=== PATIENT | male | born 1945 ===

== ENCOUNTER 2017-02-06 11:20 | Inpatient (IN) ==
[2017-02-06 11:56] LABS: Basophils % 0.5 % (0.0-0.8); Eosinophils # 0.1 10*3/uL (0.0-0.87); Eosinophils % 1.9 % (0.00-10.9); Hematocrit 33.3 VOL% (42.0-52.0); Hemoglobin 11.8 GM/DL (14.0-18.0); Immature Granulocytes % 0.1 %; Immature Granulocytes Absolute 0.01 #; Lymphocytes # 2.6 10*3/uL (1.4-4.0); Lymphocytes % 35.4 % (21.2-54.2); Mean Corpuscular HGB Conc 35.4 GM/DL (32-36); Mean Corpuscular Hemoglobin 35 PG (27-34); Mean Corpuscular Volume 99.4 FL (87-102); Mean Platelet Volume 9.5 FL (9.6-12.0); Monocytes # 0.9 10*3/uL (0.11-0.8); Monocytes % 11.7 % (1.7-12.7); Neutrophils # 3.8 10*3/uL (1.4-7.4); Neutrophils % 50.4 % (38.7-73.9); Platelet Count 101 T/CUMM (130-400); Red Blood Count 3.35 MC/CUMM (3.8-5.5); Red Cell Distribution Width 15.4 % (9.3-17.3); White Blood Count 7.5 T/CUMM (4-12)
[2017-02-06 12:04] LABS: Apearance,Urine CLEAR (Clear); Bacteria,Urine Occasional /HPF (Few); Bilirubin,Urine Negative (Negative); Blood, Urine Negative (Negative); Glucose,Urine (UA) Negative (Negative); Ketones,Urine Negative (Negative); Nitrite,Urine Negative (Negative); Protein,Urine 100 MG/DL; RBC,Urine 4 /HPF (0-4); Squamous Epithelial Cell,Urine Occasional /HPF (0-10); Urine Color Yellow (Yellow); Urine Specific Gravity 1.009 (1.001-1.035); WBC,Urine 1 /HPF (0-6)
[2017-02-06 12:10] LABS: Albumin 2.2 G/DL (3.4-5.0); Bilirubin,Total 1.5 MG/DL (0.2-1.0); Calcium 8.8 MG/DL (8.5-10.1); Osmolality,Calculated 288.7 MOS/KG (273-304); Total Protein 6.9 G/DL (6.4-8.3)
--- NOTE | 2017-02-06 12:13 | XRay Report ---
XR chest 1V portable Indication: Altered mental status. Comparison: Chest x-ray 01/03/2017 Technique: Portable AP chest was performed. Findings: Elevation of the left hemidiaphragm is demonstrated with stranding opacities overlying the left hemidiaphragm have changed little since comparison study and likely in part chronic. Left upper lung and right lung otherwise clear for degree of inspiration and technique utilized. The heart size is borderline. Mediastinal contours stable. Bones and soft tissues demonstrate no significant abnormalities. Impression: 1. Little change in the chest. No active process is suggested. Stranding within the left lung base is favored to represent a combination of chronic scarring and atelectasis. 02/06/2017 12:10 PM PROCEDURE INTERPRETED AT [facility] DEPARTMENT OF RADIOLOGY Final Report Signed by: Dr. Evens Langston
[2017-02-06 12:14] LABS: Barbiturates Screen,Urine Negative (Negative); Benzodiazepines Screen,Urine Negative (Negative); Cannabinoid Screen,Urine Negative (Negative); Opiate Screen,Urine Negative (Negative); Phencyclidine Screen,Urine Negative (Negative)
--- NOTE | 2017-02-06 12:17 | CT Report ---
CT head/brain wo con Indication: Altered mental status. Comparison: CT head 01/03/2017. Technique: CT of the brain was performed without administration of intravenous contrast. The CT examination was performed using one or more of the following dose reduction techniques: Automatic exposure control, adjustment of the mA and kV according to patient size, use of acute or iterative reconstruction techniques. Findings: There is no evidence of acute intracranial mass, hemorrhage, or infarction. Generalized cerebral atrophy is present. Areas of decreased attenuation within the periventricular white matter and cerebral white matter are present which could be compatible with microvascular ischemia. Moderate vertebral artery atherosclerotic calcification is present. Small focus of low-attenuation within the anterior cortex and white matter of the left frontal lobe may reflect sequelae of watershed infarction. Small focus of low attenuation within the anterior aspect of the right centrum semiovale is stable. The basal cisterns are patent. No significant abnormality is demonstrated to involve the posterior fossa or cerebellum. Left globe is not well visualized but is deformed and small in size. Orbits otherwise demonstrate no significant abnormalities. The paranasal sinuses are clear. No significant abnormality is demonstrated to involve the mastoid air cells. The calvarium and overlying soft tissues demonstrate no evidence of acute pathology. Impression: 1. No CT evidence of acute intracranial pathology. Linear focus of hypoattenuation involving cortex and white matter of the anterior left frontal lobe in a watershed distribution is demonstrated. MRI without intravenous contrast is recommended for further characterization of the brain and exclusion of acute ischemia. 2. Abnormal appearance of the left globe. 02/06/2017 12:12 PM PROCEDURE INTERPRETED AT [facility] DEPARTMENT OF RADIOLOGY Final Report Signed by: Dr. Evens Langston
--- NOTE | 2017-02-06 13:50 | Hospitalist History & Physical ---
<Javier Chang - Last Filed: 02/06/17 13:35> Assessment and Plan (1) Chronic alcohol abuse Status: Acute Assessment and plan: The family adamantly denies that the patient is a current drinker. Although I do not feel that this is the case. His ammonia levels were noted at 85 at the time of admission. We will start alcohol withdrawal protocol and lactulose. We will recheck labs in the a.m. Current Visit: Yes (2) Acute exacerbation of chronic obstructive airways disease Status: Acute Assessment and plan: We will resume home meds as previously ordered and adjust as needed. Current Visit: No (3) Diabetes Status: Acute Assessment and plan: We will start Accu-Cheks with sliding scale coverage, obtain hemoglobin A1c, and monitor. Current Visit: No (4) HTN (hypertension) Status: Acute Assessment and plan: We will resume home medications and adjust as needed. Current Visit: No History of Present Illness Chief complaint: altered mental status/found on floor History of present illness: This is a poor and unfortunate chronically ill 71-year-old male that presented to the ED at [facility] this afternoon via EMS for evaluation of altered mental status. The patient has a very complex medical history significant for diabetes, alcohol addiction and abuse, liver cirrhosis, congestive heart failure, chronic obstructive pulmonary disease, hypertension, and obstructive sleep apnea. The patient has a surgical history significant for heart catheterization with the placement of 2 stents. At the time of presentation, the patient was grossly altered. His family is at bedside they will serve as historians. The daughter reports that the patient was found in the floor and not aware of his surroundings. She reported that he was found this morning. She attempted to assist him off the floor but was not unable to. She then in turn called 911 for emergency assistance. He was evaluated and transported to [facility] for continuation of care. At the time of presentation the patient was altered, combative, and cursing loudly. He was not aware of his surroundings and unable to follow any commands. When questioned he only replied with vulgar language. The daughter reports that the patient no longer drinks in normally sees a doctor at the [facility] who manages his liver disease. The patient was assessed and labs were obtained, his hemoglobin was noted at 11.8, hematocrit of 33.3, platelet count of 101, chloride of 112, BUN of 11, creatinine of 0.80, and magnesium of 2.0. His hepatic panel was obtained, which reported a total bilirubin of 1.50, AST of 42, ALT of 37, alkaline phosphatase of 264, albumin of 2.2, globulin of 4.7, and total protein at 6.9. His ammonia level was noted at 84. Urinalysis was obtained which was significant urobilinogen of 4.0. Urine urine toxicology was essentially unremarkable. His serum alcohol level was noted at less than 15. Chest x-ray was obtained which was significant for stranding within the left lung base and is suggested to represent a combination of chronic scarring and atelectasis. CT of the head was obtained which reported no evidence of acute intracranial pathology however there was a noted abnormal appearance in the left globe. In addition a linear focus of hypoattenuation involving the cortex and white matter of the anterior left frontal lobe in a watershed distribution was demonstrated. After brief discussion with both Dr. Khan and Dr. Lazar, the patient will be admitted to the hospitalist services for continuation of care. Home Medications Medication Instructions Recorded Confirmed Type Aspirin [Children's Aspirin] 81 mg PO DAILY 12/06/14 02/06/17 History Atorvastatin [Lipitor] 20 mg PO BEDTIME #30 tablet 12/11/14 02/06/17 Rx Clopidogrel [Plavix] 75 mg PO DAILY #30 tablet 12/11/14 02/06/17 Rx Lactulose Liquid [Chronulac] 30 gm PO TID #100 udcup 02/26/15 02/06/17 Rx Atropine 1 % Oph Soln [Isopto 1 drop LEFT EYE QID 02/06/17 02/06/17 History Atropine 1%] Calcium Citrate/Vitamin D3 1 each PO BID 02/06/17 02/06/17 History [Calcium Cit-Vit D 315-200 Tab] Carvedilol [Coreg] 12.5 mg PO BID W/MEALS 02/06/17 02/06/17 History Insulin Detemir [Levemir] 5 unit SUBCUT BEDTIME 02/06/17 02/06/17 History Tamsulosin [Flomax] 0.4 mg PO QPM 02/06/17 02/06/17 History hydroCHLOROthiazide 12.5 mg PO QAM 02/06/17 02/06/17 History [Hydrochlorothiazide] Allergies Allergy/AdvReac Type Severity Reaction Status Date / Time No Known Allergies Allergy Verified 02/06/17 11:35 Medical,Surgical,& Family Hx - Medical History Cardio: History of: CHF, Hypertension, AR (2) Endocrine: History of: Diabetes Mellitus (NIDDM), Dyslipidemia Respiratory: History of: COPD, Obstructive Sleep Apnea, Respiratory Problems ( chf) Gastrointestinal: History of: Liver Problems - Surgical History Cardiac Surgeries: Sugical HX of: Cardiac Catheterization (X 2 STENTS) Orthopedic Surgeries: Surgical HX of;: Orthopedic Surgery - Family History Family History: Reports;: Family Diabetes, Family Heart Disease - Social History Smoking Status: Current every day smoker ROS unobtainable: due to mental status Exam - Constitutional Vitals: Period Temp Pulse Resp BP Sys/Stephens Pulse Ox Last 24 Hr 98.3 F-98.3 F 70-70 16-16 177-177/89-89 100 General appearance: normal weight, over weight - Head Head exam: Present: normal inspection, normocephalic, atraumatic - Eye Eye exam: Present: EOMI. Absent: conjunctival injection, nystagmus Pupils: Present: CHARLES, unequal (vision loss to left eye) - ENT ENT exam: Present: normal exam, normal external ear exam, normal oropharynx - Neck Neck exam: Present: normal inspection. Absent: lymphadenopathy, meningismus, thyromegaly - Respiratory Respiratory exam: Present: clear to auscultation bilaterally. Absent: rales, rhonchi, stridor, wheezes - Cardiovascular Cardiovascular exam: Present: regular rate and rhythm. Absent: carotid bruit, diastolic murmur, gallop, JVD, rubs, systolic murmur - GI/Abdominal GI/Abdominal exam: Present: normal bowel sounds, soft. Absent: mass, tenderness , rebound - Extremities Exam Extremities exam: Present: normal inspection, normal capillary refill, full ROM. Absent: edema - Back Exam Back exam: Present: normal inspection - Neurological Exam Neurological exam: Present: altered - Psychiatric Psychiatric exam: Present: agitated, other - Skin Skin exam: Present: normal color, warm, dry Results - Labs CBC & BMP: 02/06/17 11:30 02/06/17 11:30 Lab Results: I have reviewed the past 24 hour labs <Zeferino Lazar - Last Filed: 02/06/17 15:24> History of Present Illness History of present illness: Patient seen and examined independently of ORNAMENTAL MACHINE OPERATOR Bernardo, agree with history, assessment and plan as documented. 71 y/o male with multiple medical problems including cirrhosis being admitted with altered mental status. No family present at time of my exam. Patient is lethargic and confused. CT with an abnormality noted, recommend MRI brain. No overt signs of infection. Afebrile with no leukocytosis. Does have a history of ascites, will obtain abdominal ultrasound. Ammonia is elevated, will treat with lactulose. Patient also has hx of stents, htn, dld and dm. Will hold his home medications for today, hopefully will be more awake tomorrow. Metoprolol IV prn for blood pressure and SSI for DM. Exam - Constitutional Vitals: Period Temp Pulse Resp BP Sys/Stephens Pulse Ox Last 24 Hr 98.3 F-98.3 F 70-70 16-16 177-177/89-89 100 Results - Labs CBC & BMP: 02/06/17 11:30 02/06/17 11:30
[2017-02-06] MEDS: SODIUM CHLORIDE 0.9% 1,000 ML IV SCH (14:43)
[2017-02-06] MEDS ORDERED: LORazepam 2 MG/1 ML VIAL IV PRN (14:43)
[2017-02-06] MEDS ORDERED: METOPROLOL TARTRATE 5 MG/5 ML VIAL IV PRN (15:10)
[2017-02-06 16:02] LABS: Folate 14.3 NG/ML (5.4-24.0)
--- NOTE | 2017-02-06 17:09 | Ultrasound Report ---
US abdomen Indication: AMS, possible ascites Comparison: CT chest abdomen pelvis dated January 03, 2017 Technique: Multiple longitudinal and transverse real-time sonographic images of the abdomen are obtained. Findings: The liver measures 15 cm and demonstrates nodular contour consistent with cirrhosis. There is gallbladder wall thickening. The gallbladder is mildly distended without evidence of cholelithiasis. The common bile duct measures 0.5 cm in diameter. There is no evidence of intrahepatic ductal dilatation. The right and left kidneys measure 10.1 cm and 11.7 cm, respectively. No evidence of hydronephrosis. The spleen measures 11.0 cm without focal abnormality. Evaluation of the pancreas limited secondary to bowel gas.. IVC and aorta: Obscured secondary to bowel gas. Portal vein thrombosis suggested. Small perisplenic and perihepatic ascites present. IMPRESSION: Findings consistent with cirrhosis. Portal vein thrombosis suggested. There is small perihepatic and perisplenic ascites. The gallbladder wall is thickened which can be seen with liver disease but is nonspecific. The gallbladder is mildly distended without evidence of cholelithiasis. If there is clinical concern for cholecystitis, nuclear medicine hepatobiliary imaging study could be obtained for further evaluation. PROCEDURE INTERPRETED AT [facility] DEPARTMENT OF RADIOLOGY Final Report Signed by: Dr Dmitriy Lantigua
[2017-02-06] MEDS: ATROPINE 1 % OPH SOLN 5 ML BOTTLE LEFT EYE SCH ×2 (17:26→22:20)
[2017-02-06] MEDS: LACTULOSE 20 GM/30 ML UDCUP PO SCH ×2 (18:30→22:20)
[2017-02-07] MEDS ORDERED: LACTULOSE 160 GM/240 ML BOTTLE RECTAL PRN (00:27)
[2017-02-07] MEDS: LACTULOSE 160 GM/240 ML BOTTLE RECTAL SCH ×4 (03:10→22:48)
[2017-02-07] MEDS: SODIUM CHLORIDE 0.9% 1,000 ML IV SCH ×2 (04:07→17:46)
[2017-02-07 06:00] LABS: Basophils % 0.6 % (0.0-0.8); Eosinophils # 0.2 10*3/uL (0.0-0.87); Eosinophils % 2.8 % (0.00-10.9); Hematocrit 30.9 VOL% (42.0-52.0); Hemoglobin 10.9 GM/DL (14.0-18.0); Immature Granulocytes % 0.3 %; Immature Granulocytes Absolute 0.02 #; Lymphocytes # 1.9 10*3/uL (1.4-4.0); Lymphocytes % 29.4 % (21.2-54.2); Mean Corpuscular HGB Conc 35.3 GM/DL (32-36); Mean Corpuscular Hemoglobin 35 PG (27-34); Mean Corpuscular Volume 98.7 FL (87-102); Monocytes # 0.9 10*3/uL (0.11-0.8); Monocytes % 13.5 % (1.7-12.7); Neutrophils # 3.5 10*3/uL (1.4-7.4); Neutrophils % 53.4 % (38.7-73.9); Red Blood Count 3.13 MC/CUMM (3.8-5.5); Red Cell Distribution Width 15.2 % (9.3-17.3); White Blood Count 6.5 T/CUMM (4-12)
[2017-02-07 06:01] LABS: Platelet Count 90 T/CUMM (130-400)
[2017-02-07 06:16] LABS: Burr Cells Slight; Hypochromasia 1+; Platelet Estimate Decreased
[2017-02-07 06:17] LABS: Ovalocytes Slight
[2017-02-07 06:39] LABS: Albumin 1.9 G/DL (3.4-5.0); Calcium 8.6 MG/DL (8.5-10.1); Magnesium 1.8 MG/DL (1.8-2.4); Osmolality,Calculated 287.6 MOS/KG (273-304); Phosphorous 2.8 MG/DL (2.5-4.9); Potassium 3.4 MMOL/L (3.5-5.1); Total Protein 5.9 G/DL (6.4-8.3)
[2017-02-07 07:28] LABS: INR 1.1; Partial Thromboplastin Time 34.5 SECS (0-40)
--- NOTE | 2017-02-07 09:00 | Hospitalist Progress Note ---
<Gillian Changda - Last Filed: 02/07/17 08:57> Assessment and Plan (1) Chronic alcohol abuse Status: Acute Assessment and plan: The family adamantly denies that the patient is a current drinker. Although I do not feel that this is the case. His ammonia levels were noted at 85 at the time of admission. We will start alcohol withdrawal protocol and lactulose. We will recheck labs in the a.m. /-Ammonia levels remain elevated, ammonia level noted at 86 this morning. We will continue lactulose per enema as previously ordered. Will recheck ammonia level in a.m. Current Visit: Yes (2) Acute exacerbation of chronic obstructive airways disease Status: Acute Assessment and plan: We will resume home meds as previously ordered and adjust as needed. Current Visit: No (3) Diabetes Status: Acute Assessment and plan: We will start Accu-Cheks with sliding scale coverage, obtain hemoglobin A1c, and monitor. Current Visit: No (4) HTN (hypertension) Status: Acute Assessment and plan: We will resume home medications and adjust as needed. Current Visit: No (5) Hypokalemia Status: Resolved Assessment and plan: Potassium noted at 3.4 this morning, we will start the potassium replacement protocol. We will recheck CMP in a.m. Current Visit: No Hospitalist: Subjective Interval history: Patient seen and examined, chart reviewed. No significant overnight events. Noted increase in ammonia level today ammonia level noted at 86 up from 84 yesterday. Exam - Constitutional Vitals: Period Temp Pulse Resp BP Sys/Stephens Pulse Ox Last 24 Hr 97.7 F-98.3 F 70-113 16-22 131-177/66-91 93-100 General appearance: normal weight, no acute distress - Head Head exam: Present: normal inspection, normocephalic, atraumatic - Eye Eye exam: Present: EOMI. Absent: conjunctival injection Pupils: Present: CHARLES, normal accommodation - ENT ENT exam: Present: normal exam, normal external ear exam - Neck Neck exam: Present: normal inspection. Absent: lymphadenopathy, meningismus, thyromegaly - Respiratory Respiratory exam: Present: clear to auscultation bilaterally. Absent: rales, rhonchi, stridor, wheezes - Cardiovascular Cardiovascular exam: Present: regular rate and rhythm. Absent: carotid bruit, diastolic murmur, gallop, JVD, rubs, systolic murmur - GI/Abdominal GI/Abdominal exam: Present: normal bowel sounds, soft - Extremities Exam Extremities exam: Present: normal inspection, normal capillary refill. Absent: edema - Back Exam Back exam: Present: normal inspection - Neurological Exam Neurological exam: Present: alert, altered - Psychiatric Psychiatric exam: Present: normal affect, normal mood - Skin Skin exam: Present: normal color, warm, dry Results - Labs CBC & BMP: 02/07/17 05:41 02/07/17 05:41 Lab Results: I have reviewed the past 24 hour labs <Ky Rosal - Last Filed: 02/07/17 14:12> Exam - Constitutional Vitals: Period Temp Pulse Resp BP Sys/Stephens Pulse Ox Last 24 Hr 97.7 F-99.0 F 71-113 18-22 131-163/66-91 93-98 Results - Labs CBC & BMP: 02/07/17 05:41 02/07/17 05:41
--- NOTE | 2017-02-07 10:18 | XRay Report ---
XR skull <4V AP/LAT Indication: MRI clearance. Comparison: None. Technique: Puentes, modified Puentes, and lateral images of the orbits. Findings: No metallic foreign bodies are demonstrated within the orbits. Impression: 1. No metallic bodies are noted. 02/07/2017 10:15 AM PROCEDURE INTERPRETED AT [facility] DEPARTMENT OF RADIOLOGY Final Report Signed by: Dr. Evens Langston
--- NOTE | 2017-02-07 10:19 | XRay Report ---
XR chest 1V Indication: MRI clearance. Comparison: AP chest 02/06/2017. Technique: Portable AP chest was performed. Findings: A new punctate density in the region of the left hemidiaphragm is demonstrated that may be artifactual. Metallic foreign body is not excluded. No additional views were provided. Stranding in the left mid to lower lung additionally is noted. Lungs otherwise are grossly clear heart size is normal. Atherosclerotic changes of the aortic knob are present. Bones and soft tissues demonstrate no significant abnormalities. Impression: 1. Appearance of the left lung base has differential considerations including atelectasis, scarring, and infection. 2. Punctate density projecting in the lower left chest has differential considerations including artifact as well as metallic foreign body. PA/lateral chest x-ray is recommended for further evaluation. 02/07/2017 10:15 AM PROCEDURE INTERPRETED AT [facility] DEPARTMENT OF RADIOLOGY Final Report Signed by: Dr. Evens Langston
--- NOTE | 2017-02-07 10:21 | XRay Report ---
XR abdomen 1V Indication: MRI clearance Comparison: None. Technique: Supine AP image of the abdomen was obtained. Findings: Punctate metal density left upper abdomen is seen only on one view and may represent an article of clothing or snap. Elevation left hemidiaphragm is present. No organomegaly is suggested. The bowel gas pattern is unremarkable. Expansile deformity of the anterior left 10th rib is demonstrated and may in part reflect fibrous dysplasia or sequelae of trauma. Intimal calcification of the iliac arteries is demonstrated. Impression: 1. No active process. Small metallic density left upper abdomen is seen only on one image and may represent articles of clothing or other artifact. 2. Expansile lesion of the anterior left 10th rib may reflect sequelae of prior injury, fibrous dysplasia, bone cyst, exact etiology is uncertain. 02/07/2017 10:17 AM PROCEDURE INTERPRETED AT [facility] DEPARTMENT OF RADIOLOGY Final Report Signed by: Dr. Evens Langston
[2017-02-07] MEDS: ATROPINE 1 % OPH SOLN 5 ML BOTTLE LEFT EYE SCH ×4 (10:37→22:48)
[2017-02-07] MEDS ORDERED: GLUCAGON 1 MG VIAL IM PRN (11:54)
[2017-02-07] MEDS ORDERED: DEXTROSE 50% 25 GM/50 ML VIAL IV PRN (11:54)
--- NOTE | 2017-02-07 12:57 | XRay Report ---
XR chest 2V Date: 02/07/2017 11:47 AM History: MRI clearance Comparison: 02/07/2017 Technique: PA and lateral chest Findings: The heart is borderline in size with calcification in the wall of the thoracic aorta. Persistent relative elevation of the left hemidiaphragm with persistent diffuse parenchymal findings at the lung bases, especially the left. Small left pleural effusion. Previously noted metallic density is no longer identified and apparently represented artifactual finding. Degenerative changes are noted. Impression: No metallic foreign body identified. Persistent relative elevation of the left hemidiaphragm with persistent atelectasis/infiltration/scarring at the lung bases, especially the left with small left pleural effusion. PROCEDURE INTERPRETED AT [facility] DEPARTMENT OF RADIOLOGY Final Report Signed by: Dr. Bria Candelaria
--- NOTE | 2017-02-07 16:22 | Magnetic Resonance Report ---
Exam: MR head/brain wo con Date: 02/07/2017 3:09 PM Comparison: CT brain 02/06/2017 Indication: Alteration of consciousness Technique:[Multiple acquisitions were obtained including sagittal T1, coronal T2, and axial ADC, diffusion, FLAIR, T2, GRE, and T1 scans without contrast only. Scans were obtained on a 1.5 Kenzie magnet.] Findings: The scans are degraded by motion artifact. The ventricles are normal in size with no midline displacement. The pituitary has a normal appearance and the cerebellar tonsils are normal in location. No acute infarction is identified on the diffusion scans. There is no evidence of hemorrhage, intracranial mass, or extracerebral collection. Diffuse atrophy and FLAIR/T2 hyperintensities. Minimal mucosal thickening/fluid in the paranasal sinuses. Persistent very deformed left globe with inhomogeneous signal intensity. No acute findings in the temporal bones, or [place] of [place]. Impression: Motion artifact. No definite acute infarction. Diffuse atrophy and moderate microvascular disease. T2 hyperintensities can also be associated with demyelinating disease, vasculitis, viral illness, etc. Persistent very deformed left globe with history of reported prior surgery. Correlation with prior surgical procedure may be helpful for further evaluation of this finding. Minimal sinusitis. PROCEDURE INTERPRETED AT [facility] DEPARTMENT OF RADIOLOGY Final Report Signed by: Dr. Bria Candelaria
[2017-02-08] MEDS: LACTULOSE 160 GM/240 ML BOTTLE RECTAL SCH ×2 (05:09→11:09)
[2017-02-08] MEDS: SODIUM CHLORIDE 0.9% 1,000 ML IV SCH (05:11)
[2017-02-08 05:36] LABS: Basophils % 0.4 % (0.0-0.8); Eosinophils # 0.2 10*3/uL (0.0-0.87); Eosinophils % 2.9 % (0.00-10.9); Hematocrit 30.3 VOL% (42.0-52.0); Hemoglobin 10.5 GM/DL (14.0-18.0); Immature Granulocytes % 0.3 %; Immature Granulocytes Absolute 0.02 #; Lymphocytes # 2.4 10*3/uL (1.4-4.0); Lymphocytes % 35.6 % (21.2-54.2); Mean Corpuscular HGB Conc 34.7 GM/DL (32-36); Mean Corpuscular Hemoglobin 35 PG (27-34); Mean Platelet Volume 9.9 FL (9.6-12.0); Monocytes # 0.8 10*3/uL (0.11-0.8); Monocytes % 12.4 % (1.7-12.7); Neutrophils # 3.3 10*3/uL (1.4-7.4); Neutrophils % 48.4 % (38.7-73.9); Red Blood Count 3.03 MC/CUMM (3.8-5.5); Red Cell Distribution Width 15.2 % (9.3-17.3); White Blood Count 6.8 T/CUMM (4-12)
[2017-02-08 05:40] LABS: Platelet Count 90 T/CUMM (130-400)
[2017-02-08 06:14] LABS: Burr Cells Slight; Hypochromasia Slight; Platelet Estimate Decreased
[2017-02-08 06:21] LABS: Albumin 1.7 G/DL (3.4-5.0); Bilirubin,Total 1.6 MG/DL (0.2-1.0); Calcium 8.3 MG/DL (8.5-10.1); Magnesium 1.9 MG/DL (1.8-2.4); Osmolality,Calculated 289.4 MOS/KG (273-304); Phosphorous 3.1 MG/DL (2.5-4.9); Potassium 3.2 MMOL/L (3.5-5.1); Total Protein 5.8 G/DL (6.4-8.3)
[2017-02-08] MEDS: ATROPINE 1 % OPH SOLN 5 ML BOTTLE LEFT EYE SCH ×4 (09:44→21:44)
[2017-02-08] MEDS: LACTULOSE 20 GM/30 ML UDCUP PO SCH ×2 (12:33→17:13)
--- NOTE | 2017-02-08 12:52 | Hospitalist Progress Note ---
Assessment and Plan - Time spent with patient Time spent with patient: Greater than 30 minutes (1) clinical cirrhosis Status: Acute Current Visit: No (2) Chronic alcohol abuse Status: Acute Current Visit: Yes (3) Hepatomegaly Status: Acute Current Visit: No (4) Hepatic encephalopathy Status: Resolved Current Visit: No (5) CKD (chronic kidney disease) stage 2, GFR 60-89 ml/min Status: Acute Assessment and plan: We will change lactulose to p.o 20mg q8h, monitor ammonia levels. May switch to Librium in a.m and taper as needed Out of bed to chair Watch for withdrawal DC rosado DVT ppx Current Visit: No Hospitalist: Subjective Interval history: More alert and less combative today I met with family, inquiring on when he will be discharged Has not been ambulating No fever Ammonia levels still elevated even though mental status is better Exam - Constitutional Vitals: Period Temp Pulse Resp BP Sys/Stephens Pulse Ox Last 24 Hr 97.9 F-98.9 F 65-77 18-20 143-159/69-82 91-97 Exam: General appearance: normal weight, no acute distress - Head Head exam: Present: normal inspection, normocephalic, atraumatic - Eye Eye exam: Present: EOMI. Absent: conjunctival injection Pupils: Present: CHARLES, normal accommodation - ENT ENT exam: Present: normal exam, normal external ear exam - Neck Neck exam: Present: normal inspection. Absent: lymphadenopathy, meningismus, thyromegaly - Respiratory Respiratory exam: Present: clear to auscultation bilaterally. Absent: rales, rhonchi, stridor, wheezes - Cardiovascular Cardiovascular exam: Present: regular rate and rhythm. Absent: carotid bruit, diastolic murmur, gallop, JVD, rubs, systolic murmur - GI/Abdominal GI/Abdominal exam: Present: normal bowel sounds, soft - Extremities Exam Extremities exam: Present: normal inspection, normal capillary refill. Absent: edema - Back Exam Back exam: Present: normal inspection - Neurological Exam Neurological exam: Present: alert, now oriented - Psychiatric Psychiatric exam: Present: normal affect, normal mood - Skin Skin exam: Present: normal color, warm, dry Results - Labs CBC & BMP: 02/08/17 04:53 02/08/17 04:53 Lab Results: I have reviewed the past 24 hour labs
[2017-02-08] MEDS: ENOXAPARIN 40 MG/0.4 ML SYRINGE SUBCUT SCH (14:29)
[2017-02-09] MEDS: LACTULOSE 20 GM/30 ML UDCUP PO SCH ×4 (00:17→17:11)
[2017-02-09] MEDS: ATROPINE 1 % OPH SOLN 5 ML BOTTLE LEFT EYE SCH ×4 (08:39→22:06)
--- NOTE | 2017-02-09 09:15 | Hospitalist Progress Note ---
Assessment and Plan - Time spent with patient Time spent with patient: Greater than 30 minutes (1) clinical cirrhosis Status: Acute Current Visit: No (2) Chronic alcohol abuse Status: Acute Current Visit: Yes (3) Hepatomegaly Status: Acute Current Visit: No (4) Hepatic encephalopathy Status: Resolved Current Visit: No (5) CKD (chronic kidney disease) stage 2, GFR 60-89 ml/min Status: Acute Assessment and plan: Continue lactulose as p.o 20mg q8h, monitor ammonia levels. May switch to Librium and gradually taper as needed Out of bed to chair and ambulate Obtain ABG Watch for withdrawal, initiate alcohol withdrawal protocol if any withdrawal symptoms are noted. DAVON BURTON ppx Current Visit: No Hospitalist: Subjective Interval history: 71-year-old with alcohol abuse patient was admitted for altered mental status suspected to be due to hepatic encephalopathy, treated with rectal lactulose, mental status has now improved and almost at baseline. Ammonia level still slightly elevated despite improved sensorium. We will only started letting him out of bed to chair yesterday. I understand he now ambulates around the room and to the bathroom. No withdrawal symptoms, more calm. Hemodynamically stable but however has marked hypoxemia on O2 saturation this morning. Will obtain an ABG. No fever Exam - Constitutional Vitals: Period Temp Pulse Resp BP Sys/Stephens Pulse Ox Last 24 Hr 98.4 F-99.7 F 76-90 16-28 118-159/59-100 90-99 Exam: General appearance: normal weight, no acute distress - Head Head exam: Present: normal inspection, normocephalic, atraumatic - Eye Eye exam: Present: EOMI. Absent: conjunctival injection Pupils: Present: CHARLES, normal accommodation - ENT ENT exam: Present: normal exam, normal external ear exam - Neck Neck exam: Present: normal inspection. Absent: lymphadenopathy, meningismus, thyromegaly - Respiratory Respiratory exam: Present: clear to auscultation bilaterally. Absent: rales, rhonchi, stridor, wheezes - Cardiovascular Cardiovascular exam: Present: regular rate and rhythm. Absent: carotid bruit, diastolic murmur, gallop, JVD, rubs, systolic murmur - GI/Abdominal GI/Abdominal exam: Present: normal bowel sounds, soft - Extremities Exam Extremities exam: Present: normal inspection, normal capillary refill. Absent: edema - Back Exam Back exam: Present: normal inspection - Neurological Exam Neurological exam: Present: alert, now oriented - Psychiatric Psychiatric exam: Present: normal affect, normal mood - Skin Skin exam: Present: normal color, warm, dry Results - Labs CBC & BMP: 02/08/17 04:53 02/08/17 04:53 Lab Results: I have reviewed the past 24 hour labs
[2017-02-09 09:37] LABS: Allen Test Positive; Pt O2 Delivery Device Room Air
[2017-02-09 09:39] LABS: ABG Base Excess -3.9 MMOL/L (-2.5-2.5); ABG HCO3 21.1 MMOL/L (20-26); ABG Oxygen Saturation 96.4 % (95-100); ABG PCO2 31.4 MM HG (35-48); ABG PH 7.409 (7.35-7.45); ABG PO2 81.4 MM HG (80-95)
[2017-02-09] MEDS: ENOXAPARIN 40 MG/0.4 ML SYRINGE SUBCUT SCH (12:54)
[2017-02-10] MEDS: LACTULOSE 20 GM/30 ML UDCUP PO SCH ×4 (00:07→18:03)
[2017-02-10 08:23] LABS: Basophils % 0.7 % (0.0-0.8); Eosinophils # 0.3 10*3/uL (0.0-0.87); Eosinophils % 4.7 % (0.00-10.9); Hematocrit 30.5 VOL% (42.0-52.0); Hemoglobin 10.8 GM/DL (14.0-18.0); Immature Granulocytes % 0.2 %; Immature Granulocytes Absolute 0.01 #; Lymphocytes # 2.2 10*3/uL (1.4-4.0); Lymphocytes % 37.5 % (21.2-54.2); Mean Corpuscular HGB Conc 35.4 GM/DL (32-36); Mean Corpuscular Hemoglobin 35 PG (27-34); Mean Platelet Volume 9.7 FL (9.6-12.0); Monocytes # 0.7 10*3/uL (0.11-0.8); Monocytes % 12.5 % (1.7-12.7); Neutrophils # 2.6 10*3/uL (1.4-7.4); Neutrophils % 44.4 % (38.7-73.9); Red Blood Count 3.05 MC/CUMM (3.8-5.5); Red Cell Distribution Width 15.1 % (9.3-17.3); White Blood Count 5.9 T/CUMM (4-12)
[2017-02-10 08:26] LABS: Platelet Count 86 T/CUMM (130-400)
[2017-02-10 09:02] LABS: Albumin 1.7 G/DL (3.4-5.0); Bilirubin,Total 1.3 MG/DL (0.2-1.0); Magnesium 1.8 MG/DL (1.8-2.4); Osmolality,Calculated 286.8 MOS/KG (273-304); Potassium 3.5 MMOL/L (3.5-5.1); Total Protein 5.8 G/DL (6.4-8.3)
[2017-02-10 09:19] LABS: Platelet Estimate Decreased
[2017-02-10] MEDS: ATROPINE 1 % OPH SOLN 5 ML BOTTLE LEFT EYE SCH ×4 (09:20→21:15)
--- NOTE | 2017-02-10 10:29 | Hospitalist Progress Note ---
Assessment and Plan (1) Chronic alcohol abuse Status: Acute Assessment and plan: The family adamantly denies that the patient is a current drinker. Although I do not feel that this is the case. His ammonia levels were noted at 85 at the time of admission. We will start alcohol withdrawal protocol and lactulose. We will recheck labs in the a.m. /-Ammonia levels remain elevated, ammonia level noted at 86 this morning. We will continue lactulose per enema as previously ordered. Will recheck ammonia level in a.m. /-ammonia level noted at is an 82. The patient experienced a slight drop since admission with the lowest being at 74. His mental status has improved greatly. His speech is clear and appropriate, he reports verbalizes desire to go home. We will monitor him tonight, hopefully his ammonia level will decrease. We will continue lactulose as previously ordered and recheck in a.m. Current Visit: Yes (2) Acute exacerbation of chronic obstructive airways disease Status: Acute Assessment and plan: We will resume home meds as previously ordered and adjust as needed. Current Visit: No (3) Diabetes Status: Acute Assessment and plan: We will start Accu-Cheks with sliding scale coverage, obtain hemoglobin A1c, and monitor. Current Visit: No (4) HTN (hypertension) Status: Acute Assessment and plan: We will resume home medications and adjust as needed. Current Visit: No Hospitalist: Subjective Interval history: Patient seen and examined, chart reviewed. No significant overnight events reported per staff. Patient is sitting at bedside states he is ready to go home. Exam - Constitutional Vitals: Period Temp Pulse Resp BP Sys/Stephens Pulse Ox Last 24 Hr 98.2 F-99.2 F 75-83 16-20 114-125/56-67 93-96 General appearance: normal weight, no acute distress - Head Head exam: Present: normal inspection, normocephalic, atraumatic - Eye Eye exam: Present: EOMI. Absent: conjunctival injection Pupils: Present: CHARLES, normal accommodation - ENT ENT exam: Present: normal exam, normal external ear exam, normal oropharynx - Neck Neck exam: Present: normal inspection. Absent: lymphadenopathy, meningismus, tenderness, thyromegaly - Respiratory Respiratory exam: Present: clear to auscultation bilaterally. Absent: rales, rhonchi, stridor, wheezes - Cardiovascular Cardiovascular exam: Present: regular rate and rhythm. Absent: carotid bruit, diastolic murmur, gallop, JVD, rubs, systolic murmur - GI/Abdominal GI/Abdominal exam: Present: normal bowel sounds, soft - Extremities Exam Extremities exam: Present: normal inspection, normal capillary refill, full ROM. Absent: edema - Back Exam Back exam: Present: normal inspection - Neurological Exam Neurological exam: Present: alert, oriented X3, CN II-XII intact - Psychiatric Psychiatric exam: Present: normal affect - Skin Skin exam: Present: normal color, warm, dry Results - Labs CBC & BMP: 02/10/17 08:13 02/10/17 08:13
[2017-02-10] MEDS: ENOXAPARIN 40 MG/0.4 ML SYRINGE SUBCUT SCH (12:52)
[2017-02-11] MEDS: LACTULOSE 20 GM/30 ML UDCUP PO SCH ×5 (00:17→20:46)
[2017-02-11 07:26] LABS: Basophils % 0.6 % (0.0-0.8); Eosinophils # 0.2 10*3/uL (0.0-0.87); Eosinophils % 3.2 % (0.00-10.9); Hematocrit 30.7 VOL% (42.0-52.0); Hemoglobin 10.7 GM/DL (14.0-18.0); Immature Granulocytes % 0.4 %; Immature Granulocytes Absolute 0.03 #; Lymphocytes # 2.9 10*3/uL (1.4-4.0); Lymphocytes % 39.7 % (21.2-54.2); Mean Corpuscular HGB Conc 34.9 GM/DL (32-36); Mean Corpuscular Hemoglobin 35 PG (27-34); Mean Corpuscular Volume 100.7 FL (87-102); Monocytes # 0.8 10*3/uL (0.11-0.8); Monocytes % 11.3 % (1.7-12.7); Neutrophils # 3.3 10*3/uL (1.4-7.4); Neutrophils % 44.8 % (38.7-73.9); Red Blood Count 3.05 MC/CUMM (3.8-5.5); Red Cell Distribution Width 15.3 % (9.3-17.3); White Blood Count 7.3 T/CUMM (4-12)
[2017-02-11 07:29] LABS: Platelet Count 94 T/CUMM (130-400)
[2017-02-11 07:56] LABS: Albumin 1.6 G/DL (3.4-5.0); Bilirubin,Total 1.4 MG/DL (0.2-1.0); Calcium 8.1 MG/DL (8.5-10.1); Magnesium 2.1 MG/DL (1.8-2.4); Osmolality,Calculated 289.7 MOS/KG (273-304); Phosphorous 2.4 MG/DL (2.5-4.9); Potassium 3.7 MMOL/L (3.5-5.1); Total Protein 5.9 G/DL (6.4-8.3)
[2017-02-11 07:56] LABS: Platelet Estimate Decreased
--- NOTE | 2017-02-11 08:35 | Hospitalist Progress Note ---
Assessment and Plan (1) Chronic alcohol abuse Status: Chronic Assessment and plan: Family reports no active use at this time. He does appear to have established cirrhosis and has elevated ammonia levels associated with encephalopathic features. Current Visit: Yes (2) Obstructive sleep apnea Status: Suspected Assessment and plan: Does not appear followed up on 2015 sleep consult. Current Visit: No (3) Diabetes Status: Chronic Current Visit: No Qualifiers: Diabetes mellitus type: type 2 Hospitalist: Subjective Interval history: 71-year-old male with alcoholic liver disease who had presented with altered mental status elevated ammonia level. Documented elevated ammonia level during admission in 2014 with MRI at this time showing diffuse atrophy with microvascular changes. The patient has evidence of portal hypertension. He is mildly confused this morning but does not have any asterixis. His initially elevated ammonia level has continued to rise. He reports 2 loose to liquid bowel movements daily. He was taking 90 g of lactulose at home (supposedly) and on 80 g in hospital his ammonia level is currently risen to 131. His vital signs are stable he is afebrile no evidence of GI bleeding etc. He does not appear to have significant abdominal ascites. Exam - Constitutional Vitals: Period Temp Pulse Resp BP Sys/Stephens Pulse Ox Last 24 Hr 98.8 F-99.4 F 79-90 16-21 103-136/54-68 94-96 General appearance: normal weight - Respiratory Respiratory exam: Present: clear to auscultation bilaterally. Absent: rales, rhonchi, wheezes - Cardiovascular Cardiovascular exam: Present: regular rate and rhythm - GI/Abdominal GI/Abdominal exam: Present: normal bowel sounds. Absent: ascites, tenderness, rebound - Extremities Exam Extremities exam: Absent: edema - Neurological Exam Neurological exam: Absent: alert Results - Labs CBC & BMP: 02/11/17 06:07 02/11/17 06:06 Labs: Total bilirubin 1.4 AST 84 Albumin 1.6 Ammonia 131
[2017-02-11] MEDS: RIFAXIMIN 550 MG TABLET PO SCH ×2 (08:50→20:46)
[2017-02-11] MEDS: ATROPINE 1 % OPH SOLN 5 ML BOTTLE LEFT EYE SCH ×4 (08:50→20:46)
[2017-02-11] MEDS: ENOXAPARIN 40 MG/0.4 ML SYRINGE SUBCUT SCH (13:03)
[2017-02-12] MEDS: LACTULOSE 20 GM/30 ML UDCUP PO SCH ×4 (01:53→20:56)
--- NOTE | 2017-02-12 08:00 | Hospitalist Progress Note ---
Assessment and Plan (1) Chronic alcohol abuse Status: Chronic Assessment and plan: Family reports no active use at this time. He does appear to have established cirrhosis and has elevated ammonia levels associated with encephalopathic features. Current Visit: Yes (2) Obstructive sleep apnea Status: Suspected Assessment and plan: Does not appear followed up on 2015 sleep consult. Current Visit: No (3) Diabetes Status: Chronic Current Visit: No Qualifiers: Diabetes mellitus type: type 2 Hospitalist: Subjective Interval history: 71-year-old male with alcoholic liver disease had presented with altered mental status and elevated ammonia level. He has had documented elevated ammonia levels dating back to 2014 here with an MRI on this occasion showing only diffuse atrophy and microvascular changes while in hospital his ammonia level actually krystyna. Today's ammonia level is fallen to 67 down from 131 yesterday. His vital signs are stable he is afebrile. His mental status is somewhat difficult to assess. Exam - Constitutional Vitals: Period Temp Pulse Resp BP Sys/Stephens Pulse Ox Last 24 Hr 98.1 F-99.1 F 77-102 16-20 104-140/60-70 94-97 General appearance: normal weight - Respiratory Respiratory exam: Present: clear to auscultation bilaterally. Absent: rales, rhonchi, wheezes - Cardiovascular Cardiovascular exam: Present: regular rate and rhythm - GI/Abdominal GI/Abdominal exam: Present: normal bowel sounds. Absent: ascites, tenderness, rebound - Extremities Exam Extremities exam: Absent: edema - Neurological Exam Neurological exam: Present: alert, oriented X3 Results - Labs CBC & BMP: 02/11/17 06:07 02/11/17 06:06 Labs: Ammonia level 67
[2017-02-12] MEDS: RIFAXIMIN 550 MG TABLET PO SCH ×2 (08:42→20:58)
[2017-02-12] MEDS: ATROPINE 1 % OPH SOLN 5 ML BOTTLE LEFT EYE SCH ×4 (08:43→20:58)
[2017-02-12] MEDS: ENOXAPARIN 40 MG/0.4 ML SYRINGE SUBCUT SCH (13:05)
[2017-02-13] MEDS: LACTULOSE 20 GM/30 ML UDCUP PO SCH ×4 (02:28→21:03)
[2017-02-13 06:54] LABS: Osmolality,Calculated 286.8 MOS/KG (273-304); Potassium 3.3 MMOL/L (3.5-5.1)
--- NOTE | 2017-02-13 07:41 | Hospitalist Progress Note ---
Assessment and Plan (1) Chronic alcohol abuse Status: Chronic Assessment and plan: Family reports no active use at this time. He has established cirrhosis and has elevated ammonia levels associated with encephalopathic features. Current Visit: Yes (2) Obstructive sleep apnea Status: Suspected Assessment and plan: Does not appear followed up on 2014 sleep consult. Current Visit: No (3) Diabetes Status: Chronic Current Visit: No Qualifiers: Diabetes mellitus type: type 2 Hospitalist: Subjective Interval history: 71-year-old male alcoholic liver disease presenting with altered mental status and elevated ammonia level. He has had long-term intermittent elevations in his ammonia level with previous MRI this admission showing diffuse atrophy only with microvascular changes. In addition abdominal ultrasound this admission shows no significant ascites. Rifaximin was added to his regimen and his lactulose was increased. Initial fall and ammonia level with improvement in sensorium was noted. His ammonia level today is gone up slightly and once again his mental status is less clear. The patient reports only a single bowel movement yesterday however it is not clear if this is reliable. We do note that his potassium has dropped compared to previous level. Exam - Constitutional Vitals: Period Temp Pulse Resp BP Sys/Stephens Pulse Ox Last 24 Hr 98.4 F-99 F 73-83 20-20 111-141/59-98 95-98 General appearance: normal weight - Respiratory Respiratory exam: Present: clear to auscultation bilaterally. Absent: rales, rhonchi, wheezes - Cardiovascular Cardiovascular exam: Present: regular rate and rhythm - GI/Abdominal GI/Abdominal exam: Present: normal bowel sounds. Absent: ascites, tenderness - Extremities Exam Extremities exam: Absent: edema - Neurological Exam Neurological exam: Absent: alert Results - Labs CBC & BMP: 02/11/17 06:07 02/13/17 05:31 Labs: Ammonia level 79
[2017-02-13] MEDS: RIFAXIMIN 550 MG TABLET PO SCH ×2 (08:38→21:04)
[2017-02-13] MEDS: POTASSIUM CHLORIDE 20 MEQ/15 ML UDCUP PO SCH ×3 (08:39→16:57)
[2017-02-13] MEDS: ATROPINE 1 % OPH SOLN 5 ML BOTTLE LEFT EYE SCH ×4 (08:41→21:04)
[2017-02-13] MEDS: ENOXAPARIN 40 MG/0.4 ML SYRINGE SUBCUT SCH (13:33)
[2017-02-14] MEDS: LACTULOSE 20 GM/30 ML UDCUP PO SCH ×4 (02:33→22:53)
[2017-02-14 06:37] LABS: Calcium 7.8 MG/DL (8.5-10.1); Osmolality,Calculated 285.8 MOS/KG (273-304); Potassium 4.2 MMOL/L (3.5-5.1)
[2017-02-14] MEDS: ATROPINE 1 % OPH SOLN 5 ML BOTTLE LEFT EYE SCH ×4 (10:50→22:54)
[2017-02-14] MEDS: RIFAXIMIN 550 MG TABLET PO SCH ×2 (10:50→22:53)
[2017-02-14] MEDS: ENOXAPARIN 40 MG/0.4 ML SYRINGE SUBCUT SCH (15:34)
--- NOTE | 2017-02-14 16:03 | Hospitalist Progress Note ---
Assessment and Plan (1) Chronic alcohol abuse Status: Chronic Current Visit: Yes (2) Hepatic encephalopathy Status: Resolved Current Visit: No (3) Diabetes Status: Chronic Current Visit: No Qualifiers: Diabetes mellitus type: type 2 Hospitalist: Subjective Interval history: No acute events overnight. Only reports that he is sleepy. Appears to be more awake today. Exam - Constitutional Vitals: Period Temp Pulse Resp BP Sys/Stephens Pulse Ox Last 24 Hr 98.1 F-99 F 78-85 18-20 112-140/60-70 94-98 General appearance: over weight - Head Head exam: Present: normocephalic, atraumatic - Eye Eye exam: Present: EOMI Pupils: Present: CHARLES - ENT ENT exam: Present: normal exam - Neck Neck exam: Present: normal inspection - Respiratory Respiratory exam: Present: clear to auscultation bilaterally. Absent: wheezes - Cardiovascular Cardiovascular exam: Present: regular rate and rhythm - GI/Abdominal GI/Abdominal exam: Present: normal bowel sounds, soft. Absent: tenderness, rebound - Extremities Exam Extremities exam: Present: normal inspection - Back Exam Back exam: Present: normal inspection - Neurological Exam Neurological exam: Present: alert - Psychiatric Psychiatric exam: Present: normal affect, normal mood - Skin Skin exam: Present: warm, intact Results - Labs CBC & BMP: 02/11/17 06:07 02/14/17 04:51
[2017-02-15] MEDS: LACTULOSE 20 GM/30 ML UDCUP PO SCH ×4 (04:55→21:15)
[2017-02-15] MEDS: ATROPINE 1 % OPH SOLN 5 ML BOTTLE LEFT EYE SCH ×4 (08:20→21:17)
[2017-02-15] MEDS: RIFAXIMIN 550 MG TABLET PO SCH ×2 (10:47→21:14)
[2017-02-15] MEDS ORDERED: DEXTROSE 50% 25 GM/50 ML VIAL IV PRN (13:51)
[2017-02-15] MEDS ORDERED: GLUCAGON 1 MG VIAL IM PRN (13:51)
--- NOTE | 2017-02-15 13:55 | Hospitalist Progress Note ---
Assessment and Plan (1) Chronic alcohol abuse Status: Chronic Current Visit: Yes (2) Hepatic encephalopathy Status: Resolved Assessment and plan: Improving Possible discharge soon Current Visit: No (3) Diabetes Status: Chronic Assessment and plan: SSI Current Visit: No Qualifiers: Diabetes mellitus type: type 2 Hospitalist: Subjective Interval history: No acute events overnight. Patient more awake today. Oriented x3. Exam - Constitutional Vitals: Period Temp Pulse Resp BP Sys/Stephens Pulse Ox Last 24 Hr 98.2 F-99.2 F 80-92 18-21 107-125/58-70 90-96 General appearance: over weight - Head Head exam: Present: normocephalic, atraumatic - Eye Eye exam: Present: EOMI Pupils: Present: CHARLES - ENT ENT exam: Present: normal exam - Neck Neck exam: Present: normal inspection - Respiratory Respiratory exam: Present: clear to auscultation bilaterally. Absent: rhonchi, wheezes - Cardiovascular Cardiovascular exam: Present: regular rate and rhythm - GI/Abdominal GI/Abdominal exam: Present: normal bowel sounds, soft. Absent: tenderness, rebound - Extremities Exam Extremities exam: Present: normal inspection - Back Exam Back exam: Present: normal inspection - Neurological Exam Neurological exam: Present: alert, oriented X3 - Psychiatric Psychiatric exam: Present: normal affect, normal mood - Skin Skin exam: Present: warm, intact Results - Labs CBC & BMP: 02/11/17 06:07 02/14/17 04:51
[2017-02-15] MEDS ORDERED: TAMSULOSIN 0.4 MG CAPSULE PO SCH (19:00)
[2017-02-15] MEDS: ENOXAPARIN 40 MG/0.4 ML SYRINGE SUBCUT SCH (19:17)
[2017-02-15] MEDS: INSULIN LISPRO 100 UNIT/ML SUBCUT SCH ×2 (19:18→21:13)
[2017-02-15] MEDS: CLOPIDOGREL 75 MG TABLET PO SCH (19:19)
[2017-02-15] MEDS: CARVEDILOL 12.5 MG TABLET PO SCH (19:20)
[2017-02-15] MEDS ORDERED: ATORVASTATIN 20 MG TABLET PO SCH (21:00)
[2017-02-16] MEDS: LACTULOSE 20 GM/30 ML UDCUP PO SCH ×2 (04:30→10:58)
[2017-02-16] MEDS ORDERED: ASPIRIN CHEW 81 MG TABLET PO SCH (09:00)
--- NOTE | 2017-02-16 10:05 | Hospitalist Progress Note ---
Assessment and Plan (1) Chronic alcohol abuse Status: Chronic Current Visit: Yes (2) Hepatic encephalopathy Status: Resolved Assessment and plan: Improving Possible discharge soon Current Visit: No (3) Diabetes Status: Chronic Assessment and plan: SSI Current Visit: No Qualifiers: Diabetes mellitus type: type 2 Hospitalist: Subjective Interval history: 71-year-old male that presented to the ED at [facility] via EMS for evaluation of altered mental status. The patient has a very complex medical history significant for diabetes, alcohol addiction and abuse, liver cirrhosis, congestive heart failure, chronic obstructive pulmonary disease, hypertension, and obstructive sleep apnea. At the time of presentation , the patient was grossly altered. His daughter reported that the patient was found on the floor and not aware of his surroundings. She attempted to assist him off the floor but was not unable to. She then in turn called 911 for emergency assistance. He was evaluated and transported to [facility] for continuation of care. He was found to have an elevated ammonia level. He has had long-term intermittent elevations in his ammonia level with previous MRI this admission showing diffuse atrophy only with microvascular changes. In addition abdominal ultrasound this admission showed no significant ascites. Rifaximin was added to his regimen and his lactulose was increased. His ammonia level was initially up and down, difficult to manage. He is now oriented x3 ambulating around his room. He has now reached maximal benefit of inpatient stay and will be discharged to home. Exam - Constitutional Vitals: Period Temp Pulse Resp BP Sys/Stephens Pulse Ox Last 24 Hr 98.0 F-99.3 F 64-80 16-20 118-150/59-73 90-93 Results - Labs CBC & BMP: 02/11/17 06:07 02/14/17 04:51
--- NOTE | 2017-02-16 10:10 | Discharge Summary ---
Hospital Course - Hospital Course Hospital Course: 71-year-old male that presented to the ED at [facility] via EMS for evaluation of altered mental status. The patient has a very complex medical history significant for diabetes, alcohol addiction and abuse, liver cirrhosis, congestive heart failure, chronic obstructive pulmonary disease, hypertension, and obstructive sleep apnea. At the time of presentation , the patient was grossly altered. His daughter reported that the patient was found on the floor and not aware of his surroundings. She attempted to assist him off the floor but was not unable to. She then in turn called 911 for emergency assistance. He was evaluated and transported to [facility] for continuation of care. He was found to have an elevated ammonia level. He has had long-term intermittent elevations in his ammonia level with previous MRI this admission showing diffuse atrophy only with microvascular changes. In addition abdominal ultrasound this admission showed no significant ascites. Rifaximin was added to his regimen and his lactulose was increased. His ammonia level was initially up and down, difficult to manage. He is now oriented x3 ambulating around his room. He has now reached maximal benefit of inpatient stay and will be discharged to home. Diagnosis - Discharge Diagnosis (1) Chronic alcohol abuse Status: Chronic (2) Hepatic encephalopathy Status: Resolved (3) Diabetes Status: Chronic Discharge Plan - Discharge Data Disposition: Disch To Home/Self Care Condition at Discharge: Stable Discharge Diet: advance to your usual diet Activity: resume usual activities as tolerated Hygiene: no restrictions Weight Bearing at Discharge: weight bear as tolerated Contact your physician if you experience:: fever over 101, Shortness of breath - Discharge Medications New Rifaximin [Xifaxan] 550 mg PO BID #60 tablet Continue Aspirin [Children's Aspirin] 81 mg PO DAILY Atorvastatin [Lipitor] 20 mg PO BEDTIME #30 tablet Clopidogrel [Plavix] 75 mg PO DAILY #30 tablet Lactulose Liquid [Chronulac] 30 gm PO TID #100 udcup Insulin Detemir [Levemir] 5 unit SUBCUT BEDTIME Carvedilol [Coreg] 12.5 mg PO BID W/MEALS Atropine 1 % Oph Soln [Isopto Atropine 1%] 1 drop LEFT EYE QID Tamsulosin [Flomax] 0.4 mg PO QPM Calcium Citrate/Vitamin D3 [Calcium Cit-Vit D 315-200 Tab] 1 each PO BID Discontinued hydroCHLOROthiazide [Hydrochlorothiazide] 12.5 mg PO QAM - Follow Up or Referral - Forms/Instructions Exam - Constitutional Vitals: Period Temp Pulse Resp BP Sys/Stephens Pulse Ox Last 24 Hr 98.0 F-99.3 F 64-80 16-20 118-150/59-73 90-93 General appearance: over weight - Head Head exam: Present: normocephalic, atraumatic - Eye Eye exam: Present: EOMI Pupils: Present: CHARLES - ENT ENT exam: Present: normal exam - Neck Neck exam: Present: normal inspection - Respiratory Respiratory exam: Present: clear to auscultation bilaterally. Absent: rhonchi, wheezes - Cardiovascular Cardiovascular exam: Present: regular rate and rhythm - GI/Abdominal GI/Abdominal exam: Present: normal bowel sounds, soft. Absent: tenderness, rebound - Extremities Exam Extremities exam: Present: normal inspection - Back Exam Back exam: Present: normal inspection - Neurological Exam Neurological exam: Present: alert, oriented X3 - Psychiatric Psychiatric exam: Present: normal affect, normal mood - Skin Skin exam: Present: warm, intact Discharge Results Labs on day of discharge: Labs from last 24 hours 02/16/17 02/15/17 02/15/17 07:37 20:00 16:39 POC Glucose 155 H 169 H 232 H 02/15/17 11:29 POC Glucose 217 H DS: Provider Date of admission: 02/06/17 13:11 Primary care physician: Mike Hull MD Attending physician on admission: Zeferino Lazar MD Consults: 02/06/17 15:03 Consult to Dietitian [CONS] Routine Reason for Dietitian: Dietary Consult Consult to Pastoral Services [CONS] Routine Comment: Pastoral Screen: Request Certified Forklift Operator Visit Pastoral Screen Source of Request: Family 02/15/17 13:48 Consult to Physical Therapy [CONS] Routine Reason for Physical Therapy: Evaluate and Treat Discharging clinician: Zeferino Lazar MD
[2017-02-16] MEDS: ATROPINE 1 % OPH SOLN 5 ML BOTTLE LEFT EYE SCH (10:56)
[2017-02-16] MEDS: RIFAXIMIN 550 MG TABLET PO SCH (10:57)
[2017-02-16] MEDS: INSULIN LISPRO 100 UNIT/ML SUBCUT SCH (10:57)
[2017-02-16] MEDS: CARVEDILOL 12.5 MG TABLET PO SCH (10:57)
[2017-02-16] MEDS: CLOPIDOGREL 75 MG TABLET PO SCH (10:58)
[2017-02-16 21:10] VITALS: BP 94/55
--- NOTE | 2017-02-17 15:20 | Physician Query Form ---
CLICK EDIT DOCUMENT TO SELECT QUERY ANSWER --> OK --> SIGN Cathleen Adkins RN Clinical [employer] Professor W) [phone] (f) [phone] [email or web address]: Make your selection(s) from the choices in EACH section by typing an "x" and enter comments in the comment section. Please use your independent medical judgment in providing your response. This request does not imply that any particular answer is desired or expected. CLINICAL INDICATORS: (Providers should not edit this section) Based on documentation of "Hepatic encephalopathy" "time of presentation, the patient was grossly altered. His daughter reported that the patient was found on the floor and not aware of his surroundings." US done, lactulose was increased, ammonia level was followed. Please clarify the acuity for the diagnosis of HEPATIC ENCEPHALOPATHY Clarify which of the following accurately represents the acuity of the above diagnosis. ( ) Acute ( x) Acute on chronic ( ) Chronic stable condition ( ) Remission ( ) Other, please specify: ( ) Clinically unable to determine COMMENTS: PLEASE ALSO DOCUMENT RESPONSE IN PROGRESS NOTES AND/OR DISCHARGE SUMMARY Use of terms such as suspected, likely, or probable (associated with a specific diagnosis that is being evaluated, monitored, or treated as if it exists) are acceptable and can be restated in the discharge summary if not ruled out. MTDD
== END 2017-02-16 12:00 | disposition home health service (06) | DRG 442 ==
LOC: EDBD → EDUNIT# → N.ED 11:20 → N.EDINP 13:11 → SUATTDRO 13:11 → N.2E 14:24
PROVIDERS: ADMIT Internal Medicine; ATTEND Internal Medicine

== ENCOUNTER 2017-05-29 23:30 | Inpatient (IN) ==
--- NOTE | 2017-05-30 00:55 | Emergency Department Note ---
Arrival - Arrival Chief Complaint: Altered Mental Status Stated Complaint: ams ED Nursing Triage Note: Patient is a transfer from [facility] ER for further evaluation of altered mental status. Mode of Arrival: Stretcher Time Seen by Provider: 05/30/17 00:16 - History of Present Illness HPI Narrative: This 71-year-old male of heritage with a history of type 2 diabetes, alcohol abuse, alcohol-related liver cirrhosis, congestive heart failure, COPD, hypertension, obstructive sleep apnea who presents for evaluation of altered mental status. His family member said that he appeared to be sleepy and she helped him walk to his bed but she was unable to wake him thereafter. She noticed that he was drooling and called an ambulance. At [facility] he was evaluated and his serum ammonia level was found to be 45. His urine tox screen did not demonstrate a source of a drug overdose to explain his mental status change in his laboratory tests were otherwise normal. The patient does respond to verbal stimuli but falls back to sleep easily. Because he has obstructive sleep apnea we will add an venous blood gas on the outside chance that the patient has CO2 retention as the cause of his altered mental status. Otherwise the patient will be admitted and the case was discussed with the hospitalist for admission. Allergies/Adverse Reactions: Allergies Allergy/AdvReac Type Severity Reaction Status Date / Time No Known Allergies Allergy Verified 02/06/17 11:35 Home Medications: Home Medications Medication Instructions Recorded Confirmed Type Aspirin [Children's Aspirin] 81 mg PO DAILY 12/06/14 02/06/17 History Atorvastatin [Lipitor] 20 mg PO BEDTIME #30 tablet 12/11/14 02/06/17 Rx Clopidogrel [Plavix] 75 mg PO DAILY #30 tablet 12/11/14 02/06/17 Rx Lactulose Liquid [Chronulac] 30 gm PO TID #100 udcup 02/26/15 02/06/17 Rx Atropine 1 % Oph Soln [Isopto 1 drop LEFT EYE QID 02/06/17 02/06/17 History Atropine 1%] Calcium Citrate/Vitamin D3 1 each PO BID 02/06/17 02/06/17 History [Calcium Cit-Vit D 315-200 Tab] Carvedilol [Coreg] 12.5 mg PO BID W/MEALS 02/06/17 02/06/17 History Insulin Detemir [Levemir] 5 unit SUBCUT BEDTIME 02/06/17 02/06/17 History Tamsulosin [Flomax] 0.4 mg PO QPM 02/06/17 02/06/17 History Rifaximin [Xifaxan] 550 mg PO BID #60 tablet 02/16/17 Rx Review of System - Review of System Constitutional: Absent: fever Eyes: Absent: vision change Head/Ears/Nose/Throat: Absent: epistaxis, nasal drainage Respiratory: Absent: respiratory distress, wheezing Cardiovascular: Absent: chest pain, edema Gastrointestinal: Absent: diarrhea, constipation, hematemesis Genitourinary male: Absent: urgency, dysuria Musculoskeletal: Absent: joint swelling, lower back pain Skin: Absent: change in color, change in hair/nails Neurological: Absent: headache, numbness Psychiatric: Absent: anxiety, depression Endocrine: Absent: polydipsia, polyuria Hematological/Lymphatic: Absent: easy bruising Allergic/Immunologic: Absent: urticaria, itchy eyes Medical,Surgical,& Family Hx - Medical History Cardio: History of: CHF, Hypertension, LA (2) Psychological: History of: Psychiatric/Substance Abuse Tx (alcohol abuse) Endocrine: History of: Diabetes Mellitus (NIDDM), Dyslipidemia Respiratory: History of: COPD, Obstructive Sleep Apnea, Respiratory Problems ( chf) Gastrointestinal: History of: Liver Problems - Surgical History Cardiac Surgeries: Sugical HX of: Cardiac Catheterization (X 2 STENTS) Orthopedic Surgeries: Surgical HX of;: Orthopedic Surgery - Family History Family History: Reports;: Family Diabetes, Family Heart Disease - Social History Smoking Status: Current every day smoker Frequency of Alcohol Use: Unknown Type of Drug Use: Unknown Exam Vital Signs: Vital Signs Temperature 97.6 F 05/29/17 23:30 Pulse Rate 60 05/29/17 23:30 Respiratory Rate 22 05/29/17 23:30 Blood Pressure 131/58 05/29/17 23:30 O2 Sat by Pulse Oximetry 95 05/29/17 23:30 - General General appearance: alert - Eye Eye exam: Present: PERRL, EOMI - ENT ENT exam: Present: normal exam - Neck Neck exam: Present: normal inspection, full ROM - Chest Chest inspection: Present: normal inspection - Respiratory Respiratory exam: Present: normal lung sounds bilaterally - Cardiovascular Cardiovascular exam: Present: regular rate, normal rhythm - Abdominal Exam Abdominal exam: Present: soft, normal bowel sounds - Extremities Exam Extremities exam: Present: normal inspection, full ROM - Back Exam Back exam: Present: normal inspection, full ROM - Neurological Exam Neurological exam: Present: alert, oriented X3, CN II-XII intact - Psychiatric Psychiatric exam: Present: normal affect, normal mood - Skin Skin exam: Present: warm, dry, intact Course Course Narrative: The case was discussed with the hospitalist who is aware of the patient's unexplained altered mental status and has agreed to admit the patient to the hospital for further evaluation and treatment. Disposition Clinical Impression: Altered mental status Disposition: Still a Patient Additional Instructions: The case was discussed with the hospitalist who is aware of the patient's unexplained altered mental status and has agreed to admit the patient to the hospital for further evaluation and treatment.
[2017-05-30] MEDS ORDERED: DEXTROSE 50% 25 GM/50 ML SYRINGE IV PRN (01:33)
[2017-05-30] MEDS ORDERED: GLUCAGON 1 MG VIAL IM PRN (01:33)
[2017-05-30] MEDS ORDERED: ONDANSETRON 4 MG/2 ML VIAL IV PRN (01:33)
[2017-05-30 01:35] LABS: VBG Base Excess -2.3 MEQ/L (0-4); VBG HCO3 21.9 MEQ/L (24-28); VBG Oxygen Saturation 93.5 %; VBG PCO2 35.7 MMHG (41-51); VBG PH 7.405; VBG PO2 70.4 MMHG (17-40)
[2017-05-30] MEDS ORDERED: LACTULOSE 160 GM/240 ML BOTTLE RECTAL PRN (01:44)
--- NOTE | 2017-05-30 02:11 | Hospitalist History & Physical ---
Assessment and Plan - Time spent with patient Time spent with patient: Greater than 30 minutes (1) Hepatic encephalopathy Status: Resolved Assessment and plan: Admit to hospitalist services. Consult GI. Ammonia 45, AlK Phos 165, Bili 1.7, Albumin 1.6. Hydrate with NS at 80 ml/hr. Albumin 25%, 50 grams IV BID, to be given before Lasix. Lasix 40 mg IV BID to be given after Albumin. Lactulose 200 grams per rectum Q 6 hours until mental status improves and he can tolerate PO administration; then 20 grams PO Q6 hours. Obtain CBC and CXR. Recheck CMP and ammonia in am. Current Visit: No (2) Altered mental status Status: Acute Assessment and plan: As above. Current Visit: Yes (3) HTN (hypertension) Status: Acute Assessment and plan: Patient was actually hypotensive on exam with SBPs in the 80s. Hold home medications for now. Continue to monitor; resume as indicated. Current Visit: No (4) Diabetes Status: Chronic Assessment and plan: Continue home medications. Diabetic diet. Accuchecks and SSI ACHS. Current Visit: No Qualifiers: Diabetes mellitus type: type 2 (5) DVT prophylaxis Status: Acute Assessment and plan: No CBC immediately available to look at platelets; previous values indicate some measure of thrombocytopenia. Creatinine at [facility] WNL. SCDs for now. CBC ordered for am. Current Visit: Yes History of Present Illness Chief complaint: Altered Mental Status History of present illness: Mr. Nascimento is a 71 year old male with a past medical history of IDDM, HTN, Liver cirrhosis, AL, CHF and sleep apnea who was transferred to the ED tonight from [facility] with complaints by his daughter of altered mental status. She reports that he was "okay" early in the day but by the evening, he was somnolent , difficult to arouse, and drooling. She reports that he takes Lactulose BID for liver cirrhosis, and may have missed one dose but usually takes it as prescribed. His work up in the ED at [facility] was significant for Ammonia 45, Albumin 1.6, Bilirubin 1.7, Alk Phos 165, and urobilinogen 4. CT head performed there was negative for any acute process. Urine drug screen and blood ETOH were negative. Currently, he is lying in bed sleeping heavily, daughter present at bedside to give history. Hospitalist services were consulted, and the patient will be admitted for further evaluation and treatment. Home medications were reviewed and reconciled. This patient is a full code. Home Medications Medication Instructions Recorded Confirmed Type Aspirin [Children's Aspirin] 81 mg PO DAILY 12/06/14 02/06/17 History Atorvastatin [Lipitor] 20 mg PO BEDTIME #30 tablet 12/11/14 02/06/17 Rx Clopidogrel [Plavix] 75 mg PO DAILY #30 tablet 12/11/14 02/06/17 Rx Lactulose Liquid [Chronulac] 30 gm PO TID #100 udcup 02/26/15 02/06/17 Rx Atropine 1 % Oph Soln [Isopto 1 drop LEFT EYE QID 02/06/17 02/06/17 History Atropine 1%] Calcium Citrate/Vitamin D3 1 each PO BID 02/06/17 02/06/17 History [Calcium Cit-Vit D 315-200 Tab] Carvedilol [Coreg] 12.5 mg PO BID W/MEALS 02/06/17 02/06/17 History Insulin Detemir [Levemir] 5 unit SUBCUT BEDTIME 02/06/17 02/06/17 History Tamsulosin [Flomax] 0.4 mg PO QPM 02/06/17 02/06/17 History Rifaximin [Xifaxan] 550 mg PO BID #60 tablet 02/16/17 Rx Allergies Allergy/AdvReac Type Severity Reaction Status Date / Time No Known Allergies Allergy Verified 02/06/17 11:35 Medical,Surgical,& Family Hx - Medical History Cardio: History of: CHF, Hypertension, AL (2) Psychological: History of: Psychiatric/Substance Abuse Tx (alcohol abuse) Endocrine: History of: Diabetes Mellitus (NIDDM), Dyslipidemia Respiratory: History of: COPD, Obstructive Sleep Apnea, Respiratory Problems ( chf) Gastrointestinal: History of: Liver Problems - Surgical History Cardiac Surgeries: Sugical HX of: Cardiac Catheterization (X 2 STENTS) Orthopedic Surgeries: Surgical HX of;: Orthopedic Surgery - Family History Family History: Reports;: Family Diabetes, Family Heart Disease - Social History Smoking Status: Current every day smoker Frequency of Alcohol Use: Unknown Type of Drug Use: Unknown ROS unobtainable: due to mental status, due to encephalopathy Exam - Constitutional Vitals: Period Temp Pulse Resp BP Sys/Stephens Pulse Ox Last 24 Hr 97.6 F-97.6 F 60-60 22-22 131-131/58-58 95-95 Exam: Constitutional System: Sleeping heavily; arouses slightly with mumbling to tactile and verbal stimulation. [No] acute distress. [No] tremulousness. Head: Normocephalic, atraumatic. Ears, Nose and Throat System: No pain or tenderness. No epistaxis or discharge Eyes System: Pupils equal, round, and reactive. Extraocular muscles intact. Neck: Supple, without adenopathy, [No] jugular venous distention. No thyromegaly , neck mass, or prior surgery apparent. Respiratory System: Diminished posterior sounds. Cardiovascular System: Heart with [regular] rate and rhythm. [Systolic] murmur. GI System: Abdomen [distened], [non]tender; pitting edema of abdomen noted. [ Normo]active bowel sounds present. Musculoskeletal System: BLEs with 4+ pitting edema. [Full] distal pulses. Normal capillary refill. Neurological System: Sleeping heavily; arouses slightly with mumbling to tactile and verbal stimulation. Psychiatric System: Sleeping heavily; arouses slightly with mumbling to tactile and verbal stimulation. Results - Labs Lab Results: I have reviewed the past 24 hour labs - EKG EKG shows: ventricular tachycardia - Diagnostic Findings Procedure: Chest x-ray: pending Quality Measures - VTE Contraindication to Pharmacological VTE Prophylaxis: Thrombocytopenia
[2017-05-30] MEDS ORDERED: FUROSEMIDE 40 MG/4 ML VIAL IV PRN (02:24)
[2017-05-30] MEDS: SODIUM CHLORIDE 0.9% 1,000 ML IV SCH (02:51)
[2017-05-30] MEDS: ALBUMIN 25% 50 GM in PREMIX 1 EACH IV SCH ×2 (02:56→21:26)
[2017-05-30] MEDS: FUROSEMIDE 40 MG/4 ML VIAL IV SCH ×2 (04:52→23:01)
[2017-05-30] MEDS: LACTULOSE 20 GM/30 ML UDCUP PO SCH ×5 (05:32→21:30)
[2017-05-30 05:45] LABS: Basophils % 0.8 % (0.0-0.8); Eosinophils # 0.2 10*3/uL (0.0-0.87); Eosinophils % 3.7 % (0.00-10.9); Hematocrit 26.1 VOL% (42.0-52.0); Hemoglobin 9.4 GM/DL (14.0-18.0); Immature Granulocytes % 0.2 %; Immature Granulocytes Absolute 0.01 #; Lymphocytes # 2.1 10*3/uL (1.4-4.0); Lymphocytes % 39.8 % (21.2-54.2); Mean Corpuscular Hemoglobin 35 PG (27-34); Mean Corpuscular Volume 96.3 FL (87-102); Mean Platelet Volume 9.5 FL (9.6-12.0); Monocytes # 0.8 10*3/uL (0.11-0.8); Monocytes % 14.4 % (1.7-12.7); Neutrophils # 2.1 10*3/uL (1.4-7.4); Neutrophils % 41.1 % (38.7-73.9); Platelet Count 102 T/CUMM (130-400); Red Blood Count 2.71 MC/CUMM (3.8-5.5); Red Cell Distribution Width 14.4 % (9.3-17.3); White Blood Count 5.2 T/CUMM (4-12)
[2017-05-30 06:14] LABS: Albumin 2.2 G/DL (3.4-5.0); Bilirubin,Total 1.5 MG/DL (0.2-1.0); Calcium 8.7 MG/DL (8.5-10.1); Osmolality,Calculated 276.5 MOS/KG (273-304)
--- NOTE | 2017-05-30 06:57 | XRay Report ---
XR chest 1V portable Indication: Altered mental status Comparison: To February 2017 Findings: The heart and mediastinum are normal in size and configuration. The pulmonary vascularity is normal in caliber. Left lower lung linear density and volume loss are present, similar findings were present on previous exams. No other pulmonary infiltrates, effusions, pneumothorax or other abnormality is demonstrated. Impression: No acute findings or significant changes. PROCEDURE INTERPRETED AT [facility] DEPARTMENT OF RADIOLOGY Final Report Signed by: Dr. Robe Mari
[2017-05-30] MEDS: LEVOTHYROXINE 50 MCG TABLET PO SCH (07:05)
[2017-05-30] MEDS: INSULIN LISPRO 100 UNIT/ML SUBCUT SCH ×7 (07:49→21:26)
[2017-05-30] MEDS: MULTIVITAMIN (BEROCCA) TABLET PO SCH (08:08)
[2017-05-30] MEDS: RIFAXIMIN 550 MG TABLET PO SCH ×2 (08:08→21:18)
[2017-05-30] MEDS: PANTOPRAZOLE 40 MG TABLET PO SCH (08:08)
[2017-05-30] MEDS: hydroCHLOROthiazide 25 MG TABLET PO SCH (08:08)
[2017-05-30] MEDS: CLOPIDOGREL 75 MG TABLET PO SCH (08:08)
[2017-05-30] MEDS: ATROPINE 1 % OPH SOLN 5 ML BOTTLE LEFT EYE SCH ×4 (08:08→21:29)
[2017-05-30] MEDS: ASPIRIN CHEW 81 MG TABLET PO SCH (08:08)
[2017-05-30] MEDS: CALCIUM (CITRATE)/VITAMIN D 200 MG-125 UNIT TABLET PO SCH ×2 (08:08→21:18)
[2017-05-30] MEDS: THIAMINE 100 MG TABLET PO SCH (08:08)
--- NOTE | 2017-05-30 09:12 | Gastrointestinal Consult Note ---
Assessment and Plan (1) Altered mental status Status: Acute Assessment and plan: 05/30-admitted status with history of cirrhosis with elevated ammonia levels noted as below. Long-term history of alcohol use with reported cessation months ago. Reported compliance of medications by daughter on admission. Mildly elevated bilirubin and alkaline phosphatase for ammonia at 64 today. Lactulose, Xifaxan initiated. Aldactone 50 mg daily, Lasix 40 mg twice daily noted. Also noted albumin twice daily. Continue to monitor at this time. Plan an addendum to followed by Dr. Dorsey. Current Visit: Yes History of Present Illness Chief complaint: Altered mental status History of present illness: Mr. Nascimento is a 71 year old male who was admitted to the hospital last night with reports of altered mental status. Patient is unable to provide historical information at this time therefore information obtained from chart review. Patient has a prior history of diabetes mellitus, hypertension, liver cirrhosis , ID, CHF. He was brought in by his daughter on last night after being evaluated [facility] emergency room with reports of patient sleeping all day and being difficult to arouse. Patient does have a prior history of cirrhosis and he is taking lactulose twice a day for the S. At time of admission, patient's daughter states he is compliant with his medication although he might have missed maybe 1 dose. He was noted as well on admission to have an ammonia level of 45 however this is risen today to 64. He has a mild elevation in his bilirubin at 1.5 as well as alkaline phosphatase at 132. He was noted to be recently hospitalized in March of this year with altered mental status as well as aggression. He is noted at that time to have reportedly been followed by a liver specialist at [facility]. He also was noted to have a history of alcohol use however reported to no longer be drinking as of that time. He is noted to be on Plavix with a history of heart catheterization with stents 2 however uncertain as to when these were placed. Since February, he is noted to have a 10 kg increase in his weight documented. There is no prior history of paracentesis in the past. Last admission in March of this year with ultrasound findings consistent with cirrhosis with questionable portal vein thrombosis at that time. He did have a CT of the head at [facility] with no acute process is found. Patient is difficult to arouse and becomes agitated and unable to answer questions during exam. Home Medications Medication Instructions Recorded Confirmed Type Carvedilol [Coreg] 3.125 mg PO BID W/MEALS 02/06/17 05/30/17 History Insulin Aspart [NovoLOG] 3 unit SUBCUT TID W/MEALS 05/30/17 05/30/17 History Latanoprost [Latanoprost 0.005 % 1 drop LEFT EYE BEDTIME 05/30/17 05/30/17 History Oph Soln] Levothyroxine Tab [Synthroid Tab] 25 mcg PO DAILY@0700 05/30/17 05/30/17 History Pantoprazole Tab [Protonix Tab] 40 mg PO DAILY 05/30/17 05/30/17 History Spironolactone [Aldactone] 50 mg PO BEDTIME 05/30/17 05/30/17 History Thiamine Tab [Vitamin B1 Tab] 100 mg PO DAILY 05/30/17 05/30/17 History hydroCHLOROthiazide 25 mg PO DAILY 05/30/17 05/30/17 History [Hydrochlorothiazide] Allergies Allergy/AdvReac Type Severity Reaction Status Date / Time No Known Allergies Allergy Verified 02/06/17 11:35 Medical,Surgical,& Family Hx - Medical History Cardio: History of: CHF, Hypertension, ID (2) Psychological: History of: Psychiatric/Substance Abuse Tx (alcohol abuse) Endocrine: History of: Diabetes Mellitus (NIDDM), Dyslipidemia Respiratory: History of: COPD, Obstructive Sleep Apnea, Respiratory Problems ( chf) Gastrointestinal: History of: Liver Problems - Surgical History Cardiac Surgeries: Sugical HX of: Cardiac Catheterization (X 2 STENTS) Orthopedic Surgeries: Surgical HX of;: Orthopedic Surgery - Family History Family History: Reports;: Family Diabetes, Family Heart Disease - Social History Smoking Status: Current every day smoker Frequency of Alcohol Use: Unknown Type of Drug Use: Unknown ROS unobtainable: due to mental status Exam - Constitutional Vitals: Period Temp Pulse Resp BP Sys/Stephens Pulse Ox Last 24 Hr 96.5 F-97.6 F 57-94 18-22 131-150/58-72 95-100 General appearance: no acute distress, over weight - Head Head exam: Present: normal inspection, normocephalic - Eye Eye exam: Present: other (Lids and conjunctive are unremarkable). Absent: scleral icterus - ENT ENT exam: Present: normal exam, normal oropharynx - Neck Neck exam: Present: normal inspection - Respiratory Respiratory exam: Present: clear to auscultation bilaterally. Absent: rales, rhonchi, wheezes - Cardiovascular Cardiovascular exam: Present: regular rate and rhythm. Absent: diastolic murmur , JVD, systolic murmur - GI/Abdominal GI/Abdominal exam: Present: normal bowel sounds, soft. Absent: ascites, distended, mass, organomegaly, tenderness - Extremities Exam Extremities exam: Present: normal inspection, full ROM - Back Exam Back exam: Present: normal inspection - Neurological Exam Neurological exam: Present: alert, altered - Psychiatric Psychiatric exam: Present: other - Skin Skin exam: Present: normal color, warm, dry Results - Labs CBC & BMP: 05/30/17 05:22 05/30/17 05:22 Lab Results: I have reviewed the past 24 hour labs Quality Measures - VTE Contraindication to Pharmacological VTE Prophylaxis: Thrombocytopenia
--- NOTE | 2017-05-30 10:48 | Hospitalist Progress Note ---
Assessment and Plan - Time spent with patient Time spent with patient: Greater than 30 minutes (1) clinical cirrhosis Status: Acute Assessment and plan: Continue lactulose and rifaximin. Monitor ammonia levels. Started on albumin and Lasix, he does not appear fluid overloaded, will monitor and likely discontinue tomorrow. Monitor mental status. Continue Protonix Continue antihypertensive Continue other supportive care Current Visit: No (2) Chronic alcohol abuse Status: Chronic Current Visit: No (3) Altered mental status Status: Acute Current Visit: Yes (4) Hepatomegaly Status: Acute Current Visit: No (5) Hepatic encephalopathy Status: Resolved Current Visit: No (6) HTN (hypertension) Status: Acute Current Visit: No (7) CKD (chronic kidney disease) stage 2, GFR 60-89 ml/min Status: Acute Current Visit: No Hospitalist: Subjective Interval history: 71-year-old man with history of alcohol abuse and liver cirrhosis who was admitted overnight with decreased mental status and suspected to be due to hepatic encephalopathy due to elevated ammonia levels and no signs of infection. I appropriately started on lactulose and rifaximin on admission. I am not sure what his baseline mental status was but he was awake and to give appropriate but short one-word answers. Being evaluated by gastroenterology, see final recommendations. No fever Has remained hemodynamically stable. Exam - Constitutional Vitals: Period Temp Pulse Resp BP Sys/Stephens Pulse Ox Last 24 Hr 96.5 F-97.6 F 57-94 18-22 131-150/58-72 95-100 Exam: Constitutional System: Sleeping heavily; arouses slightly with mumbling to tactile and verbal stimulation. [No] acute distress. [No] tremulousness. Head: Normocephalic, atraumatic. Ears, Nose and Throat System: No pain or tenderness. No epistaxis or discharge Eyes System: Pupils equal, round, and reactive. Extraocular muscles intact. Neck: Supple, without adenopathy, [No] jugular venous distention. No thyromegaly , neck mass, or prior surgery apparent. Respiratory System: Diminished posterior sounds. Cardiovascular System: Heart with [regular] rate and rhythm. [Systolic] murmur. GI System: Abdomen [distened], [non]tender; pitting edema of abdomen noted. [ Normo]active bowel sounds present. Musculoskeletal System: BLEs with 4+ pitting edema. [Full] distal pulses. Normal capillary refill. Neurological System: Sleeping heavily; arouses slightly with mumbling to tactile and verbal stimulation. Psychiatric System: Sleeping heavily; arouses slightly with mumbling to tactile and verbal stimulation. Results - Labs CBC & BMP: 05/30/17 05:22 05/30/17 05:22 Lab Results: I have reviewed the past 24 hour labs Quality Measures - VTE Contraindication to Pharmacological VTE Prophylaxis: Thrombocytopenia
[2017-05-30] MEDS ORDERED: SODIUM CHLORIDE 0.9% 50 ML IV ONE (14:56)
[2017-05-30] MEDS: cefTRIAXone 1,000 MG VIAL IM SCH (14:57)
[2017-05-30] MEDS: TAMSULOSIN 0.4 MG CAPSULE PO SCH (21:18)
[2017-05-30] MEDS: SPIRONOLACTONE 50 MG TABLET PO SCH (21:18)
[2017-05-30] MEDS: INSULIN GLARGINE 100 UNIT/ML SUBCUT SCH (21:25)
[2017-05-30] MEDS: LATANOPROST 0.005% OPH SOLN 2.5 ML BOTTLE LEFT EYE SCH (21:29)
[2017-05-31] MEDS: LACTULOSE 20 GM/30 ML UDCUP PO SCH ×6 (01:53→21:43)
[2017-05-31] MEDS: LEVOTHYROXINE 50 MCG TABLET PO SCH (06:26)
[2017-05-31] MEDS: INSULIN LISPRO 100 UNIT/ML SUBCUT SCH ×7 (07:39→21:44)
[2017-05-31] MEDS: ALBUMIN 25% 50 GM in PREMIX 1 EACH IV SCH ×2 (08:09→21:37)
[2017-05-31] MEDS: ASPIRIN CHEW 81 MG TABLET PO SCH (08:09)
[2017-05-31] MEDS: RIFAXIMIN 550 MG TABLET PO SCH ×2 (08:10→21:43)
[2017-05-31] MEDS: CALCIUM (CITRATE)/VITAMIN D 200 MG-125 UNIT TABLET PO SCH ×2 (08:10→21:43)
[2017-05-31] MEDS: hydroCHLOROthiazide 25 MG TABLET PO SCH (08:10)
[2017-05-31] MEDS: THIAMINE 100 MG TABLET PO SCH (08:10)
[2017-05-31] MEDS: ATROPINE 1 % OPH SOLN 5 ML BOTTLE LEFT EYE SCH ×4 (08:10→21:43)
[2017-05-31] MEDS: PANTOPRAZOLE 40 MG TABLET PO SCH (08:10)
[2017-05-31] MEDS: MULTIVITAMIN (BEROCCA) TABLET PO SCH (08:10)
[2017-05-31] MEDS: FUROSEMIDE 40 MG/4 ML VIAL IV SCH ×2 (10:32→23:50)
--- NOTE | 2017-05-31 11:22 | Gastrointestinal Progress Note ---
Assessment and Plan - Time spent with patient Time spent with patient: Greater than 30 minutes (1) Hepatic encephalopathy Status: Resolved Current Visit: No (2) clinical cirrhosis Status: Acute Current Visit: No (3) Anemia Status: Acute Current Visit: Yes (4) Other specified counseling Status: Acute Current Visit: Yes Exam (Progress Note) - Constitutional Vitals: Period Temp Pulse Resp BP Sys/Stephens Pulse Ox Last 24 Hr 97.2 F-99.1 F 61-78 18-20 125-152/61-77 93-97 Results - Labs CBC & BMP: 05/30/17 05:22 05/30/17 05:22 Note Addendum: PLEASE NOTE -- automatic citation of patient information is unavoidable in this electronic note. I have made a reasonable effort to review the information cited , but it is not a part of my evaluation, impression, or recommendation unless specifically discussed in the dictated text that follows. As well, voice recognition software was used in the creation of this clinical note. Reasonable effort was made to identify and correct gross errors. Despite proofreading, errors in clock assembler may be present, including nonsense verbiage at times. If you encounter such an error, please contact me at for discussion and correction. -- Augustin Chief complaint: altered mental status Subjective: the patient is a 71-year-old male seen for follow-up of hepatic encephalopathy in the setting of known diagnosis of alcoholic cirrhosis. The patient was admitted by transfer from [facility] yesterday and was started on empiric therapy against the possibility of spontaneous bacterial peritonitis. He was also treated specifically for hepatic encephalopathy with Rifaximin and lactulose. With this he has enjoyed some improvement in terms of his mental status but remains somnolent and somewhat confused. The nursing staff reports that he is able to follow commands, take medications, and tolerate food. They also reports he does better when his family is with him and can speak to him in [place]. He reports no pain at present. Medications: albumin, aspirin, Rocephin, Lasix, hydrochlorothiazide, Lantus, Synthroid, Zofran, Protonix, Rifaximin, Aldactone, Flomax, thiamine, multivitamin complex, normal saline infusion Review of Symptoms: 12 point review of symptoms was negative except as noted above Physical examination: Vital Signs: Current vital signs reviewed. General Appearance: lying in bed. Apparently comfortable. Sleeping. Arousable. Head: Normocephalic. Eyes: no scleral icterus. No scleral injection. 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 Oral Cavity: Odor of breath was normal. No drooling was observed. Lips showed no abnormalities. Lungs: Respiration rhythm and depth was normal. Cardiovascular: Heart rate and rhythm were normal. Abdomen: abdomen was equivically distended. Abdominal auscultation revealed no abnormalities. Ascites was discovered. Abdominal palpation revealed no tenderness and no hepatosplenomegaly. Musculoskeletal System: musculoskeletal system was grossly normal. Neurological: patient was somnolent but arousable. Speech was difficult to understand. No coordination/cerebellum abnormalities were noted. Asterix is was present. Skin: Gen. appearance was normal. Color and pigmentation were normal. No skin lesions were appreciated. Laboratory: yesterday hemoglobin 9.4, hematocrit 26.1, platelets 102, ALT 22, AST 35, total bilirubin 1.5, alkaline phosphatase 132, albumin 2.2, total protein 6.0, ammonia 64, no new labs today Radiology: reviewed with no pertinent changes noted. Impressions: #1. Hepatic encephalopathy -- this is at least grade II encephalopathy but the patient is improving per report. I recommend continued lactulose and Rifaximin. I also agree with Dr. Dorsey's recommendation for radiological he guided paracentesis with evaluation against Tony bacterial peritonitis. I recommend continued empirical therapy same for now #2. Alcoholic cirrhosis -- it is unclear from the record from speaking with the patient whether he continues alcohol use. If so, voice, the most important intervention. He will need outpatient follow-up for management of cirrhosis which should include direct therapy, endoscopic screening against esophageal varices if not already accomplished, vaccinations against viral hepatitis, flu, and pneumonia, and regular clinical visits. #3. Anemia -- patient has not shown over gastrointestinal bleeding but certainly is at risk for same. I recommend monitoring with transfusion as indicated. Urgent endoscopy is not indicated at present would need to be considered if overt bleeding develops. #4. Other specified counseling -- Patient seen for greater than 30 minutes. Greater than 50% of this time was spent counseling regarding differential diagnosis, likely diagnosis,, diagnostic and therapeutic options, risks, benefits, and alternatives to procedures and medications, informed consent, and plan of care generally. Patient has expressed understanding and wishes to proceed. Recommendations: -- continued lactulose and Rifaximin -- continued. Therapy against spontaneous bacterial peritonitis -- radiologic guided paracentesis with culture, history, and cellularity evaluation -- continued volume management -- continued monitoring of blood counts with transfusion as indicated -- alcohol abstinence, now and forever -- endoscopic evaluation with timing based on clinical progress, likely outpatient -- outpatient follow-up for management of cirrhosis -- we will continue to follow with you
--- NOTE | 2017-05-31 12:16 | Hospitalist Progress Note ---
Assessment and Plan - Time spent with patient Time spent with patient: Greater than 30 minutes (1) clinical cirrhosis Status: Acute Assessment and plan: Continue lactulose and rifaximin. Repeat morning ammonia levels. Monitor mental status. Continue Protonix Continue antihypertensive Continue other supportive care, gastroenterology follow-up. If mental status returned to baseline, may be able to go on Friday. Current Visit: No (2) Chronic alcohol abuse Status: Chronic Current Visit: No (3) Altered mental status Status: Acute Current Visit: Yes (4) Hepatomegaly Status: Acute Current Visit: No (5) HTN (hypertension) Status: Acute Current Visit: No (6) CKD (chronic kidney disease) stage 2, GFR 60-89 ml/min Status: Acute Current Visit: No Hospitalist: Subjective Interval history: He seems to have responded to lactulose, mental status nearing baseline. He has no new complaints today. No repeat labs Spoke with family member at bedside Exam - Constitutional Vitals: Period Temp Pulse Resp BP Sys/Stephens Pulse Ox Last 24 Hr 97.2 F-99.1 F 65-78 18-20 125-152/61-77 93-95 Exam: Constitutional System: S more awake today; arouses slightly with appropriate answer when prompted [No] acute distress. Head: Normocephalic, atraumatic. Ears, Nose and Throat System: No pain or tenderness. No epistaxis or discharge Eyes System: Pupils equal, round, and reactive. Extraocular muscles intact. Neck: Supple, without adenopathy, [No] jugular venous distention. No thyromegaly , neck mass, or prior surgery apparent. Respiratory System: Diminished posterior sounds. Cardiovascular System: Heart with [regular] rate and rhythm. [Systolic] murmur. GI System: Abdomen [distened], [non]tender; pitting edema of abdomen noted. [ Normo]active bowel sounds present. Musculoskeletal System: BLEs with 4+ pitting edema. [Full] distal pulses. Normal capillary refill. Neurological System: Sleeping heavily; arouses slightly with mumbling to tactile and verbal stimulation. Psychiatric System: More awake, verbal response. Results - Labs CBC & BMP: 05/30/17 05:22 05/30/17 05:22 Lab Results: I have reviewed the past 24 hour labs Quality Measures - VTE Contraindication to Pharmacological VTE Prophylaxis: Thrombocytopenia
[2017-05-31] MEDS ORDERED: SODIUM CHLORIDE 0.9% 50 ML IV ONE (14:07)
[2017-05-31] MEDS: cefTRIAXone 1,000 MG VIAL IM SCH (14:09)
[2017-05-31] MEDS: SODIUM CHLORIDE 0.9% 1,000 ML IV SCH (21:39)
[2017-05-31] MEDS: INSULIN GLARGINE 100 UNIT/ML SUBCUT SCH (21:42)
[2017-05-31] MEDS: SPIRONOLACTONE 50 MG TABLET PO SCH (21:43)
[2017-05-31] MEDS: LATANOPROST 0.005% OPH SOLN 2.5 ML BOTTLE LEFT EYE SCH (21:43)
[2017-05-31] MEDS: TAMSULOSIN 0.4 MG CAPSULE PO SCH (21:43)
[2017-06-01] MEDS: LACTULOSE 20 GM/30 ML UDCUP PO SCH ×6 (02:45→21:25)
[2017-06-01] MEDS: LEVOTHYROXINE 50 MCG TABLET PO SCH (06:44)
[2017-06-01 06:53] LABS: Basophils % 0.4 % (0.0-0.8); Eosinophils # 0.2 10*3/uL (0.0-0.87); Hematocrit 25.8 VOL% (42.0-52.0); Hemoglobin 9.5 GM/DL (14.0-18.0); Immature Granulocytes % 0.3 %; Immature Granulocytes Absolute 0.02 #; Lymphocytes # 1.8 10*3/uL (1.4-4.0); Lymphocytes % 27.5 % (21.2-54.2); Mean Corpuscular HGB Conc 36.8 GM/DL (32-36); Mean Corpuscular Hemoglobin 35 PG (27-34); Mean Corpuscular Volume 95.9 FL (87-102); Mean Platelet Volume 9.6 FL (9.6-12.0); Monocytes # 0.9 10*3/uL (0.11-0.8); Monocytes % 13.7 % (1.7-12.7); Neutrophils # 3.7 10*3/uL (1.4-7.4); Neutrophils % 55.1 % (38.7-73.9); Platelet Count 100 T/CUMM (130-400); Red Blood Count 2.69 MC/CUMM (3.8-5.5); Red Cell Distribution Width 14.4 % (9.3-17.3); White Blood Count 6.7 T/CUMM (4-12)
[2017-06-01 07:20] LABS: Albumin 2.5 G/DL (3.4-5.0); Calcium 8.5 MG/DL (8.5-10.1); Osmolality,Calculated 277.4 MOS/KG (273-304); Potassium 3.2 MMOL/L (3.5-5.1); Total Protein 6.3 G/DL (6.4-8.3)
[2017-06-01 07:25] LABS: Burr Cells Slight; Hypochromasia 1+; Ovalocytes Slight; Platelet Estimate Decreased
[2017-06-01] MEDS: INSULIN LISPRO 100 UNIT/ML SUBCUT SCH ×7 (07:52→21:26)
[2017-06-01] MEDS: ALBUMIN 25% 50 GM in PREMIX 1 EACH IV SCH ×2 (08:06→21:26)
[2017-06-01] MEDS: hydroCHLOROthiazide 25 MG TABLET PO SCH (08:07)
[2017-06-01] MEDS: ASPIRIN CHEW 81 MG TABLET PO SCH (08:07)
[2017-06-01] MEDS: MULTIVITAMIN (BEROCCA) TABLET PO SCH (08:07)
[2017-06-01] MEDS: SODIUM CHLORIDE 0.9% 1,000 ML IV SCH (08:07)
[2017-06-01] MEDS: ATROPINE 1 % OPH SOLN 5 ML BOTTLE LEFT EYE SCH ×4 (08:07→21:25)
[2017-06-01] MEDS: CALCIUM (CITRATE)/VITAMIN D 200 MG-125 UNIT TABLET PO SCH ×2 (08:07→21:25)
[2017-06-01] MEDS: RIFAXIMIN 550 MG TABLET PO SCH ×2 (08:07→21:25)
[2017-06-01] MEDS: THIAMINE 100 MG TABLET PO SCH (08:07)
[2017-06-01] MEDS: PANTOPRAZOLE 40 MG TABLET PO SCH (08:07)
[2017-06-01] MEDS: FUROSEMIDE 40 MG/4 ML VIAL IV SCH ×2 (10:27→23:01)
--- NOTE | 2017-06-01 11:52 | Hospitalist Progress Note ---
Assessment and Plan - Time spent with patient Time spent with patient: Greater than 30 minutes (1) clinical cirrhosis Status: Acute Assessment and plan: Continue lactulose and rifaximin. Monitor mental status. Continue Protonix Continue antihypertensive Supplement potassium. I agree with paracentesis as recommended by gastroenterology, keep empiric treatment for possible SBP Continue other supportive care, gastroenterology follow-up. Current Visit: No (2) Chronic alcohol abuse Status: Chronic Current Visit: No (3) Altered mental status Status: Acute Current Visit: Yes (4) Hepatomegaly Status: Acute Current Visit: No (5) HTN (hypertension) Status: Acute Current Visit: No (6) CKD (chronic kidney disease) stage 2, GFR 60-89 ml/min Status: Acute Current Visit: No Hospitalist: Subjective Interval history: I met with family members at bedside today, his mental status has improved from his admission state though he remains drowsy and sleeping most of the time. Ammonia levels however trended up despite treatment with lactulose and rifaximin. At this point we will go more with his clinical improvement. No fever Gastroenterology have recommended paracentesis for possible SBP. Exam - Constitutional Vitals: Period Temp Pulse Resp BP Sys/Stephens Pulse Ox Last 24 Hr 97.8 F-99.4 F 68-76 18-22 142-192/71-88 93-96 Exam: Constitutional System: Sleeping; arouses slowly [No] acute distress. Head: Normocephalic, atraumatic. Ears, Nose and Throat System: No pain or tenderness. No epistaxis or discharge Eyes System: Pupils equal, round, and reactive. Extraocular muscles intact. Neck: Supple, without adenopathy, [No] jugular venous distention. No thyromegaly , neck mass, or prior surgery apparent. Respiratory System: Diminished posterior sounds. Cardiovascular System: Heart with [regular] rate and rhythm. [Systolic] murmur. GI System: Abdomen [distened], appears to have mild tenderness with deep palpation; pitting edema of abdomen noted. [Normo]active bowel sounds present. Musculoskeletal System: BLEs with 4+ pitting edema. [Full] distal pulses. Normal capillary refill. Neurological System: Sleeping heavily; arouses slightly with mumbling to tactile and verbal stimulation. Psychiatric System: More awake, verbal response. Results - Labs CBC & BMP: 06/01/17 05:20 06/01/17 05:20 Lab Results: I have reviewed the past 24 hour labs Quality Measures - VTE Contraindication to Pharmacological VTE Prophylaxis: Thrombocytopenia
--- NOTE | 2017-06-01 12:32 | Gastrointestinal Progress Note ---
Assessment and Plan (1) Hepatic encephalopathy Status: Resolved Current Visit: No (2) clinical cirrhosis Status: Acute Current Visit: No (3) Anemia Status: Acute Current Visit: Yes (4) Other specified counseling Status: Acute Current Visit: Yes Exam (Progress Note) - Constitutional Vitals: Period Temp Pulse Resp BP Sys/Stephens Pulse Ox Last 24 Hr 97.8 F-99.4 F 67-75 18-22 142-192/71-88 93-96 Results - Labs CBC & BMP: 06/01/17 05:20 06/01/17 05:20 Note Addendum: PLEASE NOTE -- automatic citation of patient information is unavoidable in this electronic note. I have made a reasonable effort to review the information cited , but it is not a part of my evaluation, impression, or recommendation unless specifically discussed in the dictated text that follows. As well, voice recognition software was used in the creation of this clinical note. Reasonable effort was made to identify and correct gross errors. Despite proofreading, errors in fire department battalion chief may be present, including nonsense verbiage at times. If you encounter such an error, please contact me at for discussion and correction. -- Augustin Chief complaint: altered mental status Subjective: the patient is a 71-year-old male seen for follow-up of hepatic encephalopathy in the setting of known diagnosis of alcoholic cirrhosis. He remains somnolent and somewhat confused. He is able to answer questions appropriately. He is also able to take food per staff. Laboratory work is about the same. He has remained afebrile. Medications: albumin, aspirin, Rocephin, Lasix, hydrochlorothiazide, Lantus, Synthroid, Zofran, Protonix, Rifaximin, Aldactone, Flomax, thiamine, multivitamin complex, normal saline infusion Review of Symptoms: 12 point review of symptoms was negative except as noted above Physical examination: Vital Signs: Current vital signs reviewed. General Appearance: lying in bed. Apparently comfortable. Sleeping. Arousable. Head: Normocephalic. Eyes: no scleral icterus. No scleral injection. 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 Oral Cavity: Odor of breath was normal. No drooling was observed. Lips showed no abnormalities. Lungs: Respiration rhythm and depth was normal. Cardiovascular: Heart rate and rhythm were normal. Abdomen: abdomen was equivically distended. Abdominal auscultation revealed no abnormalities. Ascites was discovered. Abdominal palpation revealed no tenderness and no hepatosplenomegaly. Musculoskeletal System: musculoskeletal system was grossly normal. Neurological: patient was somnolent but arousable. Speech was difficult to understand. No coordination/cerebellum abnormalities were noted. Asterix is was present. Skin: Gen. appearance was normal. Color and pigmentation were normal. No skin lesions were appreciated. Laboratory: white blood count 6.7, hemoglobin 9.5, hematocrit 25.8, platelets 100, ALT 24, AST 36, total bilirubin 2.0, alkaline phosphatase 154, among 81, total protein 6.3, albumin 2.5 Radiology: reviewed with no pertinent changes noted. Impressions: #1. Hepatic encephalopathy -- he continues with grade I/II encephalopathy. I recommend continued lactulose and Rifaximin. I also agree with Dr. Dorsey's recommendation for radiological he guided paracentesis with evaluation against spontaneous bacterial peritonitis. I recommend continued empiric antibiotic therapy. #2. Alcoholic cirrhosis -- I recommend alcohol abstinence now and forever. He will need outpatient follow-up for management of cirrhosis which should include endoscopic screening against esophageal varices if not already accomplished, vaccinations against viral hepatitis, flu, and pneumonia, and regular clinical visits. #3. Anemia -- patient has not shown over gastrointestinal bleeding but remains at risk for same. I recommend monitoring with transfusion as indicated. Urgent endoscopy is not indicated at present would need to be considered if overt bleeding develops. #4. Other specified counseling -- Patient seen for greater than 30 minutes. Greater than 50% of this time was spent counseling regarding differential diagnosis, likely diagnosis,, diagnostic and therapeutic options, risks, benefits, and alternatives to procedures and medications, informed consent, and plan of care generally. Patient has expressed understanding and wishes to proceed. Recommendations: -- continued lactulose and Rifaximin -- continued emperic therapy against spontaneous bacterial peritonitis -- radiologic guided paracentesis with culture, chemistry, and cellularity evaluation -- continued volume management -- continued monitoring of blood counts with transfusion as indicated -- alcohol abstinence, now and forever -- endoscopic evaluation with timing based on clinical progress, likely outpatient -- outpatient follow-up for management of cirrhosis -- we will continue to follow with you
[2017-06-01] MEDS: cefTRIAXone 1,000 MG VIAL IM SCH (14:52)
[2017-06-01] MEDS: TAMSULOSIN 0.4 MG CAPSULE PO SCH (21:25)
[2017-06-01] MEDS: LATANOPROST 0.005% OPH SOLN 2.5 ML BOTTLE LEFT EYE SCH (21:25)
[2017-06-01] MEDS: SPIRONOLACTONE 50 MG TABLET PO SCH (21:25)
[2017-06-01] MEDS: INSULIN GLARGINE 100 UNIT/ML SUBCUT SCH (21:26)
[2017-06-02] MEDS: LACTULOSE 20 GM/30 ML UDCUP PO SCH ×6 (02:23→21:05)
[2017-06-02] MEDS: SODIUM CHLORIDE 0.9% 1,000 ML IV SCH ×3 (06:02→20:56)
[2017-06-02] MEDS: LEVOTHYROXINE 50 MCG TABLET PO SCH (06:06)
[2017-06-02] MEDS: INSULIN LISPRO 100 UNIT/ML SUBCUT SCH ×7 (09:22→21:05)
[2017-06-02] MEDS: MULTIVITAMIN (BEROCCA) TABLET PO SCH (09:23)
[2017-06-02] MEDS: RIFAXIMIN 550 MG TABLET PO SCH ×2 (09:24→20:52)
[2017-06-02] MEDS: PANTOPRAZOLE 40 MG TABLET PO SCH (09:24)
[2017-06-02] MEDS: THIAMINE 100 MG TABLET PO SCH (09:24)
[2017-06-02] MEDS: CALCIUM (CITRATE)/VITAMIN D 200 MG-125 UNIT TABLET PO SCH ×2 (09:24→20:52)
[2017-06-02] MEDS: ASPIRIN CHEW 81 MG TABLET PO SCH (09:25)
[2017-06-02] MEDS: ALBUMIN 25% 50 GM in PREMIX 1 EACH IV SCH ×2 (09:26→20:52)
[2017-06-02] MEDS: ATROPINE 1 % OPH SOLN 5 ML BOTTLE LEFT EYE SCH ×4 (09:27→20:52)
[2017-06-02] MEDS: hydroCHLOROthiazide 25 MG TABLET PO SCH (09:27)
--- NOTE | 2017-06-02 09:55 | Gastrointestinal Progress Note ---
Assessment and Plan (1) Altered mental status Status: Acute Assessment and plan: 06/02-patient more alert, ammonia 81. Patient had one bowel movement daily lactulose. No daily weights noted. Consult social media community manager for possible placement at discharge per family request. Low-grade fever noted last night. Plan an addendum to followed by Dr. Dorsey 05/30-admitted status with history of cirrhosis with elevated ammonia levels noted as below. Long-term history of alcohol use with reported cessation months ago. Reported compliance of medications by daughter on admission. Mildly elevated bilirubin and alkaline phosphatase for ammonia at 64 today. Lactulose, Xifaxan initiated. Aldactone 50 mg daily, Lasix 40 mg twice daily noted. Also noted albumin twice daily. Continue to monitor at this time. Plan an addendum to followed by Dr. Dorsey. Current Visit: Yes Gastroenterology - PN: Subj Interval history: CC: Cirrhosis/encephalopathy Patient is seen, more awake and alert today with family at bedside. States he rested well last night. He seems to be fairly well oriented as well today. Ammonia levels are noted to be elevated at 81 bowel movement a day on lactulose every 4 hours. He denies any abdominal pain, nausea vomiting at this time. His bilirubin is mildly elevated at 2. No daily weights are noted at this time. Family is requesting [facility] [place] [facility] discharge stated that he can no longer care for him at home. We will place social work consult to discuss options with discharge planning. He is continued on Rocephin at this time. Abdomen is soft, nontender, ascites noted. ROS: Denies shortness of breath chest pain Exam (Progress Note) - Constitutional Vitals: Period Temp Pulse Resp BP Sys/Stephens Pulse Ox Last 24 Hr 98.0 F-100.0 F 66-79 18-20 131-154/45-94 91-94 General appearance: normal weight, no acute distress - Head Head exam: Present: normal inspection, normocephalic - Eye Eye exam: Present: other (Lids and conjunctivae are unremarkable). Absent: scleral icterus - ENT ENT exam: Present: normal exam, normal oropharynx - Neck Neck exam: Present: normal inspection - Respiratory Respiratory exam: Present: clear to auscultation bilaterally. Absent: rales, rhonchi, wheezes - Cardiovascular Cardiovascular exam: Present: regular rate and rhythm. Absent: diastolic murmur , JVD, systolic murmur - GI/Abdominal GI/Abdominal exam: Present: normal bowel sounds, ascites, soft. Absent: distended, mass, organomegaly, tenderness - Extremities Exam Extremities exam: Present: normal inspection, full ROM - Back Exam Back exam: Present: normal inspection - Neurological Exam Neurological exam: Present: alert, oriented X3 - Psychiatric Psychiatric exam: Present: normal affect, normal mood - Skin Skin exam: Present: normal color, warm, dry Results - Labs CBC & BMP: 06/01/17 05:20 06/01/17 05:20 Lab Results: I have reviewed the past 24 hour labs
[2017-06-02] MEDS: FUROSEMIDE 40 MG/4 ML VIAL IV SCH ×2 (11:50→22:20)
[2017-06-02 12:53] LABS: Calcium 8.1 MG/DL (8.5-10.1); Magnesium 1.6 MG/DL (1.8-2.4); Potassium 3.4 MMOL/L (3.5-5.1)
[2017-06-02] MEDS: cefTRIAXone 1,000 MG VIAL IM SCH (14:01)
[2017-06-02] MEDS ORDERED: POTASSIUM CHLORIDE 20 MEQ TABLET PO ONE (14:46)
--- NOTE | 2017-06-02 15:13 | Hospitalist Progress Note ---
Assessment and Plan (1) clinical cirrhosis Status: Acute Assessment and plan: 1)encephalopathy- improved with xifaxin and lactulose- continue these. no asterixis 2)ascites- paracentesis pending, on empiric treatment for SBP. 3)obesity 4) chronic alcohol abuse- no sign of withdrawal Current Visit: No (2) Chronic alcohol abuse Status: Chronic Current Visit: No (3) Hepatomegaly Status: Acute Current Visit: No (4) Hepatic encephalopathy Status: Resolved Current Visit: No (5) HTN (hypertension) Status: Acute Current Visit: No (6) CKD (chronic kidney disease) stage 2, GFR 60-89 ml/min Status: Acute Current Visit: No Hospitalist: Subjective Interval history: Mr Nascimento had no complaints today. He is not orineted to name of the hospital but knows he is in [place]. He denies pain or shortness of breath. Exam - Constitutional Vitals: Period Temp Pulse Resp BP Sys/Stephens Pulse Ox Last 24 Hr 96.9 F-100.0 F 66-79 17-20 112-154/45-94 91-95 General appearance: no acute distress (lying nearly flat without dyspnea), morbidly obese - Eye Eye exam: Present: EOMI, scleral icterus - Respiratory Respiratory exam: Present: clear to auscultation bilaterally - Cardiovascular Cardiovascular exam: Present: regular rate and rhythm - GI/Abdominal GI/Abdominal exam: Present: normal bowel sounds, soft - Extremities Exam Extremities exam: Absent: edema - Neurological Exam Neurological exam: Present: alert. Absent: oriented X3 Results - Labs CBC & BMP: 06/01/17 05:20 06/02/17 12:13 Lab Results: I have reviewed the past 24 hour labs Quality Measures - VTE Contraindication to Pharmacological VTE Prophylaxis: Thrombocytopenia
[2017-06-02] MEDS: POLYETHYLENE GLYCOL POWDER 17 GM PACK PO SCH (15:53)
--- NOTE | 2017-06-02 18:26 | Event Note ---
I was unable to add it KATELYNN Mcdonough's GI progress note dictated today due to [employer] E HR issues. Patient seen and examined. Agree with her note. Patient's mental status much improved. He denies abdominal pain now. Still only having 1 bowel movement per day on lactulose every 4 hours. Patient now alert. Afebrile/vital signs stable. Lungs clear to auscultation. Heart regular rate and rhythm without gallop or rub. Abdomen soft and nontender, bowel sounds present. Hepatic encephalopathy is improved. Change lactulose to 30 cc 3 times a day and add MiraLAX 17 g daily. Plan EGD tomorrow for varices screening.
[2017-06-02] MEDS: SPIRONOLACTONE 50 MG TABLET PO SCH (20:52)
[2017-06-02] MEDS: TAMSULOSIN 0.4 MG CAPSULE PO SCH (20:52)
[2017-06-02] MEDS: LATANOPROST 0.005% OPH SOLN 2.5 ML BOTTLE LEFT EYE SCH (20:52)
[2017-06-02] MEDS: INSULIN GLARGINE 100 UNIT/ML SUBCUT SCH (21:05)
[2017-06-03 05:44] LABS: Basophils % 0.7 % (0.0-0.8); Eosinophils # 0.3 10*3/uL (0.0-0.87); Eosinophils % 5.5 % (0.00-10.9); Hematocrit 26.2 VOL% (42.0-52.0); Hemoglobin 9.5 GM/DL (14.0-18.0); Immature Granulocytes % 0.2 %; Immature Granulocytes Absolute 0.01 #; Lymphocytes # 1.5 10*3/uL (1.4-4.0); Lymphocytes % 28.3 % (21.2-54.2); Mean Corpuscular HGB Conc 36.3 GM/DL (32-36); Mean Corpuscular Hemoglobin 35 PG (27-34); Mean Corpuscular Volume 96.3 FL (87-102); Mean Platelet Volume 9.8 FL (9.6-12.0); Monocytes # 0.7 10*3/uL (0.11-0.8); Monocytes % 13.6 % (1.7-12.7); Neutrophils # 2.8 10*3/uL (1.4-7.4); Neutrophils % 51.7 % (38.7-73.9); Platelet Count 105 T/CUMM (130-400); Red Blood Count 2.72 MC/CUMM (3.8-5.5); Red Cell Distribution Width 14.6 % (9.3-17.3); White Blood Count 5.5 T/CUMM (4-12)
[2017-06-03 06:04] LABS: Burr Cells Slight; Giant Platelets Few; Hypochromasia 1+; Ovalocytes Slight; Platelet Estimate Decreased
[2017-06-03 06:19] LABS: Calcium 8.4 MG/DL (8.5-10.1); Osmolality,Calculated 282.1 MOS/KG (273-304); Potassium 3.3 MMOL/L (3.5-5.1)
[2017-06-03] MEDS: LEVOTHYROXINE 50 MCG TABLET PO SCH (07:01)
[2017-06-03] MEDS: INSULIN LISPRO 100 UNIT/ML SUBCUT SCH ×7 (08:39→20:40)
[2017-06-03] MEDS: SODIUM CHLORIDE 0.9% 1,000 ML IV SCH ×2 (09:36→15:10)
[2017-06-03] MEDS: ATROPINE 1 % OPH SOLN 5 ML BOTTLE LEFT EYE SCH ×4 (09:37→20:40)
[2017-06-03] MEDS: LACTULOSE 20 GM/30 ML UDCUP PO SCH ×3 (09:37→20:36)
[2017-06-03] MEDS: ALBUMIN 25% 50 GM in PREMIX 1 EACH IV SCH ×2 (09:48→20:42)
--- NOTE | 2017-06-03 10:06 | Hospitalist Progress Note ---
Assessment and Plan - Time spent with patient Time spent with patient: Less than 30 minutes (1) Altered mental status Status: Acute Assessment and plan: 06/03/17 Improved: more awake and alert, answering questions appropriately. K+ 3.3 this a.m. will replace Will repeat a.m. labs including ammonia level Current Visit: Yes (2) Anemia Status: Acute Assessment and plan: 06/03/17 Anemia stable H&H 9.5 and 26.2 Current Visit: Yes (3) Abdominal pain Status: Acute Assessment and plan: 06/03/17 - EGD scheduled for today with Dr Dorsey for varices screening Current Visit: No Hospitalist: Subjective Interval history: Mr Nascimento seen and chart reviewed. He is scheduled for EGD today for varices screening with Dr Dorsey. He denies shortness of breath, chest pain, nausea or vomiting. He verbalized not sleeping very well last night. Noted in chart, once patient is ready for discharge, he will return home, daughter wishes to continue to be his primary care provider. Exam - Constitutional Vitals: Period Temp Pulse Resp BP Sys/Stephens Pulse Ox Last 24 Hr 98.1 F-99.2 F 66-77 17-20 112-154/55-80 92-97 General appearance: normal weight, no acute distress - Head Head exam: Present: normal inspection, normocephalic - Eye Eye exam: Present: EOMI Pupils: Present: CHARLES - Neck Neck exam: Present: normal inspection - Respiratory Respiratory exam: Present: decreased breath sounds - Cardiovascular Cardiovascular exam: Present: regular rate and rhythm - GI/Abdominal GI/Abdominal exam: Present: normal bowel sounds, distended, soft. Absent: firm , guarding, rebound - Extremities Exam Extremities exam: Present: normal inspection, full ROM, edema - Neurological Exam Neurological exam: Present: alert (answers questions appropriately, awake and alert to person) - Psychiatric Psychiatric exam: Present: normal affect, normal mood. Absent: agitated, anxious - Skin Skin exam: Present: normal color, warm, dry Results - Labs CBC & BMP: 06/03/17 04:26 06/03/17 04:26 Lab Results: I have reviewed the past 24 hour labs Quality Measures - VTE Contraindication to Pharmacological VTE Prophylaxis: Thrombocytopenia
[2017-06-03] MEDS ORDERED: POTASSIUM CHLORIDE 20 MEQ TABLET PO ONE ×2 (10:21→15:00)
--- NOTE | 2017-06-03 13:15 | History and Physical Update ---
History and Physical Update - History and Physical H&P was reviewed, the patient examined and there: are no changes in the patients condition since last H&P was completed. - Physical Exam Mental Status: alert and oriented Heart: regular rate and rhythm Lung: clear to auscultation Abdomen: within normal limits Vitals: within normal limits
--- NOTE | 2017-06-03 13:25 | Operative Note ---
Date of procedure: 06/03/17 Pre-op diagnosis: Cirrhosis of liver Procedure: Procedure: Esophagogastroduodenoscopy Brief clinical abstract: 71-year-old male has clinical cirrhosis of the liver. He was admitted with hepatic encephalopathy and noted to have some ascites. Indication for procedure: Cirrhosis, varices screening Endoscopic findings:[After informed consent was obtained, the patient was placed in the left lateral decubitus position. The gastroscope was inserted in the upper esophagus under direct vision with no resistance encountered. Esophageal mucosa appeared normal with squamocolumnar junction sharply demarcated at the diaphragmatic indentation. No varices were seen in the esophagus. The endoscope was advanced in the stomach which was carefully examined including retroflexed view of the cardia and fundus. No varices were noted in the stomach. There was prominence of the area gastrica pattern consistent with mild portal gastropathy. The pyloric channel, duodenal bulb, second and third portion of the duodenum appeared normal. The endoscope was removed and patient appeared to tolerate the procedure well. Impression: Mild portal gastropathy-otherwise normal EGD Recommendations: Would repeat EGD in 1 year for varices screening. Anesthesia: MAC Surgeon / Physician: Ellis Dorsey Estimated blood loss: none Specimens: none sent Condition: stable Disposition: post procedure unit Results - Labs CBC & BMP: 06/03/17 04:26 06/03/17 04:26 Discharge Plan - Discharge Medications No Action Carvedilol [Coreg] 3.125 mg PO BID W/MEALS Latanoprost [Latanoprost 0.005 % Oph Soln] 1 drop LEFT EYE BEDTIME Thiamine Tab [Vitamin B1 Tab] 100 mg PO DAILY Levothyroxine Tab [Synthroid Tab] 25 mcg PO DAILY@0700 Spironolactone [Aldactone] 50 mg PO BEDTIME Pantoprazole Tab [Protonix Tab] 40 mg PO DAILY hydroCHLOROthiazide [Hydrochlorothiazide] 25 mg PO DAILY Insulin Aspart [NovoLOG] 3 unit SUBCUT TID W/MEALS - Follow Up or Referral - Forms/Instructions
--- NOTE | 2017-06-03 13:52 | Anesthesia Post-Op ---
Anesthesia Post OP - Post Ansesthetic Evaluation Patient seen in post op: Yes Resp: within normal limits CV: within normal limits Mental: within normal limits Temp: within normal limits [id number]: within normal limits Nausea and Vomiting: within normal limits Pain: within normal limits
[2017-06-03] MEDS: CALCIUM (CITRATE)/VITAMIN D 200 MG-125 UNIT TABLET PO SCH ×2 (15:02→20:35)
[2017-06-03] MEDS: MULTIVITAMIN (BEROCCA) TABLET PO SCH (15:02)
[2017-06-03] MEDS: THIAMINE 100 MG TABLET PO SCH (15:02)
[2017-06-03] MEDS: cefTRIAXone 1,000 MG VIAL IM SCH (15:02)
[2017-06-03] MEDS: hydroCHLOROthiazide 25 MG TABLET PO SCH (15:02)
[2017-06-03] MEDS: PANTOPRAZOLE 40 MG TABLET PO SCH (15:02)
[2017-06-03] MEDS: POLYETHYLENE GLYCOL POWDER 17 GM PACK PO SCH (15:02)
[2017-06-03] MEDS: ASPIRIN CHEW 81 MG TABLET PO SCH (15:03)
[2017-06-03] MEDS: RIFAXIMIN 550 MG TABLET PO SCH (15:09)
[2017-06-03] MEDS: FUROSEMIDE 40 MG/4 ML VIAL IV SCH (15:10)
[2017-06-03] MEDS: FUROSEMIDE 40 MG TABLET PO SCH (16:52)
[2017-06-03] MEDS: TAMSULOSIN 0.4 MG CAPSULE PO SCH (20:35)
[2017-06-03] MEDS: SPIRONOLACTONE 50 MG TABLET PO SCH (20:36)
[2017-06-03] MEDS: LATANOPROST 0.005% OPH SOLN 2.5 ML BOTTLE LEFT EYE SCH (20:40)
[2017-06-03] MEDS: INSULIN GLARGINE 100 UNIT/ML SUBCUT SCH (20:40)
[2017-06-04 05:44] LABS: Basophils % 0.7 % (0.0-0.8); Eosinophils # 0.2 10*3/uL (0.0-0.87); Eosinophils % 5.6 % (0.00-10.9); Hematocrit 23.6 VOL% (42.0-52.0); Hemoglobin 8.6 GM/DL (14.0-18.0); Immature Granulocytes % 0.7 %; Immature Granulocytes Absolute 0.03 #; Lymphocytes # 1.4 10*3/uL (1.4-4.0); Mean Corpuscular HGB Conc 36.4 GM/DL (32-36); Mean Corpuscular Hemoglobin 35 PG (27-34); Mean Corpuscular Volume 95.9 FL (87-102); Mean Platelet Volume 9.7 FL (9.6-12.0); Monocytes # 0.6 10*3/uL (0.11-0.8); Monocytes % 14.5 % (1.7-12.7); Neutrophils % 46.5 % (38.7-73.9); Red Blood Count 2.46 MC/CUMM (3.8-5.5); Red Cell Distribution Width 14.8 % (9.3-17.3); White Blood Count 4.3 T/CUMM (4-12)
[2017-06-04 05:52] LABS: Platelet Count 92 T/CUMM (130-400)
[2017-06-04 06:11] LABS: Calcium 8.5 MG/DL (8.5-10.1); Magnesium 1.7 MG/DL (1.8-2.4); Potassium 3.8 MMOL/L (3.5-5.1)
[2017-06-04 06:12] LABS: Hypochromasia 1+
[2017-06-04 06:13] LABS: Macrocytosis Slight; Ovalocytes Slight; Platelet Estimate Decreased
[2017-06-04] MEDS: LEVOTHYROXINE 50 MCG TABLET PO SCH (06:33)
[2017-06-04] MEDS: INSULIN LISPRO 100 UNIT/ML SUBCUT SCH ×4 (07:45→12:07)
[2017-06-04] MEDS: ALBUMIN 25% 50 GM in PREMIX 1 EACH IV SCH (08:27)
[2017-06-04] MEDS: THIAMINE 100 MG TABLET PO SCH (08:32)
[2017-06-04] MEDS: PANTOPRAZOLE 40 MG TABLET PO SCH (08:32)
[2017-06-04] MEDS: FUROSEMIDE 40 MG TABLET PO SCH (08:32)
[2017-06-04] MEDS: CALCIUM (CITRATE)/VITAMIN D 200 MG-125 UNIT TABLET PO SCH (08:32)
[2017-06-04] MEDS: LACTULOSE 20 GM/30 ML UDCUP PO SCH (08:32)
[2017-06-04] MEDS: ATROPINE 1 % OPH SOLN 5 ML BOTTLE LEFT EYE SCH ×2 (08:32→13:26)
[2017-06-04] MEDS: MULTIVITAMIN (BEROCCA) TABLET PO SCH (08:32)
[2017-06-04] MEDS: hydroCHLOROthiazide 25 MG TABLET PO SCH (08:32)
[2017-06-04] MEDS: ASPIRIN CHEW 81 MG TABLET PO SCH ×2 (08:33→10:05)
[2017-06-04] MEDS: POLYETHYLENE GLYCOL POWDER 17 GM PACK PO SCH (08:33)
[2017-06-04] MEDS: CLOPIDOGREL 75 MG TABLET PO SCH ×2 (08:33→10:05)
--- NOTE | 2017-06-04 08:54 | Gastrointestinal Progress Note ---
Assessment and Plan (1) Altered mental status Status: Acute Assessment and plan: 06/04-EGD findings noted as below. Ammonia 92 however patient oriented well. Having bowel movements 2-3 daily. Afebrile. Plan of care discussed with Dr. Hummel this morning. Plan an addendum to followed by Dr. Dorsey. 06/02-patient more alert, ammonia 81. Patient had one bowel movement daily lactulose. No daily weights noted. Consult social media director for possible placement at discharge per family request. Low-grade fever noted last night. Daily weights. Plan an addendum to followed by Dr. Dorsey 05/30-admitted status with history of cirrhosis with elevated ammonia levels noted as below. Long-term history of alcohol use with reported cessation months ago. Reported compliance of medications by daughter on admission. Mildly elevated bilirubin and alkaline phosphatase for ammonia at 64 today. Lactulose, Xifaxan initiated. Aldactone 50 mg daily, Lasix 40 mg twice daily noted. Also noted albumin twice daily. Continue to monitor at this time. Plan an addendum to followed by Dr. Dorsey. Current Visit: Yes Gastroenterology - PN: Subj Interval history: CC: Cirrhosis Patient is seen, awake, alert and oriented with family at bedside. He is noted to have a good appetite tolerating his diet well. He has no complaints of abdominal pain, nausea vomiting. According to nursing record, patient has not had a bowel movement several days with family at bedside states that he is having up to 2-3 bowel movements a day. His ammonia levels are elevated at 92 however patient is at his baseline mental status. EGD report noted with mild portal gastropathy on yesterday. Recommendations to repeat in 1 year for variceal screening. Abdomen soft, nontender. ROS: Denies shortness breath or chest pain Exam (Progress Note) - Constitutional Vitals: Period Temp Pulse Resp BP Sys/Stephens Pulse Ox Last 24 Hr 97.8 F-98.7 F 62-74 14-20 98-163/54-83 92-100 - Other Additional findings: General appearance: normal weight, no acute distress - Head Head exam: Present: normal inspection, normocephalic - Eye Eye exam: Present: other (Lids and conjunctivae are unremarkable). Absent: scleral icterus - ENT ENT exam: Present: normal exam, normal oropharynx - Neck Neck exam: Present: normal inspection - Respiratory Respiratory exam: Present: clear to auscultation bilaterally. Absent: rales, rhonchi, wheezes - Cardiovascular Cardiovascular exam: Present: regular rate and rhythm. Absent: diastolic murmur , JVD, systolic murmur - GI/Abdominal GI/Abdominal exam: Present: normal bowel sounds, ascites, soft. Absent: distended, mass, organomegaly, tenderness - Extremities Exam Extremities exam: Present: normal inspection, full ROM - Back Exam Back exam: Present: normal inspection - Neurological Exam Neurological exam: Present: alert, oriented X3 - Psychiatric Psychiatric exam: Present: normal affect, normal mood - Skin Skin exam: Present: normal color, warm, dry Results - Labs CBC & BMP: 06/04/17 04:38 06/04/17 04:38 Lab Results: I have reviewed the past 24 hour labs
[2017-06-04] MEDS ORDERED: MAGNESIUM SULF RIDER 2 GM in PREMIX 1 EACH IV ONE (09:00)
--- NOTE | 2017-06-04 10:50 | Discharge Summary ---
Hospital Course - Hospital Course Hospital Course: Mr Nascimento has cirrhosis and presented with hepatic encephalopathy. It has resolved to baseline with treatment with xifaxan and lactulose. He was seen while here by Dr Dorsey who will follow up with him in his clinic. He had an EGD which showed mild portal gastropathy. He will need a repeat in a year to screen for varices. He has a chronic anemia and his HGb is 8.6 today. No sign of bleeding. He will have a CBC in a week. ASA and Plavix held on admission in anticipation of procedures- these are restarted at discharge because of his cardiac disease which is stable. Home health will see him and he will also follow up with his PCP at [facility]. He is feeling better and has achieved max benefit from this hospital stay. 37 minutes required for discharge planning, documentation, medicine reconciliation. - Time spent with patient Time with patient DS: Greater than 30 minutes Diagnosis - Discharge Diagnosis (1) clinical cirrhosis Status: Chronic (2) Chronic alcohol abuse Status: Chronic (3) Hepatomegaly Status: Chronic (4) Hepatic encephalopathy Status: Resolved (5) HTN (hypertension) Status: Chronic (6) CKD (chronic kidney disease) stage 2, GFR 60-89 ml/min Status: Chronic Specialty Discharge - Follow Up or Referrals Follow up with: Ellis Dorsey MD [Physician] - 1 Month Your, PCP [Other] (1 week with H&H) Discharge Plan - Discharge Data Disposition: Home Health Service Condition at Discharge: Stable Discharge Diet: diabetic diet, heart healthy Activity: resume usual activities as tolerated - Discharge Medications New Aspirin Chew Tab 81 mg PO DAILY tablet Atropine 1 % Oph Soln [Isopto Atropine 1%] 1 drop LEFT EYE QID bottle Calcium (Citr)/Vit D 200-125 [Citracal + D] 1 tablet PO BID tablet Clopidogrel [Plavix] 75 mg PO DAILY tablet Insulin Glargine [Lantus] 5 unit SUBCUT BEDTIME unit Lactulose Liquid [Chronulac] 20 gm PO TID #30 unit Levothyroxine Tab [Synthroid Tab] 50 mcg PO DAILY@0700 #30 tablet Rifaximin [Xifaxan] 550 mg PO BID #60 tablet Tamsulosin [Flomax] 0.4 mg PO BEDTIME capsule Furosemide Tab [Lasix Tab] 40 mg PO BID DIURETIC tablet Multivitamin (Berocca) [Berocca] 1 tablet PO DAILY tablet Continue Carvedilol [Coreg] 3.125 mg PO BID W/MEALS Latanoprost [Latanoprost 0.005 % Oph Soln] 1 drop LEFT EYE BEDTIME Thiamine Tab [Vitamin B1 Tab] 100 mg PO DAILY Spironolactone [Aldactone] 50 mg PO BEDTIME Pantoprazole Tab [Protonix Tab] 40 mg PO DAILY hydroCHLOROthiazide [Hydrochlorothiazide] 25 mg PO DAILY Insulin Aspart [NovoLOG] 3 unit SUBCUT TID W/MEALS Discontinued Levothyroxine Tab [Synthroid Tab] 25 mcg PO DAILY@0700 - Follow Up or Referral - Forms/Instructions Additional Discharge Instructions: CBC in 1 week Exam - Constitutional Vitals: Period Temp Pulse Resp BP Sys/Stephens Pulse Ox Last 24 Hr 97.8 F-98.7 F 62-74 14-20 98-163/54-83 92-100 General appearance: no acute distress, over weight - Head Head exam: Present: normocephalic, atraumatic - Eye Eye exam: Present: EOMI. Absent: scleral icterus - Respiratory Respiratory exam: Present: clear to auscultation bilaterally - Cardiovascular Cardiovascular exam: Present: regular rate and rhythm - GI/Abdominal GI/Abdominal exam: Present: normal bowel sounds, soft. Absent: tenderness - Extremities Exam Extremities exam: Absent: edema Discharge Results Procedures and tests throughout hospitalization: Pending Orders 05/30/17 12:37 Cell Count w Diff, Peritone Fl Routine 05/30/17 12:38 Albumin,Body Fluid Routine 05/30/17 13:56 Body Fluid Cult and Gram Stain Routine Labs on day of discharge: Labs from last 24 hours 06/04/17 06/04/17 06/04/17 07:16 04:38 04:38 WBC 4.3 RBC 2.46 L Hgb 8.6 L Hct 23.6 L MCV 95.9 MCH 35 H MCHC 36.4 H RDW 14.8 Plt Count 92 L MPV 9.7 Neut % (Auto) 46.5 Lymph % (Auto) 32.0 [place] % (Auto) 14.5 H Eos % (Auto) 5.6 Baso % (Auto) 0.7 Neut # (Auto) 2.0 Lymph # (Auto) 1.4 [place] # (Auto) 0.6 Eos # (Auto) 0.2 Baso # (Auto) 0.0 Immature Gran % 0.7 Nucleated RBC % 0.0 Immature Gran # 0.03 Nucleated RBCs # 0.00 Platelet Estimate Decreased Immature Plt Fraction 0.0 Hypochromasia 1+ Macrocytosis Slight Ovalocytes Slight Morphology Comment Sodium 143 Potassium 3.8 Chloride 111 H Carbon Dioxide 24 Anion Gap 11.8 BUN 12 Creatinine 0.80 GFR Calculation 104 BUN/Creatinine Ratio 15.00 Glucose 91 POC Glucose 77 Calculated Osmolality 284.0 Calcium 8.5 Magnesium 1.7 L Ammonia 92 H 06/03/17 06/03/17 06/03/17 19:54 15:12 11:38 WBC RBC Hgb Hct MCV MCH MCHC RDW Plt Count MPV Neut % (Auto) Lymph % (Auto) [place] % (Auto) Eos % (Auto) Baso % (Auto) Neut # (Auto) Lymph # (Auto) [place] # (Auto) Eos # (Auto) Baso # (Auto) Immature Gran % Nucleated RBC % Immature Gran # Nucleated RBCs # Platelet Estimate Immature Plt Fraction Hypochromasia Macrocytosis Ovalocytes Morphology Comment Sodium Potassium Chloride Carbon Dioxide Anion Gap BUN Creatinine GFR Calculation BUN/Creatinine Ratio Glucose POC Glucose 168 H 104 109 H Calculated Osmolality Calcium Magnesium Ammonia DS: Provider Date of admission: 05/30/17 01:26 Primary care physician: Mike Hull MD Attending physician on admission: John Cedillo MD Consults: 05/30/17 01:43 Consult to Physician [CONS] Routine Comment: Consulting Provider: Ellis Dorsey Person Notified: TELLY JONG GUARDADO Date Notified: 05/30/17 Time Notified: 08:40 05/30/17 03:11 Consult to Pastoral Services [CONS] Routine Comment: Pastoral Screen: Request Utility Sales Representative Visit Pastoral Screen Source of Request: Family 06/02/17 15:36 Consult to Case Mgmt/Social Srvs [CONS] Routine Reason for Case Mgmt/Social Srvs: Swingbed/SNF/Half-Way Discharging clinician: Natacha Hummel MD
[2017-06-04] MEDS ORDERED: RIFAXIMIN 550 MG TABLET PO SCH (11:00)
[2017-06-04 11:09] VITALS: BP 140/68
== END 2017-06-04 13:45 | disposition home health service (06) | DRG 442 ==
LOC: EDUNIT# → EDBD → N.ED 23:30 → SUATTDRO 05-30 01:26 → N.EDINP 05-30 01:26 → N.5E 05-30 02:22
PROVIDERS: ADMIT Family Medicine; ATTEND Internal Medicine

== ENCOUNTER 2017-06-16 16:21 | Inpatient (IN) ==
[2017-06-16] MEDS ORDERED: ACETAMINOPHEN 650 MG SUPP RECTAL STA (17:04)
[2017-06-16] MEDS ORDERED: ALBUTEROL/IPRATROPIUM 3 ML NEB RESP TX STA (17:04)
[2017-06-16] MEDS ORDERED: FUROSEMIDE 40 MG/4 ML VIAL IV STA (17:04)
[2017-06-16] MEDS ORDERED: hydrALAZINE 20 MG/1 ML VIAL IV STA (17:05)
--- NOTE | 2017-06-16 17:07 | Emergency Department Note ---
IAddie Emily, am scribing for, and in the presence of, Carlitos Ronquillo MD 16: 59. Yg Martino Charles R, MD, personally performed the services described in this documentation, ascribed by Apryl Real in my presence, and it is both accurate and complete [id number] . Arrival - Arrival Chief Complaint: Altered Mental Status Stated Complaint: DECREASE LOC ED Nursing Triage Note: C/O Having altered LOC x 2 days., + temp., 103.2 at home , report from EMS, No family present at time of triage., was evaluated a few weeks ago with a diagnosis of high ammonia level Mode of Arrival: Stretcher Limitations: Altered Mental Status Source: Family, RN Notes Reviewed Time Seen by Provider: 06/16/17 16:39 - History of Present Illness HPI Narrative: Pt is a 71 y/o male who was brought to ED by EMS for further evaluation of AMS when found this morning by his family member. Family notes pt was walking around last night and ate some food. Family reports pt was here last week for same sxs, in which was dx with hepatic encephalus with an ammonia level of 45. Family states pt has had difficulty with output but denies coughing recently. EMS reports accu check was 122. Pt is not arousable or responding to stimuli at this time, but has a fever of 104 in ED. PMHx of alcoholism, liver problems , NIDDM, VT, CHF, HLD, HTN. Pt is a smoker. Family notes wanting all life measuring to be administered for pt, in which old records show pt is full code. Onset (ago): day(s) Consistency: constant Severity: severe Severity scale (1-10): 10 Allergies/Adverse Reactions: Allergies Allergy/AdvReac Type Severity Reaction Status Date / Time No Known Allergies Allergy Verified 02/06/17 11:35 Home Medications: Home Medications Medication Instructions Recorded Confirmed Type Carvedilol [Coreg] 3.125 mg PO BID W/MEALS 02/06/17 05/30/17 History Insulin Aspart [NovoLOG] 3 unit SUBCUT TID W/MEALS 05/30/17 05/30/17 History Latanoprost [Latanoprost 0.005 % 1 drop LEFT EYE BEDTIME 05/30/17 05/30/17 History Oph Soln] Pantoprazole Tab [Protonix Tab] 40 mg PO DAILY 05/30/17 05/30/17 History Spironolactone [Aldactone] 50 mg PO BEDTIME 05/30/17 05/30/17 History Thiamine Tab [Vitamin B1 Tab] 100 mg PO DAILY 05/30/17 05/30/17 History hydroCHLOROthiazide 25 mg PO DAILY 05/30/17 05/30/17 History [Hydrochlorothiazide] Aspirin Chew Tab 81 mg PO DAILY tablet 06/04/17 Rx Atropine 1 % Oph Soln [Isopto 1 drop LEFT EYE QID bottle 06/04/17 Rx Atropine 1%] Calcium (Citr)/Vit D 200-125 1 tablet PO BID tablet 06/04/17 Rx [Citracal + D] Clopidogrel [Plavix] 75 mg PO DAILY tablet 06/04/17 Rx Furosemide Tab [Lasix Tab] 40 mg PO BID DIURETIC tablet 06/04/17 Rx Insulin Glargine [Lantus] 5 unit SUBCUT BEDTIME unit 06/04/17 Rx Lactulose Liquid [Chronulac] 20 gm PO TID #30 unit 06/04/17 Rx Levothyroxine Tab [Synthroid Tab] 50 mcg PO DAILY@0700 #30 tablet 06/04/17 Rx Multivitamin (Berocca) [Berocca] 1 tablet PO DAILY tablet 06/04/17 Rx Rifaximin [Xifaxan] 550 mg PO BID #60 tablet 06/04/17 Rx Tamsulosin [Flomax] 0.4 mg PO BEDTIME capsule 06/04/17 Rx Review of System - Review of System ROS unobtainable: due to mental status (AMS) Medical,Surgical,& Family Hx - Medical History Cardio: History of: CHF, Hypertension, VT (2) Psychological: History of: Psychiatric/Substance Abuse Tx (alcohol abuse) Neurology: No history of: Seizures Endocrine: History of: Diabetes Mellitus (NIDDM), Dyslipidemia Respiratory: History of: COPD, Obstructive Sleep Apnea, Respiratory Problems ( chf) Gastrointestinal: History of: Liver Problems - Surgical History Cardiac Surgeries: Sugical HX of: Cardiac Catheterization (X 2 STENTS) Orthopedic Surgeries: Surgical HX of;: Orthopedic Surgery - Family History Family History: Reports;: Family Diabetes, Family Heart Disease - Social History Smoking Status: Current every day smoker Frequency of Alcohol Use: Unknown Type of Drug Use: Unknown Marital Status: Single Lives With:: family Functional capacity: independent ambulation Exam Vital Signs: Vital Signs Temperature 104.0 F H 06/16/17 16:23 Pulse Rate 94 H 06/16/17 16:31 Respiratory Rate 20 06/16/17 16:31 Blood Pressure 172/75 06/16/17 16:31 O2 Sat by Pulse Oximetry 97 06/16/17 16:31 - General Exam limited due to: ALOC - Head Head exam: Present: atraumatic, normocephalic - Eye Eye exam: Present: other (no lobe in left eye). Absent: PERRL, EOMI - ENT ENT exam: Present: mucous membranes dry. Absent: mucous membranes moist - Chest Chest inspection: Present: symmetric chest wall rise - Neurological Exam Neurological exam: Absent: alert, oriented X3, CN II-XII intact (GCS of 9) - Skin Skin exam: Present: warm, dry Course - Consultations Consultation #1: Hospitalist will admit patient Time: 17:45 Results - Labs CBC & BMP: 06/16/17 16:55 06/16/17 16:55 Lab Results: I have reviewed the patients labs Labs: Laboratory Tests 06/16/17 06/16/17 06/16/17 16:55 16:55 16:58 WBC 14.9 H RBC 3.26 L Hgb 11.5 L Hct 31.4 L MCH 35 H MCHC 36.6 H Plt Count 121 L Neut % (Auto) 87.0 H Lymph % (Auto) 7.6 L Neut # (Auto) 13.0 H Lymph # (Auto) 1.1 L Sodium 140 Potassium 3.5 Chloride 108 H BUN 23 H BUN/Creatinine Ratio 23.00 H Glucose 109 H Lactic Acid 2.5 H Total Bilirubin 3.20 H AST 38 H Alkaline Phosphatase 146 H Ammonia 107 H Total Creatine Kinase 178 Albumin 3.0 L Globulin 4.5 H Albumin/Globulin Ratio 0.6 L Urine Color Yellow Urine Appearance Clear Urine pH 7.0 Ur Specific [place] 1.011 Urine Protein >=500 Urine Blood Moderate Urine Nitrate Negative Urine Urobilinogen 4.0 H Urine Leukocytes Negative Urine RBC 8 Urine WBC 2 Urine Mucus Occasional Serum Alcohol < 15 L Critical Care Time Critical Care Time: Yes Total Critical Care Time: 60 Disposition Clinical Impression: Dementia, Sepsis, clinical cirrhosis, Altered mental status, Congestive heart failure, Hypertensive urgency, Decreased level of consciousness, Fever, Hepatitis C, Hepatic encephalopathy, Hypertensive encephalopathy, Hyperbilirubinemia, Leukocytosis Case discussed with: patient, patient's family Disposition: Still a Patient Condition: Guarded Time of Disposition: 17:47
[2017-06-16 17:10] LABS: Basophils % 0.3 % (0.0-0.8); Eosinophils % 0.1 % (0.00-10.9); Hematocrit 31.4 VOL% (42.0-52.0); Hemoglobin 11.5 GM/DL (14.0-18.0); Immature Granulocytes % 1.8 %; Immature Granulocytes Absolute 0.27 #; Lymphocytes # 1.1 10*3/uL (1.4-4.0); Lymphocytes % 7.6 % (21.2-54.2); Mean Corpuscular HGB Conc 36.6 GM/DL (32-36); Mean Corpuscular Hemoglobin 35 PG (27-34); Mean Corpuscular Volume 96.3 FL (87-102); Monocytes # 0.5 10*3/uL (0.11-0.8); Monocytes % 3.2 % (1.7-12.7); Platelet Count 121 T/CUMM (130-400); Red Blood Count 3.26 MC/CUMM (3.8-5.5); Red Cell Distribution Width 16.3 % (9.3-17.3); White Blood Count 14.9 T/CUMM (4-12)
[2017-06-16 17:25] LABS: INR 1.3; PT Patient Result 13.5 SECS
[2017-06-16] MEDS ORDERED: ACETAMINOPHEN 325 MG SUPP RECTAL ONE (17:29)
[2017-06-16] MEDS ORDERED: hydrALAZINE 20 MG/1 ML VIAL ONE (17:29)
[2017-06-16] MEDS ORDERED: FUROSEMIDE 100 MG/10 ML VIAL ONE (17:29)
[2017-06-16 17:33] LABS: Alanine Aminotransferase 22 U/L (16-61); Alkaline Phosphatase 146 U/L (45-117); Aspartate Amino Transferase 38 U/L (0-37); Blood Urea Nitrogen 23 MG/DL (7-18); Calcium 9.2 MG/DL (8.5-10.1); Glucose 109 MG/DL (74-106); Magnesium 1.9 MG/DL (1.8-2.4); Osmolality,Calculated 283.4 MOS/KG (273-304); Potassium 3.5 MMOL/L (3.5-5.1); Sodium 140 MMOL/L (136-145); Total Protein 7.5 G/DL (6.4-8.3); Troponin I Only < 0.015 NG/ML (0.00-0.045)
[2017-06-16] MEDS ORDERED: cefTRIAXone 1,000 MG in SODIUM CHLORIDE 0.9% 100 ML IV STA (17:33)
[2017-06-16 17:35] LABS: Ammonia 107 UMOL/L (11-32)
[2017-06-16 17:39] LABS: Lactic Acid 2.5 MMOL/L (0.4-2.0)
[2017-06-16 17:39] LABS: Apearance,Urine CLEAR (Clear); Bilirubin,Urine Negative (Negative); Blood, Urine Moderate mg/dL (Negative); Glucose,Urine (UA) Negative (Negative); Ketones,Urine Negative (Negative); Mucus,Urine Occasional /LPF (Occasional); Nitrite,Urine Negative (Negative); Protein,Urine >=500 MG/DL; RBC,Urine 8 /HPF (0-4); Urine Color Yellow (Yellow); Urine Specific Gravity 1.011 (1.001-1.035); WBC,Urine 2 /HPF (0-6)
--- NOTE | 2017-06-16 17:43 | XRay Report ---
Portable chest. Indication: Altered mental status. Comparison: May 30, 2017. The heart is normal in size. There are scattered areas of atelectasis present within the lung bases. The pulmonary vasculature is prominent. There is uncoiling of the thoracic aorta, often indicating chronic hypertension. Degenerative changes are present within the spinal column and shoulders. Impression: Basilar atelectasis. No acute abnormality or interval change is seen. PROCEDURE INTERPRETED AT [facility] DEPARTMENT OF RADIOLOGY Final Report Signed by: Dr. Harriet Canela
--- NOTE | 2017-06-16 17:43 | CT Report ---
CT head/brain wo con INDICATION: Altered mental status/confusion The total DLP is 1108 mGy*cm. COMPARISON: Noncontrast CT head dated 05/29/2017 Technique: Serial axial tomographic images of the brain were obtained without the use of intravenous contrast. Dose reduction: This CT exam was performed using one or more of the following dose reduction techniques: Automated exposure control, automated adjustment of the mA and/or KV according to patient size, or use of iterative reconstruction technique. Findings: Mild generalized atrophy is noted with mild prominence of the sulci and cortical volume loss. Periventricular white matter hypodensity changes are noted bilaterally which do not demonstrate mass effect and are nonspecific but favored to represent sequela of chronic microvascular ischemia. There is also focal hypodensity within the right subcortical frontoparietal parietal lobe, unchanged and may represent age-indeterminate lacunar infarct. There is no evidence of vascular territory infarct or acute intracranial hemorrhage. The suazo-white matter differentiation is generally maintained. There is no hydrocephalus. The basilar cisterns are patent. Atherosclerotic changes of the bilateral cavernous and supraclinoid internal carotid arteries is noted. The visualized paranasal sinuses, mastoid air cells and middle ear cavities are predominantly clear. The included orbits and right globe appear within normal limits. Shrunken hyperdense left globe most compatible with prior injury and prosthetic replacement. The visualized osseous structures and overlying soft tissues of the skull and face demonstrate no acute abnormality. IMPRESSION: No acute intracranial abnormality. Similar mild atrophy and findings suggestive of sequela of chronic microvascular ischemia. PROCEDURE INTERPRETED AT [facility] DEPARTMENT OF RADIOLOGY Final Report Signed by: Charles Funez
[2017-06-16 17:46] LABS: Barbiturates Screen,Urine Negative (Negative); Benzodiazepines Screen,Urine Negative (Negative); Cannabinoid Screen,Urine Negative (Negative); Opiate Screen,Urine Negative (Negative); Phencyclidine Screen,Urine Negative (Negative)
[2017-06-16 17:48] LABS: ABG Base Excess -0.7 MMOL/L (-2.5-2.5); ABG HCO3 23.8 MMOL/L (20-26); ABG Oxygen Saturation 95.1 % (95-100); ABG PH 7.528 (7.35-7.45); ABG TCO2 18.5 MMOL/L (23-27)
[2017-06-16] MEDS ORDERED: PIPERACILLIN/TAZOBACTAM 3,375 MG in SODIUM CHLORIDE 0.9% 100 ML IV SCH (18:00)
[2017-06-16 18:25] LABS: Sedimentation Rate-Westergren 95 MM/HR (0-20)
[2017-06-16] MEDS ORDERED: PIPERACILLIN/TAZOBACTAM 3,375 MG VIAL IV ONE (19:05)
--- NOTE | 2017-06-16 19:06 | Hospitalist History & Physical ---
<Mick Gray - Last Filed: 06/16/17 18:52> Assessment and Plan (1) Septic shock Status: Acute Assessment and plan: Admit to ICU. Implement sepsis protocol. Blood cultures pending. Lactic acid 2.5. Repeat per protocol and in the am. Start on IV antibiotics. Recheck labs in am. Repeat CXR in am. Abgs stat and in am. Current Visit: Yes (2) Hepatic encephalopathy Status: Acute Assessment and plan: Admit to ICU for close monitoring. Ammonia elevated. Recheck in am. Lactulose ordered. CT negative. History of liver cirrhosis. CBC/BMP ordered for am. CXR in am. Current Visit: Yes (3) Leukocytosis Status: Acute Assessment and plan: Blood cultures obtained. Urine obtained. Lactic acid. Pt. meets criteria for sepsis protocol. Current Visit: Yes (4) Diabetes Status: Chronic Assessment and plan: accuchecks achs. SSI. Current Visit: No Qualifiers: Diabetes mellitus type: type 2 (5) Hepatitis C virus infection Status: Chronic Current Visit: Yes (6) Peripheral edema Status: Chronic Current Visit: No History of Present Illness Chief complaint: altered mental status History of present illness: Mr. Nascimento is a 71 year old male with a history of hypertension, CHF, FL, diabetes, alcoholism, liver cirrhosis, hyperlipidemia, COPD, obstructive sleep apnea, alcohol and tobacco abuse presents to the ED for further evaluation of altered mental status. There was not any family present during the encounter and patient was unable to provide any history. Per records, patient was found this morning by family member. The patient was fine last night but a little confused. Pt. was recently hospitalized for similiar complaint and discharged on 06/04. On encounter, pt is only slightly arousable to painful stimuli. Vital signs from ED include a temp of 104, pt was also tachycardiac on arrival at 100 with an elevated BP. Labs revealed WBC of 14.9 and h&h of 11.5/31.4. ESR was 95 with a lactic acid of 2.5. AST and ALT were 38 and 22 respectively. Pt. also had an ammonia level of 107. Pt's case has been discussed with ER physician and hospitalist Dr. David. Pt. will be admitted to the hospitalist service and placed in the ICU for close monitoring. Home meds have been reviewed but not reconciled at this time. Home Medications Medication Instructions Recorded Confirmed Type Carvedilol [Coreg] 3.125 mg PO BID W/MEALS 02/06/17 05/30/17 History Insulin Aspart [NovoLOG] 3 unit SUBCUT TID W/MEALS 05/30/17 05/30/17 History Latanoprost [Latanoprost 0.005 % 1 drop LEFT EYE BEDTIME 05/30/17 05/30/17 History Oph Soln] Pantoprazole Tab [Protonix Tab] 40 mg PO DAILY 05/30/17 05/30/17 History Spironolactone [Aldactone] 50 mg PO BEDTIME 05/30/17 05/30/17 History Thiamine Tab [Vitamin B1 Tab] 100 mg PO DAILY 05/30/17 05/30/17 History hydroCHLOROthiazide 25 mg PO DAILY 05/30/17 05/30/17 History [Hydrochlorothiazide] Aspirin Chew Tab 81 mg PO DAILY tablet 06/04/17 Rx Atropine 1 % Oph Soln [Isopto 1 drop LEFT EYE QID bottle 06/04/17 Rx Atropine 1%] Calcium (Citr)/Vit D 200-125 1 tablet PO BID tablet 06/04/17 Rx [Citracal + D] Clopidogrel [Plavix] 75 mg PO DAILY tablet 06/04/17 Rx Furosemide Tab [Lasix Tab] 40 mg PO BID DIURETIC tablet 06/04/17 Rx Insulin Glargine [Lantus] 5 unit SUBCUT BEDTIME unit 06/04/17 Rx Lactulose Liquid [Chronulac] 20 gm PO TID #30 unit 06/04/17 Rx Levothyroxine Tab [Synthroid Tab] 50 mcg PO DAILY@0700 #30 tablet 06/04/17 Rx Multivitamin (Berocca) [Berocca] 1 tablet PO DAILY tablet 06/04/17 Rx Rifaximin [Xifaxan] 550 mg PO BID #60 tablet 06/04/17 Rx Tamsulosin [Flomax] 0.4 mg PO BEDTIME capsule 06/04/17 Rx Allergies Allergy/AdvReac Type Severity Reaction Status Date / Time No Known Allergies Allergy Verified 02/06/17 11:35 Medical,Surgical,& Family Hx - Medical History Cardio: History of: CHF, Hypertension, FL (2) Psychological: History of: Psychiatric/Substance Abuse Tx (alcohol abuse) Neurology: No history of: Seizures Endocrine: History of: Diabetes Mellitus (NIDDM), Dyslipidemia Respiratory: History of: COPD, Obstructive Sleep Apnea, Respiratory Problems ( chf) Gastrointestinal: History of: Liver Problems - Surgical History Cardiac Surgeries: Sugical HX of: Cardiac Catheterization (X 2 STENTS) Orthopedic Surgeries: Surgical HX of;: Orthopedic Surgery - Family History Family History: Reports;: Family Diabetes, Family Heart Disease - Social History Smoking Status: Current every day smoker Frequency of Alcohol Use: Unknown Type of Drug Use: Unknown Marital Status: Single Lives With:: family Functional capacity: independent ambulation ROS unobtainable: due to mental status (pt unresponsive.) Exam - Constitutional Vitals: Period Temp Pulse Resp BP Sys/Stephens Pulse Ox Last 24 Hr 104.0 F-104.0 F 85-100 18-20 172-182/75-82 97-99 General appearance: mild distress, over weight - Head Head exam: Present: normal inspection, normocephalic - Eye Eye exam: Present: EOMI. Absent: scleral icterus Pupils: Present: CHARLES - Respiratory Respiratory exam: Present: clear to auscultation bilaterally. Absent: wheezes - GI/Abdominal GI/Abdominal exam: Present: normal bowel sounds, soft. Absent: tenderness - Extremities Exam Extremities exam: Present: edema (BLE. right greater than left.) - Neurological Exam Neurological exam: Present: altered. Absent: oriented X3 - Psychiatric Psychiatric exam: Present: normal affect, normal mood - Skin Skin exam: Present: normal color, warm, dry Results - Labs CBC & BMP: 06/16/17 16:55 06/16/17 16:55 Lab Results: I have reviewed the past 24 hour labs <Pari David - Last Filed: 06/16/17 20:20> Assessment and Plan (1) Severe sepsis Status: Acute Assessment and plan: zosyn, repeat lactic acid, ns bolus 2000 IV Current Visit: Yes (2) Alcoholic Status: Acute Assessment and plan: ammonia elevated, thiamine and folate Current Visit: Yes (3) Thrombocytopenia Status: Acute Assessment and plan: due to cirrhosis Current Visit: Yes (4) Metabolic encephalopathy Status: Acute Assessment and plan: lactulose tid schedule, feeding tube Current Visit: Yes (5) Cirrhosis Status: Acute Assessment and plan: low plt and elevated ast, elevated ammonia Current Visit: Yes (6) Aspiration into airway Status: Acute Assessment and plan: elevated WBC, zosyn for now, blood Current Visit: Yes (7) Acute exacerbation of chronic obstructive airways disease Status: Acute Assessment and plan: duoneb Current Visit: No (8) Acute on chronic diastolic congestive heart failure Status: Acute Assessment and plan: bnp echo Current Visit: No (9) HTN (hypertension) Status: Chronic Assessment and plan: monitor Current Visit: No (10) CKD (chronic kidney disease) stage 2, GFR 60-89 ml/min Status: Chronic Assessment and plan: ns bolus Current Visit: No History of Present Illness History of present illness: Mr. Nascimento is a 71 year old male seen and examined. patient's daughter in the room, but does not know history. Patient was not acting confused until last night. Patient usually stays up during the night and sleeps during the day. Failed to mention he is an alcoholic. Patient has sepsis and sepsis order set was used. High risk for infection. Will give him 2 liters of NS bolus. repeat lactic acid. Medical,Surgical,& Family Hx - Social History Frequency of Alcohol Use: Frequently Lives With:: Children Exam - Constitutional Vitals: Period Temp Pulse Resp BP Sys/Stephens Pulse Ox Last 24 Hr 101.1 F-104.0 F 85-100 18-22 117-182/57-82 97-99 - ENT ENT exam: Present: normal exam, normal external ear exam - Neck Neck exam: Absent: lymphadenopathy, thyromegaly - Cardiovascular Cardiovascular exam: Present: tachycardia. Absent: systolic murmur - Neurological Exam Neurological exam: Present: other (grimaces to sternal rub ) Results - Labs CBC & BMP: 06/16/17 16:55 06/16/17 16:55 - Diagnostic Findings Procedure: Chest x-ray: report reviewed by me (basilar atelectasis, ), CT: report reviewed by me (head ct chronic microvascular dz )
[2017-06-16] MEDS ORDERED: ETOMIDATE 20 MG/10 ML VIAL IV ONE (19:08)
[2017-06-16] MEDS ORDERED: ONDANSETRON 4 MG/2 ML VIAL IV PRN (19:48)
[2017-06-16] MEDS ORDERED: ALBUTEROL 2.5 MG/3 ML NEB RESP TX PRN (19:48)
[2017-06-16] MEDS ORDERED: SODIUM CHLORIDE 0.9% 2,000 ML IV ONE (19:48)
[2017-06-16] MEDS ORDERED: LACTULOSE 160 GM/240 ML BOTTLE RECTAL ONE (19:48)
[2017-06-16] MEDS ORDERED: LACTULOSE 160 GM/240 ML BOTTLE RECTAL SCH (21:00)
[2017-06-16] MEDS: LACTULOSE 20 GM/30 ML UDCUP PO SCH (21:34)
[2017-06-16 22:01] LABS: Hepatitis A Ab IgM Quant 0.23 Index; Hepatitis A Ab IgM Result Negative (Negative); Hepatitis B Core IgM Quant 0.12 Index; Hepatitis B Core IgM Result Negative (Negative); Hepatitis B Surface Ag Quant < 0.10 Index; Hepatitis B Surface Ag Result Negative (Negative); Hepatitis C Virus Ab Quant 0.21 Index; Hepatitis C Virus Ab Result Negative (Negative)
[2017-06-16] MEDS: SODIUM CHLORIDE 0.9% 1,000 ML IV SCH (22:01)
[2017-06-16] MEDS: ALBUTEROL/IPRATROPIUM 3 ML NEB RESP TX SCH (23:39)
[2017-06-17] MEDS: ALBUTEROL/IPRATROPIUM 3 ML NEB RESP TX SCH ×6 (02:33→23:35)
[2017-06-17] MEDS: PIPERACILLIN/TAZOBACTAM 3,375 MG in SODIUM CHLORIDE 0.9% 100 ML IV SCH ×3 (03:09→18:16)
[2017-06-17 03:27] LABS: ABG Oxygen Saturation 94.6 % (95-100); ABG PCO2 25.8 MM HG (35-48); ABG PH 7.465 (7.35-7.45); ABG PO2 70.3 MM HG (80-95); ABG TCO2 16.8 MMOL/L (23-27); Allen Test Positive
[2017-06-17 04:40] LABS: INR 1.5; PT Patient Result 15.4 SECS
[2017-06-17 04:46] LABS: Calcium 8.4 MG/DL (8.5-10.1); Osmolality,Calculated 290.8 MOS/KG (273-304); Potassium 3.1 MMOL/L (3.5-5.1)
[2017-06-17 04:50] LABS: Partial Thromboplastin Time 42.5 SECS (0-40)
[2017-06-17] MEDS: SODIUM CHLORIDE 0.9% 1,000 ML IV SCH ×2 (05:48→08:10)
--- NOTE | 2017-06-17 07:34 | XRay Report ---
History is feeding tube placement The Keofeed tube is been placed the tip in the body the stomach. The remainder of the exam is limited by technique Impression: Keofeed tube tip in the body of the stomach PROCEDURE INTERPRETED AT [facility] DEPARTMENT OF RADIOLOGY Final Report Signed by: Dr. Tata Canela
--- NOTE | 2017-06-17 07:36 | XRay Report ---
History is short of breath Comparison 06/16/2017 The heart is enlarged. There is mild upper lobe vascular prominence There is worsening elevation left diaphragm with increasing atelectasis in the left lung base There is mildly increasing diffuse bilateral interstitial prominence impression: 1. Mild increasing left basilar atelectasis 2. Mildly increasing diffuse interstitial infiltrates versus edema PROCEDURE INTERPRETED AT [facility] DEPARTMENT OF RADIOLOGY Final Report Signed by: Dr. Tata Canela
--- NOTE | 2017-06-17 08:34 | Ultrasound Report ---
History is cirrhosis Visualization is limited by bowel gas and the altered mental status the patient The liver is 15.0 cm in length with coarsened echotexture and mild nodularity of liver contours The spleen measures up to 12.2 x 4.7 cm. 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 No renal hydronephrosis seen bilaterally There is [id number] ascites in all 4 quadrants Proximal visualized aorta is normal in size. The remainder of the aorta and IVC are third by bowel gas Visualized pancreatic body is normal in size. Head and tail are obscured No gallstones or biliary ductal dilatation is seen Portal vein is very poorly visualized the but is questionably occluded Impression: 1. Ascites 2. Nodular liver contour suggesting cirrhosis 3. Questionable portal vein occlusion with evidence of splenic varices 4. Limited visualization of midline retroperitoneal structures The Ultrasound images were captured and stored. PROCEDURE INTERPRETED AT [facility] DEPARTMENT OF RADIOLOGY Final Report Signed by: Dr. Tata Canela
[2017-06-17] MEDS ORDERED: PANTOPRAZOLE 40 MG TABLET PO SCH (09:00)
[2017-06-17] MEDS ORDERED: FOLIC ACID 5 MG/1 ML VIAL IV SCH (09:00)
[2017-06-17] MEDS: LACTULOSE 20 GM/30 ML UDCUP PO SCH ×4 (09:08→20:07)
[2017-06-17] MEDS: LANSOPRAZOLE ODT 30 MG TABLET NG SCH (09:08)
[2017-06-17] MEDS: THIAMINE 200 MG/2 ML VIAL IV SCH (09:08)
[2017-06-17] MEDS ORDERED: POTASSIUM CHLORIDE 20 MEQ TABLET PO PRN (10:06)
[2017-06-17] MEDS: POTASSIUM CHLORIDE 20 MEQ/15 ML UDCUP PER TUBE PRN ×4 (10:22→22:12)
[2017-06-17 10:54] LABS: Basophils % 0.2 % (0.0-0.8); Hematocrit 28.5 VOL% (42.0-52.0); Hemoglobin 10.1 GM/DL (14.0-18.0); Immature Granulocytes % 2.2 %; Immature Granulocytes Absolute 0.38 #; Lymphocytes # 2.1 10*3/uL (1.4-4.0); Lymphocytes % 12.2 % (21.2-54.2); Mean Corpuscular HGB Conc 35.4 GM/DL (32-36); Mean Corpuscular Hemoglobin 35 PG (27-34); Mean Corpuscular Volume 98.6 FL (87-102); Mean Platelet Volume 10.5 FL (9.6-12.0); Monocytes # 1.3 10*3/uL (0.11-0.8); Monocytes % 7.7 % (1.7-12.7); Neutrophils # 13.4 10*3/uL (1.4-7.4); Neutrophils % 77.7 % (38.7-73.9); Platelet Count 88 T/CUMM (130-400); Red Blood Count 2.89 MC/CUMM (3.8-5.5); Red Cell Distribution Width 16.8 % (9.3-17.3); White Blood Count 17.3 T/CUMM (4-12)
[2017-06-17 11:25] LABS: Band Neutrophils 8 % (0-10); Lymphocytes 9 % (20-55); Segmented Neutrophils 77 % (50-85); Total Cells Counted 100
[2017-06-17 11:26] LABS: Macrocytosis Slight; Ovalocytes Slight; Platelet Estimate Decreased
[2017-06-17] MEDS ORDERED: FUROSEMIDE 20 MG/2 ML VIAL IV ONE (14:35)
--- NOTE | 2017-06-17 14:38 | Hospitalist Progress Note ---
Assessment and Plan (1) Severe sepsis Status: Acute Assessment and plan: Resolved Hep-Lock fluids continue Zosyn, blood cultures positive for gram- negative rods. Treat for presumptive SBP Current Visit: Yes (2) Alcoholic Status: Acute Assessment and plan: Continue thiamine and folate, and no evidence of agitation from alcohol withdrawal will do Ativan as needed Current Visit: Yes (3) Thrombocytopenia Status: Acute Assessment and plan: due to cirrhosis Current Visit: Yes (4) Metabolic encephalopathy Status: Acute Assessment and plan: lactulose tid schedule, feeding tube Current Visit: Yes (5) Cirrhosis Status: Acute Assessment and plan: confirmed on abdominal us, cont lactulose and rifaximin Current Visit: Yes (6) Aspiration into airway Status: Acute Assessment and plan: feeding tube, strict npo, consult climatology teacher for tube feeding Current Visit: Yes (7) Acute exacerbation of chronic obstructive airways disease Status: Acute Assessment and plan: duoneb, no steroids Current Visit: No (8) Acute on chronic diastolic congestive heart failure Status: Acute Assessment and plan: bnp 505 echo done reading pending, had to HL IVF and give lasix Current Visit: No (9) HTN (hypertension) Status: Chronic Assessment and plan: controlled, low dose coreg Current Visit: No (10) CKD (chronic kidney disease) stage 2, GFR 60-89 ml/min Status: Chronic Assessment and plan: chronic and stable Current Visit: No Hospitalist: Subjective Interval history: Patient is gram-negative rods in his blood cultures. We do not know the source of that. Abdominal ultrasound does not show any abscess. Just cirrhosis. Patient really does not have any ascites of any significant amount to tap. Ammonia levels higher today but he is having very good bowel movements Exam - Constitutional Vitals: Period Temp Pulse Resp BP Sys/Stephens Pulse Ox Last 24 Hr 98.7 F-104.0 F 67-100 11-25 106-182/39-93 95-100 Exam: Heart Rate-[RRR] Lungs-[bilateral crackles] GI-[+bs soft, NT] Ext-[no edema] Neuro confused unable to cooperate with physical exam psych agitated mood and flat affect General [no acute distress] Results - Labs CBC & BMP: 06/17/17 10:33 06/17/17 03:42 Lab Results: I have reviewed the past 24 hour labs Labs: Blood cultures 2 growing gram-negative rods, urine negative, negative for influenza - Diagnostic Findings Procedure: Chest x-ray: report reviewed by me (Pulmonary edema), Ultrasound: report reviewed by me (Abdominal ultrasound shows cirrhosis with ascites)
--- NOTE | 2017-06-17 15:22 | Order Completion Report ---
See report scanned to EMR
[2017-06-17] MEDS ORDERED: GLUCAGON 1 MG VIAL IM PRN (15:35)
[2017-06-17] MEDS ORDERED: DEXTROSE 50% 25 GM/50 ML VIAL IV PRN (15:35)
[2017-06-17] MEDS: ATROPINE 1 % OPH SOLN 5 ML BOTTLE LEFT EYE SCH ×2 (17:12→20:30)
[2017-06-17] MEDS: CARVEDILOL 12.5 MG TABLET PO SCH (17:12)
[2017-06-17] MEDS: INSULIN REGULAR 100 UNIT/ML SUBCUT SCH (18:16)
[2017-06-17] MEDS: RIFAXIMIN 550 MG TABLET PO SCH (20:07)
[2017-06-17] MEDS: LATANOPROST 0.005% OPH SOLN 2.5 ML BOTTLE LEFT EYE SCH (20:29)
[2017-06-18] MEDS: INSULIN REGULAR 100 UNIT/ML SUBCUT SCH ×4 (00:30→21:12)
[2017-06-18] MEDS: POTASSIUM CHLORIDE 20 MEQ/15 ML UDCUP PER TUBE PRN (00:31)
[2017-06-18] MEDS: ALBUTEROL/IPRATROPIUM 3 ML NEB RESP TX SCH ×6 (03:03→23:58)
[2017-06-18] MEDS: PIPERACILLIN/TAZOBACTAM 3,375 MG in SODIUM CHLORIDE 0.9% 100 ML IV SCH ×3 (03:40→21:12)
[2017-06-18 05:05] LABS: Basophils % 0.2 % (0.0-0.8); Eosinophils # 0.1 10*3/uL (0.0-0.87); Eosinophils % 0.4 % (0.00-10.9); Hematocrit 23.9 VOL% (42.0-52.0); Hemoglobin 8.7 GM/DL (14.0-18.0); Immature Granulocytes % 1.8 %; Immature Granulocytes Absolute 0.24 #; Lymphocytes % 14.8 % (21.2-54.2); Mean Corpuscular HGB Conc 36.4 GM/DL (32-36); Mean Corpuscular Hemoglobin 36 PG (27-34); Mean Platelet Volume 10.6 FL (9.6-12.0); Monocytes # 1.2 10*3/uL (0.11-0.8); Monocytes % 9.1 % (1.7-12.7); Neutrophils # 9.8 10*3/uL (1.4-7.4); Neutrophils % 73.7 % (38.7-73.9); Red Blood Count 2.39 MC/CUMM (3.8-5.5); Red Cell Distribution Width 17.4 % (9.3-17.3); White Blood Count 13.2 T/CUMM (4-12)
[2017-06-18 05:21] LABS: Platelet Count 80 T/CUMM (130-400)
[2017-06-18 05:40] LABS: Band Neutrophils 5 % (0-10); Elliptocytes Few; Giant Platelets Few; Hypochromasia 1+; Lymphocytes 13 % (20-55); Platelet Estimate Decreased; Segmented Neutrophils 77 % (50-85); Total Cells Counted 100
[2017-06-18 05:41] LABS: Burr Cells Slight; Macrocytosis Slight
[2017-06-18 05:44] LABS: Albumin 2.1 G/DL (3.4-5.0); Bilirubin,Total 2.5 MG/DL (0.2-1.0); Calcium 7.9 MG/DL (8.5-10.1); Osmolality,Calculated 300.4 MOS/KG (273-304); Potassium 3.8 MMOL/L (3.5-5.1); Total Protein 5.5 G/DL (6.4-8.3)
[2017-06-18 05:45] LABS: Magnesium 1.9 MG/DL (1.8-2.4); Phosphorous 3.1 MG/DL (2.5-4.9); Prealbumin < 3.0 MG/DL (20-40)
[2017-06-18] MEDS: LEVOTHYROXINE 50 MCG TABLET PO SCH (06:18)
--- NOTE | 2017-06-18 07:28 | XRay Report ---
History is short of breath Comparison 06/17/2017 The heart and vessels are enlarged There is mild worsening of diffuse reticulonodular bilateral pulmonary opacities and more focal stranding and mildly confluent densities with worsening obscuration the left diaphragm. Impression: 1. Mild worsening of diffuse interstitial edema 2. Mild worsening of the mildly more focal atelectasis and/or infiltrate the left base PROCEDURE INTERPRETED AT [facility] [place] DEPARTMENT OF RADIOLOGY Final Report Signed by: Dr. Tata Canela
[2017-06-18] MEDS: CARVEDILOL 12.5 MG TABLET PO SCH ×2 (09:29→18:08)
[2017-06-18] MEDS: ATROPINE 1 % OPH SOLN 5 ML BOTTLE LEFT EYE SCH ×4 (09:43→21:13)
[2017-06-18] MEDS: LANSOPRAZOLE ODT 30 MG TABLET NG SCH (09:44)
[2017-06-18] MEDS: THIAMINE 200 MG/2 ML VIAL IV SCH (09:44)
[2017-06-18] MEDS: CLOPIDOGREL 75 MG TABLET PO SCH (09:44)
[2017-06-18] MEDS: RIFAXIMIN 550 MG TABLET PO SCH ×2 (09:44→21:13)
[2017-06-18] MEDS: LACTULOSE 20 GM/30 ML UDCUP PO SCH ×3 (09:44→21:12)
[2017-06-18] MEDS: ASPIRIN CHEW 81 MG TABLET PO SCH (09:44)
[2017-06-18] MEDS: POTASSIUM CHLORIDE 20 MEQ/15 ML UDCUP PER TUBE SCH (09:45)
[2017-06-18] MEDS: FOLIC ACID IV SCH (09:52)
--- NOTE | 2017-06-18 12:11 | Hospitalist Progress Note ---
Assessment and Plan (1) Severe sepsis Status: Acute Assessment and plan: continue Zosyn, blood cultures positive for gram-negative rods. Treat for presumptive SBP Current Visit: Yes (2) Alcoholic Status: Acute Assessment and plan: Continue thiamine and folate Current Visit: Yes (3) Thrombocytopenia Status: Acute Assessment and plan: due to cirrhosis Current Visit: Yes (4) Metabolic encephalopathy Status: Acute Assessment and plan: resolved Current Visit: Yes (5) Cirrhosis Status: Acute Assessment and plan: cont lactulose and rifaximin Current Visit: Yes (6) Aspiration into airway Status: Acute Assessment and plan: resolved Current Visit: Yes (7) Acute exacerbation of chronic obstructive airways disease Status: Acute Assessment and plan: cont duoneb Current Visit: No (8) Acute on chronic diastolic congestive heart failure Status: Acute Assessment and plan: Restarting Lasix. Echocardiogram shows normal EF without diastolic dysfunction. Current Visit: No (9) HTN (hypertension) Status: Chronic Assessment and plan: blood pressure running a little low this morning will hold Coreg Current Visit: No (10) CKD (chronic kidney disease) stage 2, GFR 60-89 ml/min Status: Chronic Assessment and plan: chronic and stable Current Visit: No Hospitalist: Subjective Interval history: Patient more alert today and is eating. His feeding tube has been removed. He is taking all his meds p.o. Will try to remove his Vega today. He wants to get up and get out of the bed. His ammonia level is improved to 43. Exam - Constitutional Vitals: Period Temp Pulse Resp BP Sys/Stephens Pulse Ox Last 24 Hr 97.6 F-99.8 F 63-85 10-27 92-132/44-75 96-100 Exam: Heart Rate-[RRR] Lungs-[clear GI-[+bs soft, NT] Ext-[no edema] Neuro alert and oriented 2 and moving all extremities to command psych slightly agitated mood and flat affect General [no acute distress] Results - Labs CBC & BMP: 06/18/17 04:33 06/18/17 04:33 Lab Results: I have reviewed the past 24 hour labs Labs: Ammonia level is 43, magnesium level is 1.9, - Diagnostic Findings Procedure: Chest x-ray: report reviewed by me (Mild worsening of interstitial edema and atelectasis at the left base), Ultrasound: report reviewed by me ( Echocardiogram shows an EF of 60% with moderate dilated left and right atrium moderate TR with a PA P of 45)
[2017-06-18] MEDS: FUROSEMIDE 20 MG/2 ML VIAL IV SCH (18:05)
[2017-06-18] MEDS: LORazepam 2 MG/1 ML VIAL IV PRN (21:12)
[2017-06-18] MEDS: LATANOPROST 0.005% OPH SOLN 2.5 ML BOTTLE LEFT EYE SCH (21:13)
[2017-06-19] MEDS: INSULIN REGULAR 100 UNIT/ML SUBCUT SCH ×4 (00:54→18:41)
[2017-06-19] MEDS: PIPERACILLIN/TAZOBACTAM 3,375 MG in SODIUM CHLORIDE 0.9% 100 ML IV SCH ×2 (02:08→11:04)
[2017-06-19] MEDS: LORazepam 2 MG/1 ML VIAL IV PRN (02:17)
[2017-06-19] MEDS: ALBUTEROL/IPRATROPIUM 3 ML NEB RESP TX SCH ×5 (03:43→20:05)
[2017-06-19 05:34] LABS: Basophils % 0.3 % (0.0-0.8); Eosinophils # 0.3 10*3/uL (0.0-0.87); Eosinophils % 2.1 % (0.00-10.9); Hematocrit 26.2 VOL% (42.0-52.0); Hemoglobin 9.3 GM/DL (14.0-18.0); Immature Granulocytes Absolute 0.13 #; Lymphocytes # 2.2 10*3/uL (1.4-4.0); Lymphocytes % 17.3 % (21.2-54.2); Mean Corpuscular HGB Conc 35.5 GM/DL (32-36); Mean Corpuscular Hemoglobin 35 PG (27-34); Mean Corpuscular Volume 98.5 FL (87-102); Mean Platelet Volume 10.9 FL (9.6-12.0); Monocytes # 1.3 10*3/uL (0.11-0.8); Monocytes % 10.2 % (1.7-12.7); Neutrophils # 8.6 10*3/uL (1.4-7.4); Neutrophils % 69.1 % (38.7-73.9); Platelet Count 89 T/CUMM (130-400); Red Blood Count 2.66 MC/CUMM (3.8-5.5); Red Cell Distribution Width 17.2 % (9.3-17.3); White Blood Count 12.4 T/CUMM (4-12)
[2017-06-19 05:58] LABS: Band Neutrophils 1 % (0-10); Burr Cells Slight; Elliptocytes Few; Eosinophils 1 % (0-10); Giant Platelets Few; Hypochromasia 1+; Lymphocytes 15 % (20-55); Platelet Estimate Decreased; Segmented Neutrophils 74 % (50-85); Total Cells Counted 100
[2017-06-19 05:59] LABS: Macrocytosis Slight
[2017-06-19 06:03] LABS: Albumin 2.2 G/DL (3.4-5.0); Bilirubin,Total 2.3 MG/DL (0.2-1.0); Calcium 7.9 MG/DL (8.5-10.1); Osmolality,Calculated 293.8 MOS/KG (273-304); Potassium 3.6 MMOL/L (3.5-5.1)
[2017-06-19] MEDS: LEVOTHYROXINE 50 MCG TABLET PO SCH (06:36)
--- NOTE | 2017-06-19 08:10 | XRay Report ---
Portable chest Date: 06/19/2017 Clinical history: Shortness of breath Comparison: 06/18/2017 Technique: Portable AP sitting chest Findings: The heart is smaller in size with calcification in the aortic knob. Apparent skin folds are noted bilaterally. Progressive atelectasis/infiltration at the left lung base with more stable findings at the right lung base. Stable mediastinum and osseous structures. Impression: Progressive atelectasis/infiltration at the left lung base with skinfolds noted bilaterally. PROCEDURE INTERPRETED AT [facility] DEPARTMENT OF RADIOLOGY Final Report Signed by: Dr. Bria Candelaria
[2017-06-19] MEDS: POTASSIUM CHLORIDE 20 MEQ/15 ML UDCUP PER TUBE SCH (10:52)
[2017-06-19] MEDS: LANSOPRAZOLE ODT 30 MG TABLET NG SCH (10:52)
[2017-06-19] MEDS: THIAMINE 200 MG/2 ML VIAL IV SCH (10:59)
[2017-06-19] MEDS: FUROSEMIDE 20 MG/2 ML VIAL IV SCH ×2 (11:08→17:10)
[2017-06-19] MEDS: ATROPINE 1 % OPH SOLN 5 ML BOTTLE LEFT EYE SCH ×4 (14:02→21:44)
--- NOTE | 2017-06-19 14:31 | Hospitalist Progress Note ---
Assessment and Plan (1) Severe sepsis Status: Acute Assessment and plan: Change to Invanz, blood cultures positive ESBL E. coli. Dr. Kidd to see as I have not been able to identify a source. Current Visit: Yes (2) Alcoholic Status: Acute Assessment and plan: Continue thiamine and folate Current Visit: Yes (3) Thrombocytopenia Status: Acute Assessment and plan: due to cirrhosis Current Visit: Yes (4) Metabolic encephalopathy Status: Acute Assessment and plan: worse today Current Visit: Yes (5) Cirrhosis Status: Acute Assessment and plan: cont lactulose and rifaximin, ammonia level 31 today Current Visit: Yes (6) Aspiration into airway Status: Acute Assessment and plan: resolved Current Visit: Yes (7) Acute exacerbation of chronic obstructive airways disease Status: Acute Assessment and plan: cont duoneb Current Visit: No (8) Acute on chronic diastolic congestive heart failure Status: Acute Assessment and plan: cont Lasix. Echocardiogram shows normal EF without diastolic dysfunction. Current Visit: No (9) HTN (hypertension) Status: Chronic Assessment and plan: controlled Current Visit: No (10) CKD (chronic kidney disease) stage 2, GFR 60-89 ml/min Status: Chronic Assessment and plan: chronic and stable Current Visit: No Hospitalist: Subjective Interval history: Patient moving all over the bed today. He will wake up and answer some questions. Daughter at bedside. She has a very poor understanding of his medical problems. Patient will answer questions and will obey nurses when asked him to do things but he still seems very confused. I would like Dr. Kidd to see him today as I do not have a source for his gram-negative rods in his blood. Blood cultures are growing ESBL E. coli. Exam - Constitutional Vitals: Period Temp Pulse Resp BP Sys/Stephens Pulse Ox Last 24 Hr 98.1 F-100.4 F 63-86 16-22 124-152/56-76 95-100 Exam: Heart Rate-[RRR] Lungs-[clear GI-[+bs soft, NT] Ext-[no edema] Neuro alert and oriented 2 and moving all extremities to command psych slightly agitated mood and flat affect General [no acute distress] Results - Labs CBC & BMP: 06/19/17 05:07 06/19/17 05:07 Lab Results: I have reviewed the past 24 hour labs Labs: ESBL E. coli bacteremia. - Diagnostic Findings Procedure: Chest x-ray: report reviewed by me (Left lower lobe infiltrate), Ultrasound: report reviewed by me (ef 60%, pa 45 )
[2017-06-19] MEDS ORDERED: ERTAPENEM 1,000 MG in SODIUM CHLORIDE 0.9% 50 ML IV SCH (15:00)
--- NOTE | 2017-06-19 15:58 | Infectious Disease Consult ---
Assessment and Plan (1) Escherichia coli septicemia Status: Acute Assessment and plan: ESBL E. coli septicemia. No obvious focus of infection but patient is at risk for gram-negative septicemia being cirrhotic, given the portal hypertension and increased risk for translocation of enteric gram negatives from the gut. Recommendations: 1. I agree with the switch from Zosyn to ertapenem, as carbapenems are preferred for ESBL gram-negative infections 2. Follow-up repeat blood cultures from yesterday. Once remains negative, patient will continue antibiotic therapy until 02 July Thank you very much for the consult. I will be out until Friday. Call as needed. Discussed with Dr. David Current Visit: Yes (2) Alcoholic Status: Acute Current Visit: Yes (3) Altered mental status Status: Acute Assessment and plan: Probably from the septicemia, improved per family. Current Visit: Yes (4) Cirrhosis Status: Acute Current Visit: Yes (5) Fever Status: Acute Assessment and plan: Seems this has resolved, no fever since last night. Current Visit: Yes (6) Diabetes Status: Chronic Current Visit: No Qualifiers: Diabetes mellitus type: type 2 History of Present Illness Chief complaint: Bacteremia History of present illness: Mr. Nascimento is a 71 year old male with history of alcohol induced liver cirrhosis presents to the hospital 3 days ago with altered mental state. Blood cultures done came up positive for E. coli in 2 of 2 sets. I am asked to assist with management. Generally patient's mental status is improved per his family and he is able to carry on normal conversations with them. He is also eating normally. He was febrile to 104 on admission with fever curve has come down. No other complaints voiced today. Home Medications Medication Instructions Recorded Confirmed Type Carvedilol [Coreg] 3.125 mg PO BID W/MEALS 02/06/17 06/16/17 History Insulin Aspart [NovoLOG] 3 unit SUBCUT TID W/MEALS 05/30/17 06/16/17 History Latanoprost [Latanoprost 0.005 % 1 drop LEFT EYE BEDTIME 05/30/17 06/16/17 History Oph Soln] Pantoprazole Tab [Protonix Tab] 40 mg PO DAILY 05/30/17 06/16/17 History Spironolactone [Aldactone] 50 mg PO BEDTIME 05/30/17 06/16/17 History Thiamine Tab [Vitamin B1 Tab] 100 mg PO DAILY 05/30/17 06/16/17 History hydroCHLOROthiazide 25 mg PO DAILY 05/30/17 06/16/17 History [Hydrochlorothiazide] Aspirin Chew Tab 81 mg PO DAILY tablet 06/04/17 06/16/17 Rx Atropine 1 % Oph Soln [Isopto 1 drop LEFT EYE QID bottle 06/04/17 06/16/17 Rx Atropine 1%] Calcium (Citr)/Vit D 200-125 1 tablet PO BID tablet 06/04/17 06/16/17 Rx [Citracal + D] Clopidogrel [Plavix] 75 mg PO DAILY tablet 06/04/17 06/16/17 Rx Furosemide Tab [Lasix Tab] 40 mg PO BID DIURETIC tablet 06/04/17 06/16/17 Rx Insulin Glargine [Lantus] 5 unit SUBCUT BEDTIME unit 06/04/17 06/16/17 Rx Lactulose Liquid [Chronulac] 20 gm PO TID #30 unit 06/04/17 06/16/17 Rx Levothyroxine Tab [Synthroid Tab] 50 mcg PO DAILY@0700 #30 tablet 06/04/1706/16 Rx Multivitamin (Berocca) [Berocca] 1 tablet PO DAILY tablet 06/04/17 06/16/17 Rx Rifaximin [Xifaxan] 550 mg PO BID #60 tablet 06/04/17 06/16/17 Rx Tamsulosin [Flomax] 0.4 mg PO BEDTIME capsule 06/04/17 06/16/17 Rx Allergies Allergy/AdvReac Type Severity Reaction Status Date / Time No Known Allergies Allergy Verified 02/06/17 11:35 12 point system: reviewed and no additional remarkable complaints except as stated (Per HPI) Medical,Surgical,& Family Hx - Medical History Cardio: History of: CHF, CAD, Hypertension, [place] (2) Psychological: History of: Psychiatric/Substance Abuse Tx (alcohol abuse) Neurology: No history of: Seizures HEENT: History of: 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) Endocrine: History of: Diabetes Mellitus (NIDDM), Dyslipidemia, Thyroid Disorder Respiratory: History of: COPD, Obstructive Sleep Apnea, Respiratory Problems ( chf) Genitourinary: History of: Prostate Problems Gastrointestinal: History of: GERD, Liver Problems - Surgical History Cardiac Surgeries: Sugical HX of: Cardiac Catheterization (X 2 STENTS) Thoracic Surgeries: Patient denies;: Lobectomy Abdominal Surgeries: Patient denies: Abdominal Surgery Reproductive Surgeries: Patient denies;: Genitourinary Surgery Orthopedic Surgeries: Surgical HX of;: Orthopedic Surgery - Family History Family History: Reports;: Family Diabetes, Family Heart Disease, Family Hypertension - Social History Smoking Status: Current every day smoker Frequency of Alcohol Use: Frequently Type of Drug Use: Unknown Infectious Disease Exam H&P - Constitutional Vitals: Vital Signs Temp Pulse Resp BP Pulse Ox 98.1 F 69 16 144/73 100 06/19/17 11:25 06/19/17 14:32 06/19/17 14:32 06/19/17 11:25 06/19/17 14:32 Intake and Output 06/18/17 06/19/17 06/19/17 23:59 07:59 15:59 Intake Total 460 / 460 200 / 200 120 / 120 Output Total 1000 / 1000 Balance -540 / -540 200 / 200 120 / 120 Intake: IV 100 / 100 200 / 200 Zosyn 3,375 mg In Ns 100 100 / 100 200 / 200 ml @ 25 mls/hr IV Q8H [facility] Rx#:[id number] Oral 360 / 360 120 / 120 Output: Urine 1000 / 1000 Other: Voiding Method Indwelling Catheter Indwelling Catheter # Voids 650 # Bowel Movements 0 Weight 76.983 kg Patient Weight 06/19/17 23:59 Weight 76.983 kg Exam: General: Patient relatively comfortable but chronically ill looking HEENT: Mucous membranes pink and moist, anicteric acyanotic, CHARLES, no oral exudates Neck: Supple, no thyroid gland enlargement Respiratory system: Breath sounds vesicular, no crepitations or wheezes Cardiovascular: Normal S1 and S2, no murmurs appreciated Abdomen: Normal bowel sounds, soft nontender throughout, no organomegaly or mass Genitourinary: No suprapubic pain or bladder distention Extremities: Chronic bilateral lower extremity edema, worse on right than left Skin: No rash, but does still have both legs are hypopigmented Reports - Labs CBC & BMP: 06/19/17 05:07 06/19/17 05:07 Labs: Laboratory Results - last 24 hr 06/18/17 06/19/17 06/19/17 19:16 00:51 05:07 WBC 12.4 H RBC 2.66 L Hgb 9.3 L Hct 26.2 L MCV 98.5 MCH 35 H MCHC 35.5 RDW 17.2 Plt Count 89 L MPV 10.9 Neut % (Auto) 69.1 Lymph % (Auto) 17.3 L [place] % (Auto) 10.2 Eos % (Auto) 2.1 Baso % (Auto) 0.3 Neut # (Auto) 8.6 H Lymph # (Auto) 2.2 [place] # (Auto) 1.3 H Eos # (Auto) 0.3 Baso # (Auto) 0.0 Total Counted 100 Immature Gran % 1.0 Nucleated RBC % 0.0 Immature Gran # 0.13 Segmented Neutrophils 74 Band Neutrophils 1 Lymphocytes 15 L Monocytes 9 Eosinophils 1 Nucleated RBCs # 0.00 Platelet Estimate Decreased Giant Platelets Few Immature Plt Fraction 2.9 Hypochromasia 1+ Macrocytosis Slight [place] Cells Slight Elliptocytes Few Morphology Comment Sodium Potassium Chloride Carbon Dioxide Anion Gap BUN Creatinine GFR Calculation BUN/Creatinine Ratio Glucose POC Glucose 164 H 129 H Calculated Osmolality Calcium Total Bilirubin AST ALT Alkaline Phosphatase Ammonia Total Protein Albumin Globulin Albumin/Globulin Ratio 06/19/17 06/19/17 06/19/17 05:07 05:07 05:58 WBC RBC Hgb Hct MCV MCH MCHC RDW Plt Count MPV Neut % (Auto) Lymph % (Auto) [place] % (Auto) Eos % (Auto) Baso % (Auto) Neut # (Auto) Lymph # (Auto) [place] # (Auto) Eos # (Auto) Baso # (Auto) Total Counted Immature Gran % Nucleated RBC % Immature Gran # Segmented Neutrophils Band Neutrophils Lymphocytes Monocytes Eosinophils Nucleated RBCs # Platelet Estimate Giant Platelets Immature Plt Fraction Hypochromasia Macrocytosis [place] Cells Elliptocytes Morphology Comment Sodium 144 Potassium 3.6 Chloride 114 H Carbon Dioxide 24 Anion Gap 9.6 BUN 28 H Creatinine 1.20 GFR Calculation 66 BUN/Creatinine Ratio 23.00 H Glucose 140 H POC Glucose 159 H Calculated Osmolality 293.8 Calcium 7.9 L Total Bilirubin 2.30 H AST 35 ALT 19 Alkaline Phosphatase 127 H Ammonia 31 Total Protein 6.0 L Albumin 2.2 L Globulin 3.8 H Albumin/Globulin Ratio 0.5 L 06/19/17 06/19/17 06:46 10:47 WBC RBC Hgb Hct MCV MCH MCHC RDW Plt Count MPV Neut % (Auto) Lymph % (Auto) [place] % (Auto) Eos % (Auto) Baso % (Auto) Neut # (Auto) Lymph # (Auto) [place] # (Auto) Eos # (Auto) Baso # (Auto) Total Counted Immature Gran % Nucleated RBC % Immature Gran # Segmented Neutrophils Band Neutrophils Lymphocytes Monocytes Eosinophils Nucleated RBCs # Platelet Estimate Giant Platelets Immature Plt Fraction Hypochromasia Macrocytosis [place] Cells Elliptocytes Morphology Comment Sodium Potassium Chloride Carbon Dioxide Anion Gap BUN Creatinine GFR Calculation BUN/Creatinine Ratio Glucose POC Glucose 141 H 161 H Calculated Osmolality Calcium Total Bilirubin AST ALT Alkaline Phosphatase Ammonia Total Protein Albumin Globulin Albumin/Globulin Ratio - Reports Microbiology: Microbiology 06/16/17 18:10 Blood Culture - Final Blood Escherichia coli ESBL 06/16/17 17:19 Blood Culture - Final Blood Escherichia coli ESBL 06/18/17 04:33 Blood Culture - Preliminary Blood No growth at 1 day 06/18/17 04:33 Blood Culture - Preliminary Blood No growth at 1 day - Diagnostic Findings Procedure: Chest x-ray: report reviewed by me (No acute consolidation), Ultrasound: report reviewed by me (Abdominal ultrasound showed nodular ascites)
[2017-06-19] MEDS: FOLIC ACID IV SCH ×2 (16:10→17:13)
[2017-06-19] MEDS: LACTULOSE 20 GM/30 ML UDCUP PO SCH ×3 (16:12→21:44)
[2017-06-19] MEDS: CARVEDILOL 12.5 MG TABLET PO SCH ×3 (17:03→21:47)
[2017-06-19] MEDS: ASPIRIN CHEW 81 MG TABLET PO SCH (17:04)
[2017-06-19] MEDS: CLOPIDOGREL 75 MG TABLET PO SCH (17:04)
[2017-06-19] MEDS: RIFAXIMIN 550 MG TABLET PO SCH ×2 (17:05→21:44)
[2017-06-19] MEDS: LATANOPROST 0.005% OPH SOLN 2.5 ML BOTTLE LEFT EYE SCH (21:44)
[2017-06-20] MEDS: ALBUTEROL/IPRATROPIUM 3 ML NEB RESP TX SCH ×4 (00:30→12:14)
[2017-06-20] MEDS: INSULIN REGULAR 100 UNIT/ML SUBCUT SCH ×2 (00:46→06:30)
[2017-06-20 05:52] LABS: Basophils % 0.4 % (0.0-0.8); Eosinophils # 0.3 10*3/uL (0.0-0.87); Eosinophils % 3.8 % (0.00-10.9); Hematocrit 27.1 VOL% (42.0-52.0); Hemoglobin 9.6 GM/DL (14.0-18.0); Immature Granulocytes Absolute 0.08 #; Lymphocytes # 1.9 10*3/uL (1.4-4.0); Lymphocytes % 23.8 % (21.2-54.2); Mean Corpuscular HGB Conc 35.4 GM/DL (32-36); Mean Corpuscular Hemoglobin 35 PG (27-34); Mean Corpuscular Volume 98.9 FL (87-102); Monocytes # 1.2 10*3/uL (0.11-0.8); Monocytes % 15.6 % (1.7-12.7); Neutrophils # 4.4 10*3/uL (1.4-7.4); Neutrophils % 55.4 % (38.7-73.9); Platelet Count 101 T/CUMM (130-400); Red Blood Count 2.74 MC/CUMM (3.8-5.5); Red Cell Distribution Width 17.3 % (9.3-17.3); White Blood Count 7.9 T/CUMM (4-12)
[2017-06-20 06:25] LABS: Albumin 2.3 G/DL (3.4-5.0); Calcium 8.2 MG/DL (8.5-10.1); Osmolality,Calculated 294.6 MOS/KG (273-304); Potassium 3.8 MMOL/L (3.5-5.1); Total Protein 6.2 G/DL (6.4-8.3)
[2017-06-20] MEDS: LEVOTHYROXINE 50 MCG TABLET PO SCH (06:40)
[2017-06-20 07:57] LABS: Burr Cells Slight; Eosinophils 2 % (0-10); Hypochromasia Slight; Lymphocytes 21 % (20-55); Platelet Estimate Decreased; Segmented Neutrophils 63 % (50-85); Total Cells Counted 100
--- NOTE | 2017-06-20 09:11 | Post Interventional Procedure ---
Pre-op diagnosis: E coli septicemia Post-op diagnosis: same Procedure: PICC placement Contrast: none Flouroscopy: 0.2 min Radiologist: Charles Funez Anesthesia: local Specimens: none sent Estimated blood loss: none Complications: none Condition: stable Description/Findings: left arm 5 Fr dual lumen power picc placement done and ready for use Assessment and Plan - Time spent with patient Time spent with patient: Less than 30 minutes
--- NOTE | 2017-06-20 09:15 | Interventional Radiology Rpt ---
IR PICC line insertion, US guide vascular access IR PICC Placement Peripherally-inserted central catheter (PICC) placement using ultrasound and fluoroscopic guidance Ultrasound of the left upper extremity Clinical Information: 71-year-old male with gram-negative septicemia. PICC line is requested for long-term intravenous antibiotic administration. Physician: Dr. Funez Procedure: The patient was advised of the benefits, risks, and alternatives of the procedure and informed consent was obtained. A time out was performed with verification of the patient's name, MRN, site of procedure, and type of procedure to be performed. The patient was positioned in the supine position on the angiographic table. The site was prepped and draped in the usual sterile fashion. Additionally, maximal sterile barrier technique was employed for the procedure. A blueprint processor radiograph reveals no relevant abnormality. Ultrasound examination of the left arm demonstrates patent and compressible brachial and basilic veins. The left arm was prepped and draped in the usual sterile fashion. The left basilic vein was again identified. Using ultrasound guidance, a 21 gauge needle was used to access the vein. A permanent ultrasound recording of vascular access was obtained for the patient's record. A 0.018" cope wire was then advanced into the vein. The needle was exchanged for a 5 Cypriot peel-away sheath. A 5 [place]riot double lumen Bard Solo PICC catheter was measured and trimmed to the 39 cm zhane. The PICC line was advanced through the sheath and into the central circulation. The catheter tip was positioned at the cavo-atrial junction. The peel-away sheath was then removed. At the conclusion of the procedure, the catheter was secured in place using a Stat-Lock device. A sterile dressing was applied. The lumens aspirate and flush freely. The catheter is ready for immediate use. The patient tolerated the procedure well and was returned to the PRU in stable condition. EBL: < 5 mL. Complications: None. Fluoroscopy time: 0.2 minutes Total number of images for this study: 3 Conclusion: Successful placement of a 5 Cypriot double lumen Bard Solo power injectable PICC via the left basilic vein. The catheter is ready for immediate use. PROCEDURE INTERPRETED AT [facility] DEPARTMENT OF RADIOLOGY Final Report Signed by: Charles Funez
[2017-06-20] MEDS: CARVEDILOL 12.5 MG TABLET PO SCH (10:38)
[2017-06-20] MEDS: LACTULOSE 20 GM/30 ML UDCUP PO SCH (10:38)
[2017-06-20] MEDS: THIAMINE 200 MG/2 ML VIAL IV SCH (10:38)
[2017-06-20] MEDS: POTASSIUM CHLORIDE 20 MEQ/15 ML UDCUP PER TUBE SCH (10:39)
[2017-06-20] MEDS: FUROSEMIDE 20 MG/2 ML VIAL IV SCH (10:39)
[2017-06-20] MEDS: ATROPINE 1 % OPH SOLN 5 ML BOTTLE LEFT EYE SCH (10:40)
[2017-06-20] MEDS: RIFAXIMIN 550 MG TABLET PO SCH (10:40)
[2017-06-20] MEDS: LANSOPRAZOLE ODT 30 MG TABLET NG SCH (10:40)
[2017-06-20] MEDS: CLOPIDOGREL 75 MG TABLET PO SCH (10:40)
[2017-06-20] MEDS: ASPIRIN CHEW 81 MG TABLET PO SCH (10:41)
[2017-06-20 11:02] VITALS: BP 146/70
[2017-06-20] MEDS: FOLIC ACID IV SCH (11:03)
--- NOTE | 2017-06-20 11:45 | Discharge Summary ---
Hospital Course - Hospital Course Hospital Course: Mr. Nascimento is a 71 year old male with a history of hypertension, CHF, ND, diabetes, alcoholism, liver cirrhosis, hyperlipidemia, COPD, obstructive sleep apnea, alcohol and tobacco abuse presents to the ED for further evaluation of altered mental status. WBC of 14.9 and h&h of 11.5/31.4. ESR was 95 with a lactic acid of 2.5. AST and ALT were 38 and 22 respectively. Pt. also had an ammonia level of 107. UA was negative for infection. Patient has known cirrhosis. Patient was initially placed on Zosyn. Blood cultures 2 grew out ESBL E. coli. I have switched over to Invanz. He received a PICC line today. His repeat blood cultures are negative. He will be sent over to [facility] to complete his IV antibiotics through July 02. Patient will need PT and OT. He does have severe cirrhosis and his ammonia level improved with lactulose. He still does not seem quite normal but I do not know what his baseline is. He is afebrile. Asked Dr. Kidd to see him regarding source of this infection. She sees a lot of translocation infections due to portal hypertension in patients with cirrhosis. Abdominal ultrasound showed a small amount of ascites and nodular liver suggestive of cirrhosis. 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 Patient is anemic but it is stable. Patient will be transferred to [facility] for further care and treatment. His white count has returned to normal at 7.9. - Time spent with patient Time with patient DS: Greater than 30 minutes (50 min) Diagnosis - Discharge Diagnosis (1) Severe sepsis Status: Acute (2) Alcoholic Status: Acute (3) Thrombocytopenia Status: Acute (4) Metabolic encephalopathy Status: Acute (5) Cirrhosis Status: Acute (6) Aspiration into airway Status: Acute (7) Acute exacerbation of chronic obstructive airways disease Status: Acute (8) Acute on chronic diastolic congestive heart failure Status: Acute (9) HTN (hypertension) Status: Chronic (10) CKD (chronic kidney disease) stage 2, GFR 60-89 ml/min Status: Chronic Specialty Discharge - Follow Up or Referrals Follow up with: Angie Cervantes MD [Physician] - (as needed) Discharge Plan - Discharge Data Disposition: Disch/Xfer-[facility] Term Hos Condition at Discharge: Stable Discharge Diet: diabetic diet Activity: resume usual activities as tolerated Hygiene: no restrictions Weight Bearing at Discharge: full weight bearing - Discharge Medications New Ertapenem [INVanz] 1,000 mg IV Q24H vial Folic Acid Tab 1 mg PO DAILY #30 tablet Furosemide Inj [Lasix Inj] 20 mg IV BID DIURETIC vial Heparin Lock Flush 50 units IV PRN PRN syringe PRN Reason: central line lock Insulin Regular [HumuLIN R] See Protocol SUBCUT Q6HR unit Ondansetron Inj [Zofran Inj] 4 mg IV Q4H PRN vial PRN Reason: Nausea Potassium Chloride Liquid 40 meq PER TUBE DAILY Dextrose 50% [D50] 25 gm IV PRN PRN vial PRN Reason: Hypoglycemia with IV access Glucagon 1 mg IM PRN PRN vial PRN Reason: Hypoglycemia w/o IV access Continue Carvedilol [Coreg] 3.125 mg PO BID W/MEALS Latanoprost [Latanoprost 0.005 % Oph Soln] 1 drop LEFT EYE BEDTIME Thiamine Tab [Vitamin B1 Tab] 100 mg PO DAILY Pantoprazole Tab [Protonix Tab] 40 mg PO DAILY Aspirin Chew Tab 81 mg PO DAILY tablet Atropine 1 % Oph Soln [Isopto Atropine 1%] 1 drop LEFT EYE QID bottle Clopidogrel [Plavix] 75 mg PO DAILY tablet Lactulose Liquid [Chronulac] 20 gm PO TID #30 unit Levothyroxine Tab [Synthroid Tab] 50 mcg PO DAILY@0700 #30 tablet Rifaximin [Xifaxan] 550 mg PO BID #60 tablet Tamsulosin [Flomax] 0.4 mg PO BEDTIME capsule Discontinued Spironolactone [Aldactone] 50 mg PO BEDTIME Calcium (Citr)/Vit D 200-125 [Citracal + D] 1 tablet PO BID tablet Insulin Glargine [Lantus] 5 unit SUBCUT BEDTIME unit hydroCHLOROthiazide [Hydrochlorothiazide] 25 mg PO DAILY Insulin Aspart [NovoLOG] 3 unit SUBCUT TID W/MEALS Furosemide Tab [Lasix Tab] 40 mg PO BID DIURETIC tablet Multivitamin (Berocca) [Berocca] 1 tablet PO DAILY tablet - Follow Up or Referral Follow Up: Angie Cervantes MD [Physician] - (as needed) - Forms/Instructions Instructions: Sepsis in Children (GEN), Food Poisoning (GEN) Exam - Constitutional Vitals: Period Temp Pulse Resp BP Sys/Stephens Pulse Ox Last 24 Hr 97.8 F-99.1 F 63-72 16-20 128-154/60-78 94-100 General appearance: no acute distress, under weight - Respiratory Respiratory exam: Present: clear to auscultation bilaterally. Absent: rhonchi, wheezes - Cardiovascular Cardiovascular exam: Present: regular rate and rhythm, systolic murmur - GI/Abdominal GI/Abdominal exam: Present: normal bowel sounds, soft - Extremities Exam Extremities exam: Present: normal inspection, normal capillary refill - Neurological Exam Neurological exam: Present: alert - Psychiatric Psychiatric exam: Present: normal affect, normal mood Discharge Results Procedures and tests throughout hospitalization: Pending Orders 06/18/17 04:33 Blood Culture IN AM 06/21/17 04:00 Ammonia IN AM CMP [Comprehensive Metabolic Panel] IN AM Comp Blood Count Auto Diff IN AM 06/22/17 04:00 CMP [Comprehensive Metabolic Panel] IN AM Comp Blood Count Auto Diff IN AM 06/23/17 04:00 CMP [Comprehensive Metabolic Panel] IN AM Labs on day of discharge: Labs from last 24 hours 06/20/17 06/20/17 06/20/17 10:49 05:22 04:56 WBC RBC Hgb Hct MCV MCH MCHC RDW Plt Count MPV Neut % (Auto) Lymph % (Auto) [place] % (Auto) Eos % (Auto) Baso % (Auto) Neut # (Auto) Lymph # (Auto) [place] # (Auto) Eos # (Auto) Baso # (Auto) Total Counted Immature Gran % Nucleated RBC % Immature Gran # Segmented Neutrophils Lymphocytes Monocytes Eosinophils Nucleated RBCs # Platelet Estimate Immature Plt Fraction Hypochromasia [place] Cells Sodium 146 H Potassium 3.8 Chloride 114 H Carbon Dioxide 25 Anion Gap 10.8 BUN 23 H Creatinine 1.10 GFR Calculation 73 BUN/Creatinine Ratio 20.00 Glucose 117 H POC Glucose 173 H 134 H Calculated Osmolality 294.6 Calcium 8.2 L Total Bilirubin 2.00 H AST 34 ALT 21 Alkaline Phosphatase 133 H Ammonia Total Protein 6.2 L Albumin 2.3 L Globulin 3.9 H Albumin/Globulin Ratio 0.5 L 06/20/17 06/20/17 06/20/17 04:56 04:56 00:19 WBC 7.9 D RBC 2.74 L Hgb 9.6 L Hct 27.1 L MCV 98.9 MCH 35 H MCHC 35.4 RDW 17.3 Plt Count 101 L MPV 11.0 Neut % (Auto) 55.4 Lymph % (Auto) 23.8 [place] % (Auto) 15.6 H Eos % (Auto) 3.8 Baso % (Auto) 0.4 Neut # (Auto) 4.4 Lymph # (Auto) 1.9 [place] # (Auto) 1.2 H Eos # (Auto) 0.3 Baso # (Auto) 0.0 Total Counted 100 Immature Gran % 1.0 Nucleated RBC % 0.0 Immature Gran # 0.08 Segmented Neutrophils 63 Lymphocytes 21 Monocytes 14 Eosinophils 2 Nucleated RBCs # 0.00 Platelet Estimate Decreased Immature Plt Fraction 0.0 Hypochromasia Slight [place] Cells Slight Sodium Potassium Chloride Carbon Dioxide Anion Gap BUN Creatinine GFR Calculation BUN/Creatinine Ratio Glucose POC Glucose 141 H Calculated Osmolality Calcium Total Bilirubin AST ALT Alkaline Phosphatase Ammonia 67 H Total Protein Albumin Globulin Albumin/Globulin Ratio 06/19/17 18:05 WBC RBC Hgb Hct MCV MCH MCHC RDW Plt Count MPV Neut % (Auto) Lymph % (Auto) [place] % (Auto) Eos % (Auto) Baso % (Auto) Neut # (Auto) Lymph # (Auto) [place] # (Auto) Eos # (Auto) Baso # (Auto) Total Counted Immature Gran % Nucleated RBC % Immature Gran # Segmented Neutrophils Lymphocytes Monocytes Eosinophils Nucleated RBCs # Platelet Estimate Immature Plt Fraction Hypochromasia [place] Cells Sodium Potassium Chloride Carbon Dioxide Anion Gap BUN Creatinine GFR Calculation BUN/Creatinine Ratio Glucose POC Glucose 126 H Calculated Osmolality Calcium Total Bilirubin AST ALT Alkaline Phosphatase Ammonia Total Protein Albumin Globulin Albumin/Globulin Ratio Preliminary micro results at discharge 06/18/17 04:33 Blood Culture - Preliminary Blood No growth at 1 day 06/18/17 04:33 Blood Culture - Preliminary Blood No growth at 1 day DS: Provider Date of admission: 06/16/17 17:58 Primary care physician: Mike Hull MD Attending physician on admission: Pari David MD Consults: 06/16/17 20:11 Consult to Dietitian [CONS] Routine Reason for Dietitian: Dietary Consult Consult Comment: decreased appetite/weight loss 06/17/17 14:33 Consult to Dietitian [CONS] Routine Reason for Dietitian: TF-Initiate/Manage Consult Comment: diabetic 06/19/17 11:43 Consult to Physician [CONS] Routine Comment: ?source for bacteremia Consulting Provider: Angie Cervantes Consulting Provider Notified: Yes When should Consulting Provider be notified: Now Person Notified: parmjit grimm Date Notified: 06/19/17 Time Notified: 11:48 Discharging clinician: Pari David MD
== END 2017-06-20 14:15 | disposition hospice, home (50) | DRG 871 ==
LOC: EDBD → EDUNIT# → N.ED 16:21 → N.EDINP 17:58 → N.ICU 19:07 → N.3E 06-18 11:29
PROVIDERS: ADMIT Internal Medicine; ATTEND Internal Medicine

== ENCOUNTER 2017-07-13 10:42 | Inpatient (IN) ==
[2017-07-13] MEDS ORDERED: SODIUM CHLORIDE 0.9% 1,000 ML IV STA (11:00)
[2017-07-13] MEDS ORDERED: THIAMINE 200 MG/2 ML VIAL IV STA (11:00)
[2017-07-13 11:09] LABS: Basophils % 0.4 % (0.0-0.8); Eosinophils # 0.3 10*3/uL (0.0-0.87); Eosinophils % 6.3 % (0.00-10.9); Hematocrit 27.8 VOL% (42.0-52.0); Hemoglobin 9.9 GM/DL (14.0-18.0); Immature Granulocytes % 0.2 %; Immature Granulocytes Absolute 0.01 #; Lymphocytes % 39.7 % (21.2-54.2); Mean Corpuscular HGB Conc 35.6 GM/DL (32-36); Mean Corpuscular Hemoglobin 36 PG (27-34); Mean Corpuscular Volume 101.5 FL (87-102); Mean Platelet Volume 10.7 FL (9.6-12.0); Monocytes # 0.5 10*3/uL (0.11-0.8); Monocytes % 9.8 % (1.7-12.7); Neutrophils # 2.2 10*3/uL (1.4-7.4); Neutrophils % 43.6 % (38.7-73.9); Platelet Count 101 T/CUMM (130-400); Red Blood Count 2.74 MC/CUMM (3.8-5.5); Red Cell Distribution Width 16.3 % (9.3-17.3); White Blood Count 5.1 T/CUMM (4-12)
[2017-07-13] MEDS ORDERED: THIAMINE 200 MG/2 ML VIAL ONE (11:29)
[2017-07-13 11:33] LABS: Ammonia 221 UMOL/L (11-32)
[2017-07-13 11:37] LABS: Alanine Aminotransferase 25 U/L (16-61); Albumin 1.9 G/DL (3.4-5.0); Alkaline Phosphatase 233 U/L (45-117); Aspartate Amino Transferase 42 U/L (0-37); Blood Urea Nitrogen 15 MG/DL (7-18); Glucose 122 MG/DL (74-106); Magnesium 1.9 MG/DL (1.8-2.4); Osmolality,Calculated 289.7 MOS/KG (273-304); Potassium 4.2 MMOL/L (3.5-5.1); Sodium 145 MMOL/L (136-145); Total Protein 6.6 G/DL (6.4-8.3)
[2017-07-13 11:44] LABS: Apearance,Urine CLEAR (Clear); Bilirubin,Urine Negative (Negative); Blood, Urine Small mg/dL (Negative); Glucose,Urine (UA) Negative (Negative); Hyaline Casts,Urine 2 /LPF (0-3); Ketones,Urine Negative (Negative); Mucus,Urine Occasional /LPF (Occasional); Nitrite,Urine Negative (Negative); Protein,Urine 100 MG/DL; RBC,Urine 2 /HPF (0-4); Squamous Epithelial Cell,Urine Occasional /HPF (0-10); Urine Color Yellow (Yellow); Urine Specific Gravity 1.009 (1.001-1.035); WBC,Urine 1 /HPF (0-6)
[2017-07-13] MEDS ORDERED: SODIUM CHLORIDE 0.9% 1,000 ML IV SCH (13:00)
[2017-07-13] MEDS ORDERED: LACTULOSE 160 GM/240 ML BOTTLE RECTAL PRN (14:00)
[2017-07-13] MEDS ORDERED: LORazepam 2 MG/1 ML VIAL IV PRN (14:43)
[2017-07-13 15:29] LABS: ABG Base Excess -1.8 MMOL/L (-2.5-2.5); ABG HCO3 22.9 MMOL/L (20-26); ABG Oxygen Saturation 98.6 % (95-100); ABG PCO2 33.4 MM HG (35-48); ABG PH 7.427 (7.35-7.45); ABG TCO2 20.2 MMOL/L (23-27)
[2017-07-13] MEDS: SODIUM CHLORIDE 0.45% 1,000 ML IV SCH (16:07)
[2017-07-13] MEDS: ATROPINE 1 % OPH SOLN 5 ML BOTTLE LEFT EYE SCH ×2 (17:48→21:57)
[2017-07-13] MEDS: FOLIC ACID 5 MG/1 ML VIAL IV SCH (18:14)
[2017-07-13] MEDS ORDERED: hydrALAZINE 20 MG/1 ML VIAL IV PRN (20:43)
[2017-07-13] MEDS: LATANOPROST 0.005% OPH SOLN 2.5 ML BOTTLE LEFT EYE SCH (21:57)
[2017-07-14 04:04] LABS: Basophils % 0.6 % (0.0-0.8); Eosinophils # 0.3 10*3/uL (0.0-0.87); Eosinophils % 4.8 % (0.00-10.9); Hematocrit 29.5 VOL% (42.0-52.0); Hemoglobin 10.2 GM/DL (14.0-18.0); Immature Granulocytes % 0.3 %; Immature Granulocytes Absolute 0.02 #; Lymphocytes % 28.4 % (21.2-54.2); Mean Corpuscular HGB Conc 34.6 GM/DL (32-36); Mean Corpuscular Hemoglobin 35 PG (27-34); Mean Corpuscular Volume 102.4 FL (87-102); Mean Platelet Volume 10.8 FL (9.6-12.0); Monocytes # 0.8 10*3/uL (0.11-0.8); Monocytes % 10.8 % (1.7-12.7); Neutrophils # 3.9 10*3/uL (1.4-7.4); Neutrophils % 55.1 % (38.7-73.9); Platelet Count 101 T/CUMM (130-400); Red Blood Count 2.88 MC/CUMM (3.8-5.5); Red Cell Distribution Width 16.3 % (9.3-17.3); White Blood Count 7.1 T/CUMM (4-12)
[2017-07-14] MEDS: SODIUM CHLORIDE 0.45% 1,000 ML IV SCH (04:20)
[2017-07-14 04:41] LABS: Albumin 1.8 G/DL (3.4-5.0); Bilirubin,Total 1.8 MG/DL (0.2-1.0); Calcium 7.9 MG/DL (8.5-10.1); Hypochromasia 1+; Magnesium 1.8 MG/DL (1.8-2.4); Total Protein 5.9 G/DL (6.4-8.3)
[2017-07-14 04:42] LABS: Macrocytosis Slight; Osmolality,Calculated 294.3 MOS/KG (273-304); Ovalocytes Slight; Platelet Estimate Decreased; Potassium 3.8 MMOL/L (3.5-5.1)
[2017-07-14] MEDS ORDERED: LEVOTHYROXINE 100 MCG VIAL IV SCH (07:00)
[2017-07-14] MEDS ORDERED: LACTULOSE 160 GM/240 ML BOTTLE RECTAL SCH (08:00)
[2017-07-14] MEDS: ATROPINE 1 % OPH SOLN 5 ML BOTTLE LEFT EYE SCH ×4 (08:52→21:38)
[2017-07-14] MEDS: THIAMINE 200 MG/2 ML VIAL IV SCH (09:16)
[2017-07-14] MEDS: LACTULOSE 20 GM/30 ML UDCUP PO SCH ×4 (09:16→21:38)
[2017-07-14] MEDS: FOLIC ACID 5 MG/1 ML VIAL IV SCH (09:27)
[2017-07-14] MEDS: DEXTROSE 5% 1,000 ML IV SCH (12:09)
[2017-07-14] MEDS: FOLIC ACID INJ 1 MG in SYRINGE 1 EACH IV SCH (12:10)
[2017-07-14] MEDS: LOSARTAN 25 MG TABLET PO SCH (12:10)
[2017-07-14] MEDS: ASPIRIN CHEW 81 MG TABLET PO SCH (17:14)
[2017-07-14] MEDS: TAMSULOSIN 0.4 MG CAPSULE PO SCH (21:37)
[2017-07-14] MEDS: RIFAXIMIN 550 MG TABLET PO SCH (21:37)
[2017-07-14] MEDS: LATANOPROST 0.005% OPH SOLN 2.5 ML BOTTLE LEFT EYE SCH (21:38)
[2017-07-15] MEDS: LACTULOSE 20 GM/30 ML UDCUP PO SCH ×6 (01:13→21:32)
[2017-07-15] MEDS: DEXTROSE 5% 1,000 ML IV SCH ×2 (01:45→15:51)
[2017-07-15] MEDS ORDERED: INFLUENZA VIRUS VACCINE 0.5 ML SYRINGE IM ONE (09:00)
[2017-07-15 09:54] LABS: Albumin 1.7 G/DL (3.4-5.0); Bilirubin,Total 1.8 MG/DL (0.2-1.0); Calcium 7.7 MG/DL (8.5-10.1); Potassium 3.5 MMOL/L (3.5-5.1); Total Protein 5.6 G/DL (6.4-8.3)
[2017-07-15 10:02] LABS: Basophils % 0.4 % (0.0-0.8); Eosinophils # 0.2 10*3/uL (0.0-0.87); Eosinophils % 3.1 % (0.00-10.9); Hemoglobin 9.1 GM/DL (14.0-18.0); Immature Granulocytes % 0.6 %; Immature Granulocytes Absolute 0.04 #; Lymphocytes # 2.6 10*3/uL (1.4-4.0); Lymphocytes % 37.6 % (21.2-54.2); Mean Corpuscular Hemoglobin 36 PG (27-34); Mean Platelet Volume 10.7 FL (9.6-12.0); Monocytes # 0.7 10*3/uL (0.11-0.8); Monocytes % 10.2 % (1.7-12.7); Neutrophils # 3.3 10*3/uL (1.4-7.4); Neutrophils % 48.1 % (38.7-73.9); Platelet Count 95 T/CUMM (130-400); Red Blood Count 2.55 MC/CUMM (3.8-5.5); Red Cell Distribution Width 16.2 % (9.3-17.3); White Blood Count 6.9 T/CUMM (4-12)
[2017-07-15] MEDS: LEVOTHYROXINE 50 MCG TABLET PO SCH (10:15)
[2017-07-15] MEDS: ASPIRIN CHEW 81 MG TABLET PO SCH (10:15)
[2017-07-15] MEDS: LOSARTAN 25 MG TABLET PO SCH (10:15)
[2017-07-15] MEDS: FOLIC ACID INJ 1 MG in SYRINGE 1 EACH IV SCH (10:16)
[2017-07-15] MEDS: ATROPINE 1 % OPH SOLN 5 ML BOTTLE LEFT EYE SCH ×4 (10:16→20:36)
[2017-07-15] MEDS: THIAMINE 200 MG/2 ML VIAL IV SCH (10:16)
[2017-07-15] MEDS: RIFAXIMIN 550 MG TABLET PO SCH ×2 (10:17→20:36)
[2017-07-15 10:55] LABS: Platelet Estimate Decreased
[2017-07-15 10:56] LABS: Hypochromasia Slight
[2017-07-15] MEDS: LATANOPROST 0.005% OPH SOLN 2.5 ML BOTTLE LEFT EYE SCH (20:36)
[2017-07-15] MEDS: TAMSULOSIN 0.4 MG CAPSULE PO SCH (20:36)
[2017-07-16] MEDS: LACTULOSE 20 GM/30 ML UDCUP PO SCH ×7 (02:00→22:11)
[2017-07-16] MEDS: DEXTROSE 5% 1,000 ML IV SCH (06:13)
[2017-07-16] MEDS: LEVOTHYROXINE 50 MCG TABLET PO SCH (06:13)
[2017-07-16 07:58] LABS: Basophils % 0.4 % (0.0-0.8); Eosinophils # 0.3 10*3/uL (0.0-0.87); Eosinophils % 4.4 % (0.00-10.9); Hematocrit 24.6 VOL% (42.0-52.0); Hemoglobin 8.9 GM/DL (14.0-18.0); Immature Granulocytes % 0.3 %; Immature Granulocytes Absolute 0.02 #; Lymphocytes # 2.5 10*3/uL (1.4-4.0); Lymphocytes % 34.8 % (21.2-54.2); Mean Corpuscular HGB Conc 36.2 GM/DL (32-36); Mean Corpuscular Hemoglobin 37 PG (27-34); Mean Corpuscular Volume 100.8 FL (87-102); Mean Platelet Volume 10.3 FL (9.6-12.0); Monocytes # 0.9 10*3/uL (0.11-0.8); Monocytes % 12.3 % (1.7-12.7); Neutrophils # 3.4 10*3/uL (1.4-7.4); Neutrophils % 47.8 % (38.7-73.9); Red Blood Count 2.44 MC/CUMM (3.8-5.5); White Blood Count 7.1 T/CUMM (4-12)
[2017-07-16 08:00] LABS: Platelet Count 93 T/CUMM (130-400)
[2017-07-16 08:18] LABS: Hypochromasia 1+; Macrocytosis 1+
[2017-07-16 08:38] LABS: Albumin 1.6 G/DL (3.4-5.0); Bilirubin,Total 1.5 MG/DL (0.2-1.0); Calcium 7.8 MG/DL (8.5-10.1); Osmolality,Calculated 278.5 MOS/KG (273-304); Potassium 3.6 MMOL/L (3.5-5.1); Total Protein 5.5 G/DL (6.4-8.3)
[2017-07-16] MEDS: RIFAXIMIN 550 MG TABLET PO SCH ×2 (10:43→20:29)
[2017-07-16] MEDS: ASPIRIN CHEW 81 MG TABLET PO SCH (10:44)
[2017-07-16] MEDS: LOSARTAN 25 MG TABLET PO SCH (10:44)
[2017-07-16] MEDS: ATROPINE 1 % OPH SOLN 5 ML BOTTLE LEFT EYE SCH ×4 (10:46→20:29)
[2017-07-16] MEDS: FOLIC ACID INJ 1 MG in SYRINGE 1 EACH IV SCH (10:50)
[2017-07-16] MEDS: THIAMINE 200 MG/2 ML VIAL IV SCH (10:53)
[2017-07-16] MEDS: TAMSULOSIN 0.4 MG CAPSULE PO SCH (20:29)
[2017-07-16] MEDS: LATANOPROST 0.005% OPH SOLN 2.5 ML BOTTLE LEFT EYE SCH (20:30)
[2017-07-17] MEDS: LACTULOSE 20 GM/30 ML UDCUP PO SCH ×3 (02:26→11:31)
[2017-07-17] MEDS: DEXTROSE 5% 1,000 ML IV SCH ×2 (02:37→09:28)
[2017-07-17 06:34] LABS: Basophils % 0.4 % (0.0-0.8); Eosinophils # 0.3 10*3/uL (0.0-0.87); Hematocrit 23.2 VOL% (42.0-52.0); Hemoglobin 8.3 GM/DL (14.0-18.0); Immature Granulocytes % 0.5 %; Immature Granulocytes Absolute 0.04 #; Lymphocytes # 2.8 10*3/uL (1.4-4.0); Lymphocytes % 35.4 % (21.2-54.2); Mean Corpuscular HGB Conc 35.8 GM/DL (32-36); Mean Corpuscular Hemoglobin 36 PG (27-34); Mean Corpuscular Volume 101.8 FL (87-102); Mean Platelet Volume 10.9 FL (9.6-12.0); Monocytes # 1.1 10*3/uL (0.11-0.8); Monocytes % 13.7 % (1.7-12.7); Neutrophils # 3.6 10*3/uL (1.4-7.4); Red Blood Count 2.28 MC/CUMM (3.8-5.5); Red Cell Distribution Width 15.9 % (9.3-17.3); White Blood Count 7.8 T/CUMM (4-12)
[2017-07-17 06:50] LABS: Platelet Count 85 T/CUMM (130-400)
[2017-07-17] MEDS: LEVOTHYROXINE 50 MCG TABLET PO SCH (06:55)
[2017-07-17 07:04] LABS: Albumin 1.6 G/DL (3.4-5.0); Bilirubin,Total 1.4 MG/DL (0.2-1.0); Calcium 7.4 MG/DL (8.5-10.1); Osmolality,Calculated 276.8 MOS/KG (273-304); Potassium 3.6 MMOL/L (3.5-5.1); Total Protein 5.3 G/DL (6.4-8.3)
[2017-07-17 07:47] LABS: Elliptocytes Few; Hypochromasia 1+
[2017-07-17 07:48] LABS: Burr Cells Slight; Giant Platelets Few; Platelet Estimate Decreased
[2017-07-17] MEDS ORDERED: THIAMINE 100 MG TABLET PO SCH (09:00)
[2017-07-17] MEDS ORDERED: FOLIC ACID 1 MG TABLET PO SCH (09:00)
[2017-07-17] MEDS: LOSARTAN 25 MG TABLET PO SCH (10:55)
[2017-07-17] MEDS: ASPIRIN CHEW 81 MG TABLET PO SCH (10:55)
[2017-07-17] MEDS: ATROPINE 1 % OPH SOLN 5 ML BOTTLE LEFT EYE SCH (10:55)
[2017-07-17] MEDS: RIFAXIMIN 550 MG TABLET PO SCH (10:55)
[2017-07-17] MEDS ORDERED: INFLUENZA VIRUS VACCINE 0.5 ML SYRINGE IM ONE (11:27)
[2017-07-17 11:34] VITALS: BP 110/56
== END 2017-07-17 13:10 | disposition home health service (06) | DRG 433 ==
LOC: EDBD → EDUNIT# → N.ED 10:42 → N.EDINP 12:11 → N.CC 13:30 → N.2E 07-15 22:04
PROVIDERS: ADMIT Internal Medicine; ATTEND Internal Medicine

== ENCOUNTER 2017-07-19 15:49 | Inpatient (IN) ==
[2017-07-19] MEDS ORDERED: SODIUM CHLORIDE 0.9% 1,000 ML IV STA (16:27)
[2017-07-19 16:44] LABS: Basophils % 0.7 % (0.0-0.8); Eosinophils # 0.3 10*3/uL (0.0-0.87); Eosinophils % 5.9 % (0.00-10.9); Hemoglobin 10.9 GM/DL (14.0-18.0); Immature Granulocytes % 0.4 %; Immature Granulocytes Absolute 0.02 #; Lymphocytes % 35.1 % (21.2-54.2); Mean Corpuscular HGB Conc 36.3 GM/DL (32-36); Mean Corpuscular Hemoglobin 37 PG (27-34); Mean Corpuscular Volume 100.7 FL (87-102); Mean Platelet Volume 10.6 FL (9.6-12.0); Monocytes # 0.7 10*3/uL (0.11-0.8); Neutrophils # 2.6 10*3/uL (1.4-7.4); Neutrophils % 45.9 % (38.7-73.9); Platelet Count 109 T/CUMM (130-400); Red Blood Count 2.98 MC/CUMM (3.8-5.5); Red Cell Distribution Width 15.7 % (9.3-17.3); White Blood Count 5.6 T/CUMM (4-12)
[2017-07-19 16:56] LABS: Apearance,Urine CLEAR (Clear); Bilirubin,Urine Negative (Negative); Blood, Urine Small mg/dL (Negative); Glucose,Urine (UA) Negative (Negative); Ketones,Urine Negative (Negative); Nitrite,Urine Negative (Negative); Protein,Urine 100 MG/DL; RBC,Urine 2 /HPF (0-4); Urine Color Yellow (Yellow); Urine Specific Gravity 1.004 (1.001-1.035); Urine Urobilinogen < 2.0 EU/DL (0.2-1.0); WBC,Urine 1 /HPF (0-6)
[2017-07-19 17:01] LABS: Lactic Acid 1.2 MMOL/L (0.4-2.0)
[2017-07-19 17:04] LABS: Barbiturates Screen,Urine Negative (Negative); Benzodiazepines Screen,Urine Negative (Negative); Cannabinoid Screen,Urine Negative (Negative); Opiate Screen,Urine Negative (Negative); Phencyclidine Screen,Urine Negative (Negative)
[2017-07-19 17:13] LABS: Albumin 1.9 G/DL (3.4-5.0); Bilirubin,Total 1.2 MG/DL (0.2-1.0); Calcium 8.3 MG/DL (8.5-10.1); Osmolality,Calculated 286.1 MOS/KG (273-304); Potassium 4.5 MMOL/L (3.5-5.1); Total Protein 6.5 G/DL (6.4-8.3)
[2017-07-19] MEDS ORDERED: LACTULOSE 160 GM/240 ML BOTTLE RECTAL ONE (17:54)
[2017-07-19] MEDS ORDERED: ALBUTEROL 2.5 MG/3 ML NEB RESP TX PRN (18:28)
[2017-07-19] MEDS ORDERED: DEXTROSE 50% 25 GM/50 ML VIAL IV PRN (18:28)
[2017-07-19] MEDS ORDERED: GLUCAGON 1 MG VIAL IM PRN (18:28)
[2017-07-19] MEDS: SODIUM CHLORIDE 0.9% 1,000 ML IV SCH (18:35)
[2017-07-19] MEDS: PANTOPRAZOLE 40 MG VIAL IV SCH (18:40)
[2017-07-19 18:44] LABS: ABG Base Excess -3.4 MMOL/L (-2.5-2.5); ABG HCO3 19.4 MMOL/L (20-26); ABG Oxygen Saturation 96.5 % (95-100); ABG PCO2 27.8 MM HG (35-48); ABG PH 7.461 (7.35-7.45); ABG PO2 92.4 MM HG (80-95); ABG TCO2 20.2 MMOL/L (23-27); Allen Test Positive; Pt O2 Delivery Device Room Air
[2017-07-19] MEDS: CALCIUM (CARBONATE)/VITAMIN D 600 MG-400 UNIT TABLET PO SCH (21:18)
[2017-07-19] MEDS: LATANOPROST 0.005% OPH SOLN 2.5 ML BOTTLE LEFT EYE SCH (21:18)
[2017-07-19] MEDS: CARVEDILOL 3.125 MG TABLET PO SCH (21:18)
[2017-07-19] MEDS: INSULIN LISPRO 100 UNIT/ML SUBCUT SCH (21:19)
[2017-07-19] MEDS: TAMSULOSIN 0.4 MG CAPSULE PO SCH (21:19)
[2017-07-19] MEDS: RIFAXIMIN 550 MG TABLET PO SCH (21:19)
[2017-07-19] MEDS: SPIRONOLACTONE 50 MG TABLET PO SCH (21:19)
[2017-07-20 03:53] LABS: Basophils % 0.7 % (0.0-0.8); Eosinophils # 0.3 10*3/uL (0.0-0.87); Eosinophils % 5.8 % (0.00-10.9); Hematocrit 25.8 VOL% (42.0-52.0); Hemoglobin 9.2 GM/DL (14.0-18.0); Immature Granulocytes % 0.4 %; Immature Granulocytes Absolute 0.02 #; Lymphocytes # 1.9 10*3/uL (1.4-4.0); Lymphocytes % 32.9 % (21.2-54.2); Mean Corpuscular HGB Conc 35.7 GM/DL (32-36); Mean Corpuscular Hemoglobin 36 PG (27-34); Mean Corpuscular Volume 101.2 FL (87-102); Monocytes # 0.8 10*3/uL (0.11-0.8); Monocytes % 13.4 % (1.7-12.7); Neutrophils # 2.7 10*3/uL (1.4-7.4); Neutrophils % 46.8 % (38.7-73.9); Red Blood Count 2.55 MC/CUMM (3.8-5.5); Red Cell Distribution Width 15.9 % (9.3-17.3); White Blood Count 5.7 T/CUMM (4-12)
[2017-07-20 03:57] LABS: Platelet Count 98 T/CUMM (130-400)
[2017-07-20 04:20] LABS: Osmolality,Calculated 293.4 MOS/KG (273-304); Potassium 4.2 MMOL/L (3.5-5.1)
[2017-07-20 04:34] LABS: ABG HCO3 19.2 MMOL/L (20-26); ABG Oxygen Saturation 95.8 % (95-100); ABG PCO2 29.5 MM HG (35-48); ABG PH 7.432 (7.35-7.45); ABG PO2 80.3 MM HG (80-95); ABG TCO2 20.1 MMOL/L (23-27); Allen Test Positive; Pt O2 Delivery Device Room Air
[2017-07-20 04:37] LABS: Albumin 1.7 G/DL (3.4-5.0); Bilirubin,Direct 0.35 MG/DL (0.0-0.20); Bilirubin,Indirect 0.7 MG/DL (0.0-1.0); Total Protein 5.6 G/DL (6.4-8.3)
[2017-07-20] MEDS: SODIUM CHLORIDE 0.9% 1,000 ML IV SCH (04:56)
[2017-07-20] MEDS: LEVOTHYROXINE 50 MCG TABLET PO SCH (06:06)
[2017-07-20] MEDS: INSULIN LISPRO 100 UNIT/ML SUBCUT SCH ×4 (07:50→20:46)
[2017-07-20] MEDS: LACTULOSE 20 GM/30 ML UDCUP PO SCH ×2 (08:51→16:08)
[2017-07-20] MEDS: RIFAXIMIN 550 MG TABLET PO SCH ×2 (08:52→20:45)
[2017-07-20] MEDS: MULTIVITAMIN (CENTRUM) TABLET PO SCH (08:52)
[2017-07-20] MEDS: CLOPIDOGREL 75 MG TABLET PO SCH (08:52)
[2017-07-20] MEDS: FOLIC ACID 1 MG TABLET PO SCH (08:52)
[2017-07-20] MEDS: FUROSEMIDE 40 MG TABLET PO SCH (08:52)
[2017-07-20] MEDS: CALCIUM (CARBONATE)/VITAMIN D 600 MG-400 UNIT TABLET PO SCH ×2 (08:53→20:45)
[2017-07-20] MEDS: THIAMINE 100 MG TABLET PO SCH (08:53)
[2017-07-20] MEDS: ASPIRIN CHEW 81 MG TABLET PO SCH (08:53)
[2017-07-20] MEDS: CARVEDILOL 3.125 MG TABLET PO SCH ×2 (08:57→16:08)
[2017-07-20] MEDS ORDERED: LACTULOSE 160 GM/240 ML BOTTLE RECTAL PRN (09:00)
[2017-07-20] MEDS: VANCOMYCIN INJ 1,000 MG in SODIUM CHLORIDE 0.9% 250 ML IV SCH (17:10)
[2017-07-20] MEDS: PANTOPRAZOLE 40 MG VIAL IV SCH (18:31)
[2017-07-20] MEDS: TAMSULOSIN 0.4 MG CAPSULE PO SCH (20:45)
[2017-07-20] MEDS: SPIRONOLACTONE 50 MG TABLET PO SCH (20:45)
[2017-07-20] MEDS: LATANOPROST 0.005% OPH SOLN 2.5 ML BOTTLE LEFT EYE SCH (20:56)
[2017-07-21] MEDS: VANCOMYCIN INJ 1,000 MG in SODIUM CHLORIDE 0.9% 250 ML IV SCH ×3 (00:31→17:10)
[2017-07-21] MEDS: LACTULOSE 20 GM/30 ML UDCUP PO SCH ×3 (00:32→16:48)
[2017-07-21 04:46] LABS: Basophils % 0.6 % (0.0-0.8); Eosinophils # 0.2 10*3/uL (0.0-0.87); Eosinophils % 3.6 % (0.00-10.9); Hematocrit 25.3 VOL% (42.0-52.0); Hemoglobin 8.9 GM/DL (14.0-18.0); Immature Granulocytes % 0.3 %; Immature Granulocytes Absolute 0.02 #; Lymphocytes # 2.1 10*3/uL (1.4-4.0); Lymphocytes % 32.1 % (21.2-54.2); Mean Corpuscular HGB Conc 35.2 GM/DL (32-36); Mean Corpuscular Hemoglobin 36 PG (27-34); Mean Corpuscular Volume 102.4 FL (87-102); Mean Platelet Volume 10.2 FL (9.6-12.0); Monocytes # 0.8 10*3/uL (0.11-0.8); Monocytes % 12.7 % (1.7-12.7); Neutrophils # 3.4 10*3/uL (1.4-7.4); Neutrophils % 50.7 % (38.7-73.9); Platelet Count 96 T/CUMM (130-400); Red Blood Count 2.47 MC/CUMM (3.8-5.5); Red Cell Distribution Width 15.7 % (9.3-17.3); White Blood Count 6.6 T/CUMM (4-12)
[2017-07-21 05:05] LABS: Calcium 8.4 MG/DL (8.5-10.1); Osmolality,Calculated 292.4 MOS/KG (273-304); Potassium 3.7 MMOL/L (3.5-5.1)
[2017-07-21 05:29] LABS: Band Neutrophils 6 % (0-10); Eosinophils 4 % (0-10); Lymphocytes 28 % (20-55); Myelocytes 1 %; Segmented Neutrophils 61 % (50-85); Total Cells Counted 100
[2017-07-21 05:30] LABS: Acanthocytes Few; Anisocytosis 1+
[2017-07-21 05:31] LABS: Hypochromasia 1+; Platelet Estimate Decreased
[2017-07-21] MEDS: LEVOTHYROXINE 50 MCG TABLET PO SCH (06:13)
[2017-07-21] MEDS: INSULIN LISPRO 100 UNIT/ML SUBCUT SCH ×4 (07:26→21:19)
[2017-07-21] MEDS: MULTIVITAMIN (CENTRUM) TABLET PO SCH (08:30)
[2017-07-21] MEDS: CLOPIDOGREL 75 MG TABLET PO SCH (08:30)
[2017-07-21] MEDS: CALCIUM (CARBONATE)/VITAMIN D 600 MG-400 UNIT TABLET PO SCH ×2 (08:30→22:27)
[2017-07-21] MEDS: CARVEDILOL 3.125 MG TABLET PO SCH ×2 (08:31→16:48)
[2017-07-21] MEDS: THIAMINE 100 MG TABLET PO SCH (08:31)
[2017-07-21] MEDS: FUROSEMIDE 40 MG TABLET PO SCH (08:32)
[2017-07-21] MEDS: RIFAXIMIN 550 MG TABLET PO SCH ×2 (08:32→22:27)
[2017-07-21] MEDS: ASPIRIN CHEW 81 MG TABLET PO SCH (08:33)
[2017-07-21] MEDS: FOLIC ACID 1 MG TABLET PO SCH (08:33)
[2017-07-21] MEDS: hydrALAZINE 25 MG TABLET PO SCH ×2 (10:47→22:27)
[2017-07-21] MEDS: PANTOPRAZOLE 40 MG VIAL IV SCH (17:08)
[2017-07-21] MEDS: SPIRONOLACTONE 50 MG TABLET PO SCH (22:27)
[2017-07-21] MEDS: TAMSULOSIN 0.4 MG CAPSULE PO SCH (22:27)
[2017-07-21] MEDS: LATANOPROST 0.005% OPH SOLN 2.5 ML BOTTLE LEFT EYE SCH (22:28)
[2017-07-22] MEDS: LACTULOSE 20 GM/30 ML UDCUP PO SCH ×3 (01:00→15:26)
[2017-07-22] MEDS: VANCOMYCIN INJ 1,000 MG in SODIUM CHLORIDE 0.9% 250 ML IV SCH ×3 (03:27→16:22)
[2017-07-22] MEDS: LEVOTHYROXINE 50 MCG TABLET PO SCH (06:36)
[2017-07-22] MEDS: CALCIUM (CARBONATE)/VITAMIN D 600 MG-400 UNIT TABLET PO SCH ×2 (09:04→21:15)
[2017-07-22] MEDS: FOLIC ACID 1 MG TABLET PO SCH (09:04)
[2017-07-22] MEDS: RIFAXIMIN 550 MG TABLET PO SCH ×2 (09:04→21:15)
[2017-07-22] MEDS: CLOPIDOGREL 75 MG TABLET PO SCH (09:04)
[2017-07-22] MEDS: ASPIRIN CHEW 81 MG TABLET PO SCH (09:04)
[2017-07-22] MEDS: MULTIVITAMIN (CENTRUM) TABLET PO SCH (09:04)
[2017-07-22] MEDS: THIAMINE 100 MG TABLET PO SCH (09:05)
[2017-07-22] MEDS: CARVEDILOL 3.125 MG TABLET PO SCH ×2 (09:05→16:25)
[2017-07-22] MEDS: hydrALAZINE 25 MG TABLET PO SCH ×2 (09:05→21:15)
[2017-07-22] MEDS: INSULIN LISPRO 100 UNIT/ML SUBCUT SCH ×4 (09:05→21:13)
[2017-07-22] MEDS: FUROSEMIDE 40 MG TABLET PO SCH (09:05)
[2017-07-22] MEDS: PANTOPRAZOLE 40 MG VIAL IV SCH (18:35)
[2017-07-22] MEDS: LATANOPROST 0.005% OPH SOLN 2.5 ML BOTTLE LEFT EYE SCH ×2 (21:15→21:31)
[2017-07-22] MEDS: SPIRONOLACTONE 50 MG TABLET PO SCH (21:15)
[2017-07-22] MEDS: TAMSULOSIN 0.4 MG CAPSULE PO SCH (21:15)
[2017-07-23] MEDS: LACTULOSE 20 GM/30 ML UDCUP PO SCH ×2 (00:04→09:09)
[2017-07-23] MEDS: VANCOMYCIN INJ 1,000 MG in SODIUM CHLORIDE 0.9% 250 ML IV SCH (04:41)
[2017-07-23 05:40] LABS: Basophils % 0.4 % (0.0-0.8); Eosinophils # 0.3 10*3/uL (0.0-0.87); Eosinophils % 3.7 % (0.00-10.9); Hematocrit 23.9 VOL% (42.0-52.0); Hemoglobin 8.4 GM/DL (14.0-18.0); Immature Granulocytes % 0.4 %; Immature Granulocytes Absolute 0.03 #; Lymphocytes # 2.1 10*3/uL (1.4-4.0); Lymphocytes % 27.8 % (21.2-54.2); Mean Corpuscular HGB Conc 35.1 GM/DL (32-36); Mean Corpuscular Hemoglobin 36 PG (27-34); Mean Corpuscular Volume 102.6 FL (87-102); Mean Platelet Volume 10.4 FL (9.6-12.0); Monocytes % 13.4 % (1.7-12.7); Neutrophils # 4.2 10*3/uL (1.4-7.4); Neutrophils % 54.3 % (38.7-73.9); Platelet Count 91 T/CUMM (130-400); Red Blood Count 2.33 MC/CUMM (3.8-5.5); Red Cell Distribution Width 15.3 % (9.3-17.3); White Blood Count 7.6 T/CUMM (4-12)
[2017-07-23 06:15] LABS: Eosinophils 3 % (0-10); Hypochromasia 1+; Lymphocytes 23 % (20-55); Segmented Neutrophils 65 % (50-85); Total Cells Counted 100
[2017-07-23 06:16] LABS: Albumin 1.7 G/DL (3.4-5.0); Macrocytosis Slight; Magnesium 1.9 MG/DL (1.8-2.4); Osmolality,Calculated 285.1 MOS/KG (273-304); Ovalocytes Slight; Phosphorous 4.1 MG/DL (2.5-4.9); Potassium 4.1 MMOL/L (3.5-5.1); Total Protein 5.6 G/DL (6.4-8.3)
[2017-07-23 06:17] LABS: Acanthocytes Few; Platelet Estimate Decreased
[2017-07-23] MEDS: LEVOTHYROXINE 50 MCG TABLET PO SCH (06:40)
[2017-07-23] MEDS: INSULIN LISPRO 100 UNIT/ML SUBCUT SCH ×2 (08:25→12:18)
[2017-07-23] MEDS: RIFAXIMIN 550 MG TABLET PO SCH (09:09)
[2017-07-23] MEDS: THIAMINE 100 MG TABLET PO SCH (09:09)
[2017-07-23] MEDS: CALCIUM (CARBONATE)/VITAMIN D 600 MG-400 UNIT TABLET PO SCH (09:09)
[2017-07-23] MEDS: FOLIC ACID 1 MG TABLET PO SCH (09:09)
[2017-07-23] MEDS: CLOPIDOGREL 75 MG TABLET PO SCH (09:09)
[2017-07-23] MEDS: MULTIVITAMIN (CENTRUM) TABLET PO SCH (09:09)
[2017-07-23] MEDS: hydrALAZINE 25 MG TABLET PO SCH (09:10)
[2017-07-23] MEDS: ASPIRIN CHEW 81 MG TABLET PO SCH (09:10)
[2017-07-23] MEDS: CARVEDILOL 3.125 MG TABLET PO SCH (09:15)
[2017-07-23 13:47] LABS: Calcium 8.1 MG/DL (8.5-10.1); Osmolality,Calculated 286.1 MOS/KG (273-304); Potassium 4.5 MMOL/L (3.5-5.1)
[2017-07-23] MEDS ORDERED: LACTULOSE 20 GM/30 ML UDCUP PO SCH ×2 (14:00→22:00)
[2017-07-23] MEDS ORDERED: RIFAXIMIN 550 MG TABLET PO SCH (15:00)
[2017-07-23 16:20] VITALS: BP 102/52
== END 2017-07-23 16:21 | disposition home health service (06) | DRG 443 ==
LOC: EDUNIT# → EDBD → N.ED 15:49 → SUATTDRO 17:24 → N.EDINP 17:24 → N.ICU 18:02 → N.5E 07-21 15:12
PROVIDERS: ADMIT Family Medicine; ATTEND Family Medicine

== ENCOUNTER 2017-07-30 17:05 | Inpatient (IN) ==
[2017-07-30] MEDS ORDERED: ONDANSETRON 4 MG/2 ML VIAL IV PRN (21:43)
[2017-07-30] MEDS ORDERED: ALBUTEROL 2.5 MG/3 ML NEB RESP TX PRN (21:43)
[2017-07-30] MEDS ORDERED: DEXTROSE 50% 25 GM/50 ML VIAL IV PRN (23:07)
[2017-07-30] MEDS ORDERED: GLUCAGON 1 MG VIAL IM PRN (23:07)
[2017-07-31 04:40] LABS: Basophils # 0.1 10*3/uL (0.0-0.2); Basophils % 0.8 % (0.0-0.8); Eosinophils # 0.3 10*3/uL (0.0-0.87); Eosinophils % 4.2 % (0.00-10.9); Hematocrit 23.9 VOL% (42.0-52.0); Hemoglobin 8.4 GM/DL (14.0-18.0); Immature Granulocytes % 0.2 %; Immature Granulocytes Absolute 0.01 #; Lymphocytes # 2.2 10*3/uL (1.4-4.0); Lymphocytes % 34.9 % (21.2-54.2); Mean Corpuscular HGB Conc 35.1 GM/DL (32-36); Mean Corpuscular Hemoglobin 37 PG (27-34); Mean Corpuscular Volume 103.9 FL (87-102); Mean Platelet Volume 9.9 FL (9.6-12.0); Monocytes # 0.8 10*3/uL (0.11-0.8); Monocytes % 12.4 % (1.7-12.7); Neutrophils # 2.9 10*3/uL (1.4-7.4); Neutrophils % 47.5 % (38.7-73.9); Red Cell Distribution Width 14.7 % (9.3-17.3); White Blood Count 6.2 T/CUMM (4-12)
[2017-07-31 05:03] LABS: Albumin 1.7 G/DL (3.4-5.0); Bilirubin,Total 1.3 MG/DL (0.2-1.0); Calcium 7.9 MG/DL (8.5-10.1); Osmolality,Calculated 300.1 MOS/KG (273-304); Potassium 4.2 MMOL/L (3.5-5.1); Total Protein 5.6 G/DL (6.4-8.3)
[2017-07-31 05:07] LABS: Platelet Count 101 T/CUMM (130-400)
[2017-07-31 05:47] LABS: Free T4 (Free Thyroxine) 0.91 NG/DL (0.76-1.46); Thyroid Stimulating Hormone 6.66 uIU/ml (0.358-3.74)
[2017-07-31] MEDS: LACTULOSE 20 GM/30 ML UDCUP PO SCH ×5 (06:38→21:16)
[2017-07-31] MEDS: INSULIN LISPRO 100 UNIT/ML SUBCUT SCH ×4 (07:42→20:54)
[2017-07-31] MEDS: PANTOPRAZOLE 40 MG TABLET PO SCH (10:17)
[2017-07-31] MEDS: FUROSEMIDE 40 MG/4 ML VIAL IV SCH (10:17)
[2017-07-31] MEDS ORDERED: LEVOFLOXACIN INJ 750 MG in PREMIX 1 EACH IV SCH (22:30)
[2017-08-01] MEDS: LACTULOSE 20 GM/30 ML UDCUP PO SCH ×5 (02:36→17:04)
[2017-08-01 05:39] LABS: Basophils % 0.5 % (0.0-0.8); Eosinophils # 0.2 10*3/uL (0.0-0.87); Eosinophils % 2.9 % (0.00-10.9); Hematocrit 24.5 VOL% (42.0-52.0); Hemoglobin 8.7 GM/DL (14.0-18.0); Immature Granulocytes % 0.4 %; Immature Granulocytes Absolute 0.03 #; Lymphocytes # 1.7 10*3/uL (1.4-4.0); Lymphocytes % 22.2 % (21.2-54.2); Mean Corpuscular HGB Conc 35.5 GM/DL (32-36); Mean Corpuscular Hemoglobin 36 PG (27-34); Mean Corpuscular Volume 101.7 FL (87-102); Mean Platelet Volume 10.2 FL (9.6-12.0); Monocytes # 0.6 10*3/uL (0.11-0.8); Monocytes % 8.4 % (1.7-12.7); Neutrophils # 4.9 10*3/uL (1.4-7.4); Neutrophils % 65.6 % (38.7-73.9); Platelet Count 102 T/CUMM (130-400); Red Blood Count 2.41 MC/CUMM (3.8-5.5); Red Cell Distribution Width 14.5 % (9.3-17.3); White Blood Count 7.5 T/CUMM (4-12)
[2017-08-01 06:09] LABS: Calcium 7.9 MG/DL (8.5-10.1); Osmolality,Calculated 297.4 MOS/KG (273-304); Potassium 3.8 MMOL/L (3.5-5.1)
[2017-08-01 09:01] LABS: Hypochromasia 1+; Microcytosis 1+
[2017-08-01] MEDS: INSULIN LISPRO 100 UNIT/ML SUBCUT SCH ×4 (10:42→20:57)
[2017-08-01] MEDS: PANTOPRAZOLE 40 MG TABLET PO SCH (10:42)
[2017-08-01] MEDS: FUROSEMIDE 40 MG/4 ML VIAL IV SCH (10:42)
[2017-08-01] MEDS: RIFAXIMIN 550 MG TABLET PO SCH ×2 (17:03→20:57)
[2017-08-01] MEDS: TAMSULOSIN 0.4 MG CAPSULE PO SCH (20:57)
[2017-08-01] MEDS: CALCIUM (CARBONATE)/VITAMIN D 600 MG-400 UNIT TABLET PO SCH (20:57)
[2017-08-01] MEDS: SPIRONOLACTONE 50 MG TABLET PO SCH (20:58)
[2017-08-01] MEDS: hydrALAZINE 25 MG TABLET PO SCH (20:58)
[2017-08-01] MEDS: CARVEDILOL 3.125 MG TABLET PO SCH (20:58)
[2017-08-01] MEDS: LATANOPROST 0.005% OPH SOLN 2.5 ML BOTTLE LEFT EYE SCH (21:00)
[2017-08-02] MEDS: LACTULOSE 20 GM/30 ML UDCUP PO SCH ×11 (00:38→23:20)
[2017-08-02 04:55] LABS: Basophils % 0.5 % (0.0-0.8); Eosinophils # 0.2 10*3/uL (0.0-0.87); Eosinophils % 2.9 % (0.00-10.9); Hematocrit 22.5 VOL% (42.0-52.0); Hemoglobin 7.9 GM/DL (14.0-18.0); Immature Granulocytes % 0.5 %; Immature Granulocytes Absolute 0.03 #; Lymphocytes # 2.1 10*3/uL (1.4-4.0); Lymphocytes % 35.4 % (21.2-54.2); Mean Corpuscular HGB Conc 35.1 GM/DL (32-36); Mean Corpuscular Hemoglobin 36 PG (27-34); Mean Corpuscular Volume 103.7 FL (87-102); Mean Platelet Volume 9.8 FL (9.6-12.0); Monocytes # 0.7 10*3/uL (0.11-0.8); Monocytes % 11.3 % (1.7-12.7); Neutrophils # 2.9 10*3/uL (1.4-7.4); Neutrophils % 49.4 % (38.7-73.9); Platelet Count 72 T/CUMM (130-400); Red Blood Count 2.17 MC/CUMM (3.8-5.5); Red Cell Distribution Width 14.3 % (9.3-17.3); White Blood Count 5.8 T/CUMM (4-12)
[2017-08-02 05:16] LABS: Calcium 7.9 MG/DL (8.5-10.1); Osmolality,Calculated 294.6 MOS/KG (273-304); Potassium 3.3 MMOL/L (3.5-5.1)
[2017-08-02 07:43] LABS: Band Neutrophils 1 % (0-10); Eosinophils 3 % (0-10); Lymphocytes 32 % (20-55); Segmented Neutrophils 64 % (50-85); Total Cells Counted 100
[2017-08-02 07:44] LABS: Anisocytosis Slight; Macrocytosis 2+; Platelet Estimate Decreased
[2017-08-02 07:45] LABS: Burr Cells Few
[2017-08-02] MEDS: MULTIVITAMIN (CENTRUM) TABLET PO SCH (08:53)
[2017-08-02] MEDS: LEVOTHYROXINE 50 MCG TABLET PO SCH (08:53)
[2017-08-02] MEDS: CLOPIDOGREL 75 MG TABLET PO SCH (08:54)
[2017-08-02] MEDS: hydrALAZINE 25 MG TABLET PO SCH ×2 (08:54→21:38)
[2017-08-02] MEDS: CALCIUM (CARBONATE)/VITAMIN D 600 MG-400 UNIT TABLET PO SCH ×2 (08:54→21:38)
[2017-08-02] MEDS: THIAMINE 100 MG TABLET PO SCH (08:54)
[2017-08-02] MEDS: ASPIRIN CHEW 81 MG TABLET PO SCH (08:54)
[2017-08-02] MEDS: FOLIC ACID 1 MG TABLET PO SCH (08:55)
[2017-08-02] MEDS: PANTOPRAZOLE 40 MG TABLET PO SCH (08:55)
[2017-08-02] MEDS: FUROSEMIDE 40 MG/4 ML VIAL IV SCH (08:55)
[2017-08-02] MEDS: RIFAXIMIN 550 MG TABLET PO SCH ×3 (08:55→23:07)
[2017-08-02] MEDS ORDERED: PANTOPRAZOLE 40 MG TABLET PO SCH (09:00)
[2017-08-02] MEDS: INSULIN LISPRO 100 UNIT/ML SUBCUT SCH ×4 (09:01→22:37)
[2017-08-02] MEDS: CARVEDILOL 3.125 MG TABLET PO SCH ×2 (09:02→21:38)
[2017-08-02] MEDS: SPIRONOLACTONE 50 MG TABLET PO SCH (21:38)
[2017-08-02] MEDS: TAMSULOSIN 0.4 MG CAPSULE PO SCH (21:38)
[2017-08-02] MEDS: LATANOPROST 0.005% OPH SOLN 2.5 ML BOTTLE LEFT EYE SCH (23:20)
[2017-08-03] MEDS: LEVOFLOXACIN INJ 750 MG in PREMIX 1 EACH IV SCH (00:24)
[2017-08-03 03:19] LABS: Basophils % 0.6 % (0.0-0.8); Eosinophils # 0.3 10*3/uL (0.0-0.87); Eosinophils % 3.9 % (0.00-10.9); Hematocrit 23.7 VOL% (42.0-52.0); Hemoglobin 8.3 GM/DL (14.0-18.0); Immature Granulocytes % 0.3 %; Immature Granulocytes Absolute 0.02 #; Lymphocytes # 2.4 10*3/uL (1.4-4.0); Lymphocytes % 34.9 % (21.2-54.2); Mean Corpuscular Hemoglobin 36 PG (27-34); Mean Corpuscular Volume 102.6 FL (87-102); Mean Platelet Volume 10.1 FL (9.6-12.0); Monocytes # 0.8 10*3/uL (0.11-0.8); Monocytes % 10.8 % (1.7-12.7); Neutrophils # 3.4 10*3/uL (1.4-7.4); Neutrophils % 49.5 % (38.7-73.9); Red Blood Count 2.31 MC/CUMM (3.8-5.5); Red Cell Distribution Width 14.5 % (9.3-17.3); White Blood Count 6.9 T/CUMM (4-12)
[2017-08-03 03:20] LABS: Platelet Count 96 T/CUMM (130-400)
[2017-08-03 03:46] LABS: Calcium 8.1 MG/DL (8.5-10.1); Osmolality,Calculated 293.6 MOS/KG (273-304); Potassium 3.7 MMOL/L (3.5-5.1)
[2017-08-03] MEDS: LACTULOSE 20 GM/30 ML UDCUP PO SCH ×3 (06:20→21:27)
[2017-08-03] MEDS: INSULIN LISPRO 100 UNIT/ML SUBCUT SCH ×4 (09:25→21:27)
[2017-08-03] MEDS: MULTIVITAMIN (CENTRUM) TABLET PO SCH (09:27)
[2017-08-03] MEDS: CALCIUM (CARBONATE)/VITAMIN D 600 MG-400 UNIT TABLET PO SCH ×2 (09:27→21:27)
[2017-08-03] MEDS: CLOPIDOGREL 75 MG TABLET PO SCH (09:27)
[2017-08-03] MEDS: CARVEDILOL 3.125 MG TABLET PO SCH ×2 (09:27→21:27)
[2017-08-03] MEDS: PANTOPRAZOLE 40 MG TABLET PO SCH (09:27)
[2017-08-03] MEDS: THIAMINE 100 MG TABLET PO SCH (09:27)
[2017-08-03] MEDS: LEVOTHYROXINE 50 MCG TABLET PO SCH (09:27)
[2017-08-03] MEDS: FOLIC ACID 1 MG TABLET PO SCH (09:27)
[2017-08-03] MEDS: ASPIRIN CHEW 81 MG TABLET PO SCH (09:27)
[2017-08-03] MEDS: hydrALAZINE 25 MG TABLET PO SCH ×2 (09:28→21:27)
[2017-08-03] MEDS: FUROSEMIDE 40 MG/4 ML VIAL IV SCH (09:30)
[2017-08-03] MEDS: RIFAXIMIN 550 MG TABLET PO SCH ×3 (12:32→21:27)
[2017-08-03] MEDS: TAMSULOSIN 0.4 MG CAPSULE PO SCH (21:27)
[2017-08-03] MEDS: SPIRONOLACTONE 50 MG TABLET PO SCH (21:27)
[2017-08-03] MEDS: LATANOPROST 0.005% OPH SOLN 2.5 ML BOTTLE LEFT EYE SCH (21:28)
[2017-08-04] MEDS: LEVOTHYROXINE 50 MCG TABLET PO SCH (06:23)
[2017-08-04] MEDS: LACTULOSE 20 GM/30 ML UDCUP PO SCH ×3 (06:24→22:28)
[2017-08-04] MEDS: INSULIN LISPRO 100 UNIT/ML SUBCUT SCH ×4 (09:15→22:36)
[2017-08-04] MEDS: MULTIVITAMIN (CENTRUM) TABLET PO SCH (09:16)
[2017-08-04] MEDS: ASPIRIN CHEW 81 MG TABLET PO SCH (09:16)
[2017-08-04] MEDS: hydrALAZINE 25 MG TABLET PO SCH ×2 (09:16→22:28)
[2017-08-04] MEDS: CALCIUM (CARBONATE)/VITAMIN D 600 MG-400 UNIT TABLET PO SCH ×2 (09:16→22:26)
[2017-08-04] MEDS: CARVEDILOL 3.125 MG TABLET PO SCH ×2 (09:16→22:27)
[2017-08-04] MEDS: THIAMINE 100 MG TABLET PO SCH (09:17)
[2017-08-04] MEDS: PANTOPRAZOLE 40 MG TABLET PO SCH (09:17)
[2017-08-04] MEDS: FOLIC ACID 1 MG TABLET PO SCH (09:17)
[2017-08-04] MEDS: CLOPIDOGREL 75 MG TABLET PO SCH (09:17)
[2017-08-04] MEDS: RIFAXIMIN 550 MG TABLET PO SCH ×3 (09:18→22:27)
[2017-08-04] MEDS: TAMSULOSIN 0.4 MG CAPSULE PO SCH (22:27)
[2017-08-04] MEDS: SPIRONOLACTONE 50 MG TABLET PO SCH (22:28)
[2017-08-04] MEDS: LEVOFLOXACIN INJ 750 MG in PREMIX 1 EACH IV SCH (22:31)
[2017-08-04] MEDS: LATANOPROST 0.005% OPH SOLN 2.5 ML BOTTLE LEFT EYE SCH (22:41)
[2017-08-05] MEDS: LACTULOSE 20 GM/30 ML UDCUP PO SCH (06:30)
[2017-08-05] MEDS: LEVOTHYROXINE 50 MCG TABLET PO SCH (06:33)
[2017-08-05] MEDS: INSULIN LISPRO 100 UNIT/ML SUBCUT SCH ×2 (09:53→12:09)
[2017-08-05] MEDS: ASPIRIN CHEW 81 MG TABLET PO SCH (09:54)
[2017-08-05] MEDS: hydrALAZINE 25 MG TABLET PO SCH (09:54)
[2017-08-05] MEDS: CARVEDILOL 3.125 MG TABLET PO SCH (09:55)
[2017-08-05] MEDS: FOLIC ACID 1 MG TABLET PO SCH (09:55)
[2017-08-05] MEDS: MULTIVITAMIN (CENTRUM) TABLET PO SCH (09:55)
[2017-08-05] MEDS: CALCIUM (CARBONATE)/VITAMIN D 600 MG-400 UNIT TABLET PO SCH (09:55)
[2017-08-05] MEDS: PANTOPRAZOLE 40 MG TABLET PO SCH (09:56)
[2017-08-05] MEDS: THIAMINE 100 MG TABLET PO SCH (09:56)
[2017-08-05] MEDS: RIFAXIMIN 550 MG TABLET PO SCH (09:56)
[2017-08-05] MEDS: CLOPIDOGREL 75 MG TABLET PO SCH (09:56)
[2017-08-05 11:56] VITALS: BP 135/57
== END 2017-08-05 12:55 | disposition home health service (06) | DRG 441 ==
LOC: N.2E 19:59

== ENCOUNTER 2017-08-30 09:32 | Inpatient (IN) ==
[2017-08-30 10:16] LABS: Basophils % 0.7 % (0.0-0.8); Eosinophils # 0.3 10*3/uL (0.0-0.87); Eosinophils % 4.6 % (0.00-10.9); Hematocrit 28.2 VOL% (42.0-52.0); Hemoglobin 9.7 GM/DL (14.0-18.0); Immature Granulocytes % 0.2 %; Immature Granulocytes Absolute 0.01 #; Lymphocytes # 2.6 10*3/uL (1.4-4.0); Lymphocytes % 47.3 % (21.2-54.2); Mean Corpuscular HGB Conc 34.4 GM/DL (32-36); Mean Corpuscular Hemoglobin 36 PG (27-34); Mean Corpuscular Volume 103.7 FL (87-102); Mean Platelet Volume 10.5 FL (9.6-12.0); Monocytes # 0.7 10*3/uL (0.11-0.8); Monocytes % 12.3 % (1.7-12.7); Neutrophils # 1.9 10*3/uL (1.4-7.4); Neutrophils % 34.9 % (38.7-73.9); Red Blood Count 2.72 MC/CUMM (3.8-5.5); Red Cell Distribution Width 13.8 % (9.3-17.3); White Blood Count 5.5 T/CUMM (4-12)
[2017-08-30 10:17] LABS: Platelet Count 98 T/CUMM (130-400)
[2017-08-30 10:45] LABS: Albumin 1.8 G/DL (3.4-5.0); Bilirubin,Total 0.9 MG/DL (0.2-1.0); Calcium 8.7 MG/DL (8.5-10.1); Osmolality,Calculated 289.6 MOS/KG (273-304); Potassium 3.8 MMOL/L (3.5-5.1); Total Protein 6.7 G/DL (6.4-8.3)
[2017-08-30 11:01] LABS: Apearance,Urine CLEAR (Clear); Bilirubin,Urine Negative (Negative); Blood, Urine Small mg/dL (Negative); Glucose,Urine (UA) Negative (Negative); Ketones,Urine Negative (Negative); Mucus,Urine Occasional /LPF (Occasional); Nitrite,Urine Negative (Negative); Protein,Urine 30 MG/DL; RBC,Urine 1 /HPF (0-4); Urine Color Yellow (Yellow); Urine Specific Gravity 1.008 (1.001-1.035); Urine Urobilinogen < 2.0 EU/DL (0.2-1.0); WBC,Urine 1 /HPF (0-6)
[2017-08-30 11:05] LABS: Hypochromasia 1+; Microcytosis 1+
[2017-08-30] MEDS ORDERED: SODIUM CHLORIDE 0.9% 1,000 ML IV STA (12:29)
[2017-08-30] MEDS ORDERED: TUBERCULIN SKIN TEST 0.1 ML SYRINGE INTRADERM ONE (14:42)
[2017-08-30 15:38] LABS: Folate > 24.0 NG/ML (5.4-24.0); Vitamin B12 1398 PG/ML (211-911)
[2017-08-30] MEDS: DEXTROSE 5% NACL 0.22% 1,000 ML IV SCH (18:07)
[2017-08-30] MEDS: THIAMINE 200 MG/2 ML VIAL IV SCH (18:08)
[2017-08-30] MEDS: FOLIC ACID INJ 1 MG in SYRINGE 1 EACH IV SCH (18:08)
[2017-08-30] MEDS: LACTULOSE 20 GM/30 ML UDCUP PO SCH ×2 (18:10→21:02)
[2017-08-30] MEDS: RIFAXIMIN 550 MG TABLET PO SCH ×2 (18:10→20:58)
[2017-08-30] MEDS: hydrALAZINE 25 MG TABLET PO SCH (20:58)
[2017-08-30] MEDS: CARVEDILOL 3.125 MG TABLET PO SCH (20:58)
[2017-08-30] MEDS: CALCIUM (CARBONATE)/VITAMIN D 600 MG-400 UNIT TABLET PO SCH (20:58)
[2017-08-30] MEDS: TAMSULOSIN 0.4 MG CAPSULE PO SCH (20:58)
[2017-08-30] MEDS: SPIRONOLACTONE 50 MG TABLET PO SCH (20:58)
[2017-08-30] MEDS: LATANOPROST 0.005% OPH SOLN 2.5 ML BOTTLE LEFT EYE SCH (21:05)
[2017-08-31] MEDS: DEXTROSE 5% NACL 0.22% 1,000 ML IV SCH ×3 (02:21→22:45)
[2017-08-31 06:09] LABS: Basophils % 0.8 % (0.0-0.8); Eosinophils # 0.2 10*3/uL (0.0-0.87); Eosinophils % 3.9 % (0.00-10.9); Hematocrit 24.5 VOL% (42.0-52.0); Hemoglobin 8.5 GM/DL (14.0-18.0); Immature Granulocytes % 0.4 %; Immature Granulocytes Absolute 0.02 #; Lymphocytes # 2.1 10*3/uL (1.4-4.0); Lymphocytes % 44.1 % (21.2-54.2); Mean Corpuscular HGB Conc 34.7 GM/DL (32-36); Mean Corpuscular Hemoglobin 36 PG (27-34); Mean Corpuscular Volume 102.9 FL (87-102); Mean Platelet Volume 10.6 FL (9.6-12.0); Monocytes # 0.6 10*3/uL (0.11-0.8); Neutrophils # 1.8 10*3/uL (1.4-7.4); Neutrophils % 37.8 % (38.7-73.9); Platelet Count 95 T/CUMM (130-400); Red Blood Count 2.38 MC/CUMM (3.8-5.5); Red Cell Distribution Width 13.8 % (9.3-17.3); White Blood Count 4.9 T/CUMM (4-12)
[2017-08-31] MEDS: LACTULOSE 20 GM/30 ML UDCUP PO SCH ×3 (06:19→17:01)
[2017-08-31] MEDS: LEVOTHYROXINE 50 MCG TABLET PO SCH (06:19)
[2017-08-31 06:44] LABS: Calcium 8.4 MG/DL (8.5-10.1); Osmolality,Calculated 287.7 MOS/KG (273-304); Potassium 3.6 MMOL/L (3.5-5.1)
[2017-08-31 07:05] LABS: Anisocytosis Slight; Macrocytosis 2+
[2017-08-31 07:06] LABS: Platelet Estimate Decreased
[2017-08-31] MEDS: RIFAXIMIN 550 MG TABLET PO SCH ×3 (09:36→21:51)
[2017-08-31] MEDS: ASPIRIN CHEW 81 MG TABLET PO SCH (09:36)
[2017-08-31] MEDS: CLOPIDOGREL 75 MG TABLET PO SCH (09:36)
[2017-08-31] MEDS: MULTIVITAMIN (CENTRUM) TABLET PO SCH (09:36)
[2017-08-31] MEDS: FOLIC ACID 1 MG TABLET PO SCH (09:36)
[2017-08-31] MEDS: hydrALAZINE 25 MG TABLET PO SCH ×2 (09:36→21:51)
[2017-08-31] MEDS: CALCIUM (CARBONATE)/VITAMIN D 600 MG-400 UNIT TABLET PO SCH ×2 (09:36→21:51)
[2017-08-31] MEDS: THIAMINE 100 MG TABLET PO SCH (09:36)
[2017-08-31] MEDS: PANTOPRAZOLE 40 MG TABLET PO SCH (09:36)
[2017-08-31] MEDS: FOLIC ACID INJ 1 MG in SYRINGE 1 EACH IV SCH (09:37)
[2017-08-31] MEDS: CARVEDILOL 3.125 MG TABLET PO SCH ×2 (09:37→17:00)
[2017-08-31] MEDS: THIAMINE 200 MG/2 ML VIAL IV SCH (09:43)
[2017-08-31 14:09] LABS: ABG Base Excess -3.5 MMOL/L (-2.5-2.5); ABG HCO3 19.1 MMOL/L (20-26); ABG Oxygen Saturation 96.2 % (95-100); ABG PCO2 26.7 MM HG (35-48); ABG PH 7.473 (7.35-7.45); ABG PO2 84.4 MM HG (80-95); ABG TCO2 19.9 MMOL/L (23-27)
[2017-08-31] MEDS: TAMSULOSIN 0.4 MG CAPSULE PO SCH (21:51)
[2017-08-31] MEDS: LATANOPROST 0.005% OPH SOLN 2.5 ML BOTTLE LEFT EYE SCH (21:51)
[2017-08-31] MEDS: SPIRONOLACTONE 50 MG TABLET PO SCH (21:51)
[2017-09-01] MEDS: LACTULOSE 20 GM/30 ML UDCUP PO SCH ×4 (00:33→17:45)
[2017-09-01 05:27] LABS: Basophils % 0.6 % (0.0-0.8); Eosinophils # 0.2 10*3/uL (0.0-0.87); Eosinophils % 4.2 % (0.00-10.9); Hematocrit 23.4 VOL% (42.0-52.0); Hemoglobin 8.3 GM/DL (14.0-18.0); Immature Granulocytes % 0.4 %; Immature Granulocytes Absolute 0.02 #; Lymphocytes # 2.3 10*3/uL (1.4-4.0); Lymphocytes % 43.2 % (21.2-54.2); Mean Corpuscular HGB Conc 35.5 GM/DL (32-36); Mean Corpuscular Hemoglobin 36 PG (27-34); Mean Corpuscular Volume 101.7 FL (87-102); Mean Platelet Volume 10.8 FL (9.6-12.0); Monocytes # 0.8 10*3/uL (0.11-0.8); Monocytes % 14.9 % (1.7-12.7); Neutrophils # 1.9 10*3/uL (1.4-7.4); Neutrophils % 36.7 % (38.7-73.9); Platelet Count 87 T/CUMM (130-400); Red Cell Distribution Width 13.8 % (9.3-17.3); White Blood Count 5.3 T/CUMM (4-12)
[2017-09-01 06:04] LABS: Osmolality,Calculated 280.3 MOS/KG (273-304); Potassium 3.4 MMOL/L (3.5-5.1)
[2017-09-01] MEDS: LEVOTHYROXINE 50 MCG TABLET PO SCH (06:28)
[2017-09-01 06:30] LABS: Macrocytosis 2+; Platelet Estimate Decreased
[2017-09-01] MEDS: DEXTROSE 5% NACL 0.22% 1,000 ML IV SCH ×2 (09:10→17:45)
[2017-09-01] MEDS: hydrALAZINE 25 MG TABLET PO SCH ×2 (09:11→20:53)
[2017-09-01] MEDS: MULTIVITAMIN (CENTRUM) TABLET PO SCH (09:11)
[2017-09-01] MEDS: ASPIRIN CHEW 81 MG TABLET PO SCH (09:11)
[2017-09-01] MEDS: CALCIUM (CARBONATE)/VITAMIN D 600 MG-400 UNIT TABLET PO SCH ×2 (09:12→20:53)
[2017-09-01] MEDS: THIAMINE 200 MG/2 ML VIAL IV SCH (09:12)
[2017-09-01] MEDS: PANTOPRAZOLE 40 MG TABLET PO SCH (09:12)
[2017-09-01] MEDS: FOLIC ACID 1 MG TABLET PO SCH (09:12)
[2017-09-01] MEDS: THIAMINE 100 MG TABLET PO SCH (09:12)
[2017-09-01] MEDS: CLOPIDOGREL 75 MG TABLET PO SCH (09:13)
[2017-09-01] MEDS: FOLIC ACID INJ 1 MG in SYRINGE 1 EACH IV SCH (09:13)
[2017-09-01] MEDS: RIFAXIMIN 550 MG TABLET PO SCH ×3 (09:14→20:53)
[2017-09-01] MEDS: CARVEDILOL 3.125 MG TABLET PO SCH ×2 (09:15→17:45)
[2017-09-01] MEDS: POTASSIUM CHLORIDE 20 MEQ/15 ML UDCUP PER TUBE SCH ×2 (13:41→17:45)
[2017-09-01] MEDS: LATANOPROST 0.005% OPH SOLN 2.5 ML BOTTLE LEFT EYE SCH (20:53)
[2017-09-01] MEDS: TAMSULOSIN 0.4 MG CAPSULE PO SCH (20:53)
[2017-09-01] MEDS: SPIRONOLACTONE 50 MG TABLET PO SCH (20:53)
[2017-09-02] MEDS: LACTULOSE 20 GM/30 ML UDCUP PO SCH ×5 (00:31→23:00)
[2017-09-02] MEDS: POTASSIUM CHLORIDE 20 MEQ/15 ML UDCUP PER TUBE SCH (00:37)
[2017-09-02] MEDS: DEXTROSE 5% NACL 0.22% 1,000 ML IV SCH (04:00)
[2017-09-02] MEDS: LEVOTHYROXINE 50 MCG TABLET PO SCH (06:00)
[2017-09-02 06:55] LABS: INR 1.2; PT Patient Result 12.7 SECS
[2017-09-02 07:20] LABS: Albumin 1.7 G/DL (3.4-5.0); Bilirubin,Total 0.7 MG/DL (0.2-1.0); Calcium 7.9 MG/DL (8.5-10.1); Magnesium 1.7 MG/DL (1.8-2.4); Osmolality,Calculated 272.8 MOS/KG (273-304); Potassium 3.9 MMOL/L (3.5-5.1); Total Protein 5.8 G/DL (6.4-8.3)
[2017-09-02] MEDS ORDERED: GLUCAGON 1 MG VIAL IM PRN (08:39)
[2017-09-02] MEDS ORDERED: DEXTROSE 50% 25 GM/50 ML VIAL IV PRN (08:39)
[2017-09-02] MEDS: FOLIC ACID INJ 1 MG in SYRINGE 1 EACH IV SCH (10:01)
[2017-09-02] MEDS: THIAMINE 200 MG/2 ML VIAL IV SCH (10:04)
[2017-09-02] MEDS: PANTOPRAZOLE 40 MG TABLET PO SCH (10:08)
[2017-09-02] MEDS: CALCIUM (CARBONATE)/VITAMIN D 600 MG-400 UNIT TABLET PO SCH ×2 (10:08→21:24)
[2017-09-02] MEDS: MULTIVITAMIN (CENTRUM) TABLET PO SCH (10:08)
[2017-09-02] MEDS: THIAMINE 100 MG TABLET PO SCH (10:08)
[2017-09-02] MEDS: ASPIRIN CHEW 81 MG TABLET PO SCH (10:09)
[2017-09-02] MEDS: RIFAXIMIN 550 MG TABLET PO SCH ×3 (10:09→21:24)
[2017-09-02] MEDS: CARVEDILOL 3.125 MG TABLET PO SCH ×2 (10:09→17:54)
[2017-09-02] MEDS: FOLIC ACID 1 MG TABLET PO SCH (10:09)
[2017-09-02] MEDS: CLOPIDOGREL 75 MG TABLET PO SCH (10:09)
[2017-09-02] MEDS: hydrALAZINE 25 MG TABLET PO SCH ×2 (10:09→21:24)
[2017-09-02] MEDS: TAMSULOSIN 0.4 MG CAPSULE PO SCH (21:24)
[2017-09-02] MEDS: SPIRONOLACTONE 50 MG TABLET PO SCH (21:24)
[2017-09-02] MEDS: LATANOPROST 0.005% OPH SOLN 2.5 ML BOTTLE LEFT EYE SCH (21:25)
[2017-09-02] MEDS ORDERED: ZALEPLON 5 MG CAPSULE PO ONE (22:47)
[2017-09-03 06:45] LABS: Calcium 8.5 MG/DL (8.5-10.1); Osmolality,Calculated 277.5 MOS/KG (273-304); Potassium 4.2 MMOL/L (3.5-5.1)
[2017-09-03] MEDS: LACTULOSE 20 GM/30 ML UDCUP PO SCH ×4 (07:19→23:53)
[2017-09-03] MEDS: LEVOTHYROXINE 50 MCG TABLET PO SCH (07:19)
[2017-09-03] MEDS: FOLIC ACID 1 MG TABLET PO SCH ×2 (08:45→11:49)
[2017-09-03] MEDS: CLOPIDOGREL 75 MG TABLET PO SCH ×2 (08:45→11:49)
[2017-09-03] MEDS: CALCIUM (CARBONATE)/VITAMIN D 600 MG-400 UNIT TABLET PO SCH ×3 (08:45→20:50)
[2017-09-03] MEDS: THIAMINE 100 MG TABLET PO SCH ×2 (08:45→11:48)
[2017-09-03] MEDS: PANTOPRAZOLE 40 MG TABLET PO SCH ×2 (08:45→11:49)
[2017-09-03] MEDS: MULTIVITAMIN (CENTRUM) TABLET PO SCH ×2 (08:45→11:49)
[2017-09-03] MEDS: ASPIRIN CHEW 81 MG TABLET PO SCH ×2 (08:45→11:48)
[2017-09-03] MEDS: RIFAXIMIN 550 MG TABLET PO SCH ×4 (08:45→20:50)
[2017-09-03] MEDS: CARVEDILOL 3.125 MG TABLET PO SCH ×3 (08:47→17:40)
[2017-09-03] MEDS: hydrALAZINE 25 MG TABLET PO SCH ×3 (08:47→20:51)
[2017-09-03] MEDS ORDERED: TUBERCULIN SKIN TEST 0.1 ML SYRINGE INTRADERM ONE (11:00)
[2017-09-03] MEDS: SPIRONOLACTONE 50 MG TABLET PO SCH (20:50)
[2017-09-03] MEDS: TAMSULOSIN 0.4 MG CAPSULE PO SCH (20:50)
[2017-09-03] MEDS: LATANOPROST 0.005% OPH SOLN 2.5 ML BOTTLE LEFT EYE SCH (21:39)
[2017-09-04] MEDS: LACTULOSE 20 GM/30 ML UDCUP PO SCH ×3 (06:09→11:45)
[2017-09-04] MEDS: LEVOTHYROXINE 50 MCG TABLET PO SCH (06:10)
[2017-09-04] MEDS ORDERED: TUBERCULIN SKIN TEST 0.1 ML SYRINGE INTRADERM ONE (08:00)
[2017-09-04] MEDS: RIFAXIMIN 550 MG TABLET PO SCH (08:42)
[2017-09-04] MEDS: MULTIVITAMIN (CENTRUM) TABLET PO SCH (08:42)
[2017-09-04] MEDS: THIAMINE 100 MG TABLET PO SCH (08:42)
[2017-09-04] MEDS: CALCIUM (CARBONATE)/VITAMIN D 600 MG-400 UNIT TABLET PO SCH (08:42)
[2017-09-04] MEDS: hydrALAZINE 25 MG TABLET PO SCH (08:42)
[2017-09-04] MEDS: CARVEDILOL 3.125 MG TABLET PO SCH (08:43)
[2017-09-04] MEDS: CLOPIDOGREL 75 MG TABLET PO SCH (08:43)
[2017-09-04] MEDS: ASPIRIN CHEW 81 MG TABLET PO SCH (08:43)
[2017-09-04] MEDS: FOLIC ACID 1 MG TABLET PO SCH (08:43)
[2017-09-04] MEDS: PANTOPRAZOLE 40 MG TABLET PO SCH (08:43)
[2017-09-04 12:25] VITALS: BP 84/60
== END 2017-09-04 12:28 | DRG 442 ==
LOC: EDUNIT# → EDBD → N.ED 09:32 → N.EDINP 12:47 → SUATTDRO 12:47 → N.2E 13:36 → N.5E 09-02 07:41
PROVIDERS: ADMIT Internal Medicine; ATTEND Internal Medicine